=== PATIENT | male | born 1935 | race African-American/Black ===

== ENCOUNTER 2017-06-19 17:44 | Inpatient (IN) | payer MEDICARE ==
[2017-06-19 18:27] LABS: Hemoglobin 14.7 g/dL (14.0-18.0); Mean Corpuscular HGB CONC 32.2 g/dL (32.0-36.0); Mean Corpuscular Hemoglobin 29.7 pg (27.0-31.0); Mean Corpuscular Volume 92.2 fl (80.0-94.0); Mean Platelet Volume 6.9 fL (7.4-10.4); Platelet Count 223 thou/uL (130-400); RBC Distribution Width 12.2 % (11.5-14.5); Red Blood Cell (RBC) Count 4.94 mill/uL (4.70-6.10)
[2017-06-19 18:29] LABS: Bilirubin Negative (Negative); Blood, Urine Moderate (Negative); Clarity CLOUDY (Clear); Glucose, Urine (Dipstick) Negative (Negative); Leukocyte Negative (Negative); Nitrite Negative (Negative); Protein, Urine (Dipstick) Trace mg/dL (Neg-Trace); Specific Gravity, Urine 1.021 (1.002-1.036); Urobilinogen 0.2 mg/dL (0.2-1.0)
[2017-06-19 18:31] LABS: Bacteria/HPF 1+ HPF (None Seen); Hyaline Casts/LPF 0-3 HYALINE CAST LPF (0-3 Hyaline); Pathc Cast-AUWi Flag 0.27 (0-2.49); Squamous Epithelial None Seen HPF (0-3)
[2017-06-19 18:33] LABS: Yeast-AUWi Flag 274.5 (0-25.0)
--- NOTE | 2017-06-19 18:40 | RAD ---
SINGLE VIEW OF THE CHEST: Comparison: 05-30-16 History: Slid out of a chair at home this afternoon with left hip pain, fever, and tachycardia. FINDINGS: Single view of the chest shows a normal sized cardiomediastinal silhouette. There is no evidence of c onsolidation, mass, or pleural effusion. The bones are unremarkable. IMPRESSION: No evidence of acute cardiopulmonary disease. POS: [facility]
[2017-06-19 18:42] LABS: RBC/HPF 0-3 HPF (0-3); Yeast-All Forms None Seen HPF (None Seen)
[2017-06-19 18:47] LABS: ALT (SGPT) 8 U/L (8-55); AST (SGOT) 27 U/L (5-34); Albumin 4.2 g/dL (3.4-4.8); Alkaline Phosphatase 162 U/L (40-150); Anion Gap 18 mmol/L (10-20); BUN (Urea Nitrogen) 44 mg/dL (8.4-25.7); Calc. Creatinine Clearance 0 mL/min (70-130); Carbon Dioxide 20 mmol/L (23-31); Chloride 103 mmol/L (98-107); Estimated GFR-MDRD 32; Globulin 3.8 g/dL (2.4-3.5); Glucose 96 mg/dL (83-110); Potassium 4.4 mmol/L (3.5-5.1); Sodium 137 mmol/L (136-145)
[2017-06-19] MEDS ORDERED: Acetaminophen 325 MG TAB ONE (18:48)
[2017-06-19 18:52] LABS: Band 18 % (5-11); Lymphocytes 5 % (21-51); MDiff Complete? YES; Monocytes 4 % (0-10); Neutrophil 73 % (42-75); PLT Morphology Comment Appears Adequate
--- NOTE | 2017-06-19 18:57 | RAD ---
SINGLE VIEW OF THE PELVIS: Comparison: 05-29-16 History: Fell out of chair at home this afternoon with left hip pain. FINDINGS: Single view of the pelvis shows no evidence of acute fracture or dislocation. No degenerative changes are seen in either hip. No focal soft tissue swelling is seen. IMPRESSION: No evidence of acute osseous abnormality. POS: [facility]
[2017-06-19] MEDS ORDERED: Piperacillin/Tazobactam 4.5 GM in Sodium Chloride 0.9% 100 ML IVPB SCH (19:00)
[2017-06-19] MEDS ORDERED: Vancomycin HCl 500 MG VIAL ONE (19:01)
[2017-06-19] MEDS ORDERED: Sterile Water 10 ML ONE (19:07)
[2017-06-19] MEDS ORDERED: Acetaminophen 325 MG TAB PO PRN ×2 (20:44→22:06)
[2017-06-19] MEDS ORDERED: Ondansetron HCl/PF 4 MG/2 ML Vial IVP PRN (20:44)
[2017-06-19] MEDS ORDERED: Ondansetron ODT 4 MG TAB SL PRN (20:44)
[2017-06-19 21:31] VITALS: BMI 21.5
[2017-06-19] MEDS ORDERED: Guaifenesin DM 100-10/5 ML UDCUP PO PRN (22:06)
[2017-06-19] MEDS ORDERED: Senokot 8.6 MG TAB PO PRN (22:06)
[2017-06-19] MEDS: Sodium Chloride 0.9% 1,000 ML IV SCH (23:43)
--- NOTE | 2017-06-19 23:59 | HP ---
REASON FOR ADMISSION: Sepsis, possible UTI, acute kidney injury on top of chronic kidney disease sta ge 3. HISTORY OF PRESENT ILLNESS: Please note the majority of this history is obtained by talking to the E R physician and prior records as patient is a very poor historian. He does not recall why he was bro ught to the emergency room. Per ER notes, patient was trying to get out of his recliner and slid rupali n off the chair. He was complaining of left hip pain and was not able to bear weight on his leg. He usually walks with a cane by himself per family. He also seemed confused, which was not normal for him. He has been feeling weak and patient was brought to the emergency room. The height of the couc h was less than 3 feet per ER notes. In the ER, the patient had a T-max of 102.8 degrees and was fou nd to have had a white count of 15 and possible urinary tract infection with suprapubic catheter. PAST MEDICAL AND SURGICAL HISTORY: History of benign prostatic hypertrophy with chronic suprapubic c atheter, hypertension, chronic kidney disease stage 3, nephrolithiasis/urolithiasis and debridement o f a back abscess in the past. 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 PERSONAL HISTORY: Patient lives with his . Does not abuse alcohol or drugs. No known drug dayami rgies. FAMILY HISTORY: There is history of diabetes and coronary artery disease in the family. CURRENT MEDICATIONS: The patient does not know what he takes. We will try to obtain the same from h is . He was hospitalized here a year ago, on Coreg twice daily 3.125 mg. REVIEW OF SYSTEMS: Cannot be obtained as patient is not cognitively intact. PHYSICAL EXAMINATION: GENERAL: The patient is an 82-year-old male who is currently not in any acute distress. VITAL SIGNS: Blood pressure 114/70, pulse 110 per minute, respiratory rate 16 per minute, temperatur e 102 degrees Fahrenheit, saturating 95% on room air. NECK: Supple, no elevated JVD. HEENT: Extraocular muscles intact. Pupils are reacting to light. Oral cavity mucous membranes are dry. No exudates or congestion. CARDIOVASCULAR: S1, S2 heard, tachycardic. RESPIRATORY: Air entry 1+ bilateral. Scattered rhonchi plus no wheezes or rales. ABDOMEN: Soft, bowel sounds heard. No tenderness, rigidity or guarding. Suprapubic catheter is in place. EXTREMITIES: There is peripheral edema, no calf tenderness. VASCULAR SYSTEM: Peripheral pulses 1+ bilateral. No ischemic ulcerations or gangrene. CENTRAL NERVOUS SYSTEM: No gross focal deficits seen. Patient is awake, but not oriented. PSYCHIATRIC: Cannot be assessed as patient is not oriented. LABORATORY AND X-RAY FINDINGS: A pelvic x-ray done shows no acute osseous abnormality. Chest x-ray done shows no acute cardiopulmonary abnormalities. Influenza A and B antigens were negative. UA sav ws more than 50 wbc's with 1+ bacteria. Nitrite and leukocyte esterase were negative. Serum bicarbo tenzin 20, BUN 44, creatinine 2.4. Serum glucose 96. Lactic acid was 4.8, albumin is 4.2. White coun t of 15, H&H 14 and 45, platelet count 223 with 73% neutrophils and 18% bands. EKG done shows sinus tachycardia at 108 beats per minute. CLINICAL IMPRESSION AND PLAN: The patient will be admitted to medical floor for sepsis with question able urinary tract infection. Patient has chronic suprapubic catheter. Tomas cultures have been obtai schuyler in the ER. He will be placed on Zosyn for now until cultures come back. He will also be gently hydrated for acute kidney injury on top of his chronic kidney disease stage 3. He will be on normal saline at 60 mL per hour. We will also obtain ultrasound venous Doppler of both lower extremities to rule out DVT. PT, OT evaluations will be requested as well. We will ascertain his home medications once his back in the morning. For now, the CODE STATUS will be FULL.
[2017-06-20 05:32] LABS: Hemoglobin 11.9 g/dL (14.0-18.0); Mean Corpuscular Hemoglobin 29.3 pg (27.0-31.0); Mean Corpuscular Volume 91.5 fl (80.0-94.0); Mean Platelet Volume 7.3 fL (7.4-10.4); Platelet Count 190 thou/uL (130-400); RBC Distribution Width 12.3 % (11.5-14.5); Red Blood Cell (RBC) Count 4.05 mill/uL (4.70-6.10); White Blood Cell (WBC) Count 34.4 thou/uL (4.8-10.8)
[2017-06-20 05:33] LABS: Band 28 % (5-11); Lymphocytes 2 % (21-51); MDiff Complete? YES; Metamyelocyte 4 % (0-0); Monocytes 5 % (0-10); Neutrophil 61 % (42-75)
[2017-06-20 05:51] LABS: Chloride 106 mmol/L (98-107); Potassium 3.8 mmol/L (3.5-5.1); Sodium 139 mmol/L (136-145)
[2017-06-20 05:52] LABS: Calcium 8.9 mg/dL (7.8-10.44); Glucose 62 mg/dL (83-110)
[2017-06-20 05:54] LABS: Carbon Dioxide 19 mmol/L (23-31)
[2017-06-20 05:56] LABS: Calc. Creatinine Clearance 26 mL/min (70-130); Estimated GFR-MDRD 33
[2017-06-20] MEDS: Piperacillin/Tazobactam 2.25 GM in Sodium Chloride 0.9% 100 ML IVPB SCH ×3 (05:56→20:08)
[2017-06-20] MEDS: Sodium Chloride 0.9% 1,000 ML IV SCH (05:56)
[2017-06-20 05:57] LABS: BUN (Urea Nitrogen) 48 mg/dL (8.4-25.7)
[2017-06-20 07:48] LABS: Anion Gap 18 mmol/L (10-20)
--- NOTE | 2017-06-20 08:07 | ULT ---
ULTRASOUND WITH DOPPLER DUPLEX VENOUS LOWER EXTREMITIES BILATERAL: HISTORY: 82-year-old male with bilateral lower extremity pain. TECHNIQUE: Color flow Doppler, spectral waveform analysis of pulsed Doppler, and nieto-scale imaging with luann ara and augmentation, were used to evaluate the bilateral common femoral, femoral, popliteal, green ware caster ior tibial, and superficial femoral, veins; and the proximal portions of the profunda femoral and gre ater saphenous, veins. FINDINGS: There is normal compressibility, demonstration of blood flow by color Doppler and pulsed Doppler, and response to augmentation, in all interrogated veins. IMPRESSION: Negative. No deep vein thrombosis in the bilateral lower extremities. jn[] POS: [facility]
[2017-06-20] MEDS: Famotidine 20 MG TAB PO SCH (10:07)
[2017-06-20] MEDS: Heparin 5,000 UNITS/ML VIAL SC SCH ×2 (10:08→20:08)
--- NOTE | 2017-06-20 15:02 | PDOC.PN ---
- Subjective Encounter Start Date: 06/20/17 Encounter Start Time: 15:00 Subjective: Seen and examined no new complaint - Objective Resuscitation Status: Resuscitation Status FULL:Full Resuscitation Vital Signs & Weight: Vital Signs (12 hours) Temp Pulse Resp BP Pulse Ox 06/20/17 11:00 98.2 F 72 16 90/54 L 97 06/20/17 08:00 98.2 F 72 16 97 06/20/17 07:49 98.5 F 72 16 94/56 L 98 Weight Weight 163 lb 9 oz I&O: 06/19/17 06/20/17 06/21/17 06:59 06:59 06:59 Intake Total 900 Output Total 350 Balance 550 Result Diagrams: 06/20/17 03:42 06/20/17 03:42 Phys Exam - Physical Examination Constitutional: NAD HEENT: PERRLA, moist MMs, sclera anicteric, TM's clear Neck: no nodes, no JVD, supple, full ROM Respiratory: no wheezing, no rales, no rhonchi, clear to auscultation bilateral Cardiovascular: RRR, no significant murmur, no rub Gastrointestinal: soft, non-tender, no distention, positive bowel sounds Musculoskeletal: no edema, pulses present Dx/Plan (1) Sepsis Code(s): A41.9 - SEPSIS, UNSPECIFIED ORGANISM Status: Acute (2) UTI (urinary tract infection) Status: Acute (3) MIRANDA (acute kidney injury) Code(s): N17.9 - ACUTE KIDNEY FAILURE, UNSPECIFIED Status: Acute (4) CKD (chronic kidney disease) stage 3, GFR 30-59 ml/min Code(s): N18.3 - CHRONIC KIDNEY DISEASE, STAGE 3 (MODERATE) Status: Acute - Plan plan discussed w/ family, continue antibiotics, PT/OT, social sciences department chair Gentle rehydration -: Dispo planning soon * .
[2017-06-21] MEDS: Piperacillin/Tazobactam 2.25 GM in Sodium Chloride 0.9% 100 ML IVPB SCH ×3 (05:38→21:48)
[2017-06-21] MEDS: Sodium Chloride 0.9% 1,000 ML IV SCH ×2 (07:50→20:29)
[2017-06-21] MEDS: Heparin 5,000 UNITS/ML VIAL SC SCH ×2 (07:53→20:28)
[2017-06-21] MEDS: Famotidine 20 MG TAB PO SCH (07:53)
--- NOTE | 2017-06-21 14:26 | PDOC.PN ---
- Subjective Encounter Start Date: 06/21/17 Encounter Start Time: 14:25 Mr. Smith was seen today in follow-up. He does not have any complaints. - Objective Resuscitation Status: Resuscitation Status FULL:Full Resuscitation MAR Reviewed: Yes Vital Signs & Weight: Vital Signs (12 hours) Temp Pulse Resp BP BP BP Pulse Ox 06/21/17 08:39 138/72 136/72 06/21/17 08:00 98.5 F 71 16 98 06/21/17 07:26 98.5 F 71 16 120/62 98 Weight Weight 163 lb 9 oz I&O: 06/20/17 06/21/17 06/22/17 06:59 06:59 06:59 Intake Total 900 1200 Output Total 350 1200 Balance 550 0 Result Diagrams: 06/20/17 03:42 06/20/17 03:42 Phys Exam - Physical Examination HEENT: PERRLA Respiratory: no wheezing, no rales, no rhonchi Cardiovascular: RRR, no significant murmur Gastrointestinal: soft, non-tender, positive bowel sounds Musculoskeletal: no edema Dx/Plan (1) MIRANDA (acute kidney injury) Code(s): N17.9 - ACUTE KIDNEY FAILURE, UNSPECIFIED Status: Acute (2) Sepsis Code(s): A41.9 - SEPSIS, UNSPECIFIED ORGANISM Status: Acute (3) UTI (urinary tract infection) Status: Acute (4) Hypertension Code(s): I10 - ESSENTIAL (PRIMARY) HYPERTENSION Status: Chronic - Plan * UTI with sepsis and acute renal failure- improving, however the blood cultures are growing Citrobacter, and the sensitivities are not yet back * Will continue Zosyn pending the results * Leukocytosis- will need to repeat the CBC , and see if the WBC is trending down * HTN- blood pressure is stable.
[2017-06-22 04:50] LABS: Anion Gap 8 mmol/L (10-20); BUN (Urea Nitrogen) 26 mg/dL (8.4-25.7); Calc. Creatinine Clearance 49 mL/min (70-130); Calcium 8.8 mg/dL (7.8-10.44); Carbon Dioxide 25 mmol/L (23-31); Chloride 111 mmol/L (98-107); Estimated GFR-MDRD 69; Glucose 89 mg/dL (83-110); Potassium 3.5 mmol/L (3.5-5.1); Sodium 140 mmol/L (136-145)
[2017-06-22 05:12] LABS: Band 8 % (5-11); Eosinophils 1 % (0-10); Hemoglobin 11.2 g/dL (14.0-18.0); Lymphocytes 8 % (21-51); MDiff Complete? YES; Mean Corpuscular HGB CONC 31.9 g/dL (32.0-36.0); Mean Corpuscular Hemoglobin 29.3 pg (27.0-31.0); Mean Corpuscular Volume 91.7 fl (80.0-94.0); Mean Platelet Volume 7.6 fL (7.4-10.4); Metamyelocyte 1 % (0-0); Monocytes 7 % (0-10); Neutrophil 75 % (42-75); Platelet Count 190 thou/uL (130-400); RBC Distribution Width 11.8 % (11.5-14.5); Red Blood Cell (RBC) Count 3.82 mill/uL (4.70-6.10); White Blood Cell (WBC) Count 19.3 thou/uL (4.8-10.8)
[2017-06-22] MEDS: Piperacillin/Tazobactam 2.25 GM in Sodium Chloride 0.9% 100 ML IVPB SCH ×3 (05:28→23:05)
[2017-06-22] MEDS: Famotidine 20 MG TAB PO SCH (08:01)
[2017-06-22] MEDS: Heparin 5,000 UNITS/ML VIAL SC SCH ×2 (08:02→20:01)
--- NOTE | 2017-06-22 14:07 | PDOC.PN ---
- Subjective Encounter Start Date: 06/22/17 Encounter Start Time: 14:05 Mr. Smith was seen today in follow-up. He continues to feel better. He does not have any complaints today. - Objective Resuscitation Status: Resuscitation Status FULL:Full Resuscitation MAR Reviewed: Yes Vital Signs & Weight: Vital Signs (12 hours) Temp Pulse Resp BP Pulse Ox 06/22/17 08:00 97.9 F 75 16 166/83 H 92 L Weight Weight 163 lb 9 oz I&O: 06/21/17 06/22/17 06/23/17 06:59 06:59 06:59 Intake Total 1200 700 Output Total 1200 1350 Balance 0 -650 Result Diagrams: 06/22/17 04:05 06/22/17 04:05 Phys Exam - Physical Examination HEENT: PERRLA Respiratory: no wheezing, no rales, no rhonchi Cardiovascular: RRR, no significant murmur, no rub Gastrointestinal: soft, non-tender, positive bowel sounds Musculoskeletal: no edema Dx/Plan (1) MIRANDA (acute kidney injury) Code(s): N17.9 - ACUTE KIDNEY FAILURE, UNSPECIFIED Status: Acute (2) Sepsis Code(s): A41.9 - SEPSIS, UNSPECIFIED ORGANISM Status: Acute (3) UTI (urinary tract infection) Status: Acute (4) Hypertension Code(s): I10 - ESSENTIAL (PRIMARY) HYPERTENSION Status: Chronic - Plan * UTI with sepsis- improving- WBC count is beginning to trend down * Acute renal failure- improving * Urinary retention, and Supra-pubic catheter- stable. * HTN- blood pressure is stable * Hopefully home tomorrow if his WBC count has returned closer to normal
[2017-06-22] MEDS: Sodium Chloride 0.9% 1,000 ML IV SCH (17:47)
[2017-06-23 05:16] LABS: #Eosinphils 0.1 thou/uL (0.0-0.7); #Lymphocytes 2.2 thou/uL (1.20-3.40); %Basophils 0.4 % (0.0-1.0); %Eosinophils 1.4 % (0.0-10.0); %Lymphocytes 21.4 % (21.0-51.0); %Monocytes 9.6 % (0.0-10.0); %Neutrophils 67.2 % (42.0-75.0); Hemoglobin 11.3 g/dL (14.0-18.0); Mean Corpuscular HGB CONC 31.9 g/dL (32.0-36.0); Mean Corpuscular Hemoglobin 29.3 pg (27.0-31.0); Mean Corpuscular Volume 92.1 fl (80.0-94.0); Mean Platelet Volume 7.1 fL (7.4-10.4); Platelet Count 216 thou/uL (130-400); Red Blood Cell (RBC) Count 3.87 mill/uL (4.70-6.10); White Blood Cell (WBC) Count 10.5 thou/uL (4.8-10.8)
[2017-06-23 05:24] LABS: Anion Gap 10 mmol/L (10-20); BUN (Urea Nitrogen) 17 mg/dL (8.4-25.7); Calc. Creatinine Clearance 56 mL/min (70-130); Carbon Dioxide 24 mmol/L (23-31); Chloride 110 mmol/L (98-107); Estimated GFR-MDRD 81; Glucose 83 mg/dL (83-110); Potassium 3.5 mmol/L (3.5-5.1); Sodium 140 mmol/L (136-145)
[2017-06-23] MEDS: Piperacillin/Tazobactam 2.25 GM in Sodium Chloride 0.9% 100 ML IVPB SCH (05:35)
[2017-06-23 08:24] VITALS: BP 143/77; TEMP 98.1
[2017-06-23] MEDS: Famotidine 20 MG TAB PO SCH (09:06)
[2017-06-23] MEDS: Heparin 5,000 UNITS/ML VIAL SC SCH (09:07)
--- NOTE | 2017-06-23 11:53 | PDOC.PN ---
- Subjective Encounter Start Date: 06/23/17 Encounter Start Time: 11:51 Mr. Mobley was seen in follow-up of UTI with sepsis. He does not have any complaints today. - Objective Resuscitation Status: Resuscitation Status FULL:Full Resuscitation MAR Reviewed: Yes Vital Signs & Weight: Vital Signs (12 hours) Temp Pulse Resp BP Pulse Ox 06/23/17 08:23 98.1 F 65 18 143/77 H 97 06/23/17 08:00 98.1 F 65 18 97 Weight Weight 163 lb 9 oz I&O: 06/22/17 06/23/17 06/24/17 06:59 06:59 06:59 Intake Total 700 769 Output Total 1350 1600 Balance -650 -831 Result Diagrams: 06/23/17 04:54 06/23/17 04:54 Phys Exam - Physical Examination HEENT: PERRLA Respiratory: no wheezing, no rales, no rhonchi, clear to auscultation bilateral Cardiovascular: RRR, no significant murmur Gastrointestinal: soft, non-tender, positive bowel sounds Musculoskeletal: no edema Dx/Plan (1) MIRANDA (acute kidney injury) Code(s): N17.9 - ACUTE KIDNEY FAILURE, UNSPECIFIED Status: Acute (2) Sepsis Code(s): A41.9 - SEPSIS, UNSPECIFIED ORGANISM Status: Acute (3) UTI (urinary tract infection) Status: Acute (4) Hypertension Code(s): I10 - ESSENTIAL (PRIMARY) HYPERTENSION Status: Chronic - Plan * UTI with sepsis- much improved. His WBC has returned to normal * He can be transitioned to an oral antibiotic, and can be discharged home.
--- NOTE | 2017-06-23 12:33 | DIS ---
PRIMARY CARE PHYSICIAN: Dr. Thao DATE OF ADMISSION: 06/19/2017 DATE OF DISCHARGE: 06/23/2017 DISCHARGE DISPOSITION: Home. PRIMARY DISCHARGE DIAGNOSES: 1. Urinary tract infection with sepsis. 2. Citrobacter sepsis. 3. 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 4. History of benign prostatic hypertrophy with chronic urinary obstruction. 5. Chronic kidney disease stage 3. DISCHARGE MEDICATIONS: Levaquin 500 mg daily for 5 days and to continue phenazopyridine 97.5 mg t.i. d. as needed. CODE STATUS: Full code. ALLERGIES: No known drug allergies. HOSPITAL COURSE: Mr. Smith is a pleasant 82-year-old gentleman who presented to the emergency room with altered mental status. He had been confused and extremely weak. He also had a temperature of 102.8 in the emergency room. He has a chronic indwelling suprapubic catheter and it was found that marlen murdock had a urinary tract infection with sepsis as his blood cultures were positive for Citrobacter koser i and he had an elevated white blood cell count that went up to 34.4 during his hospital stay along w ith the confusion and high fever. He met criteria for sepsis. At the time of discharge his white co unt had dropped from 34,000 to 10.5. He is afebrile and his mental status has improved. He is at wy s usual baseline level of functioning and therefore he will be discharged home today and will continu e Levaquin as the bacteria was susceptible to all antibiotics tested and he is to follow up with his primary care physician in 1-2 weeks.
--- NOTE | 2017-07-01 07:38 | PQF ---
VIKKI CHAPIN ERIC [id number] [id number]- [id number] CLINICAL DOCUMENTATION CLARIFICATION FORM: POST DISCHARGE DATE: 07/01/17 ATTN: Dr. Amado Please exercise your independent, professional judgment in responding to the clarification form. Clinical indicators are provided on the bottom of this form for your review Please check appropriate box(s): [X ] UTI please specify if due to or related to (as applicable): [ X ] Suprapubic catheter [ ] Unable to determine etiology UTI Site: [ X ] Kidney [ ] Ureter [ ] Bladder [ ] Urethra [ ] Unable to determine Specify Organism (if known):___Enterococcus [ ] Unknown organism [ ] Other diagnosis (please specify) [ ] Unable to determine In addition, please specify: Present on Admission (POA): [ X ] Yes [ ] No [ ] Unable to determine For continuity of documentation, please document condition throughout progress notes and discharge summary. Thank You. CLINICAL INDICATORS - SIGNS / SYMPTOMS / LABS (per H&P/labs) Positive urinalysis for Enterococcus Fever of 102.8. White count 34,000. Documentation: UTI RISK FACTORS (per H&P) Chronic suprapubic catheter. Chronic Urinary Retention. TREATMENT: (per progress notes) IV Zosyn. IVF of normal saline at 60 mL per hour. (This form is maintained as a part of the permanent medical record) 2014 [employer] All Rights Reserved [email or web address] [phone] AARON
--- NOTE | 2017-07-01 08:04 | PQF ---
VIKKI CHAPIN TONI MD [id number] [id number]- [id number] [id number] CLINICAL DOCUMENTATION CLARIFICATION FORM: POST DISCHARGE Addendum to original discharge summary date: 06/23/2017 DATE: 07/01/2017 ATTN: Dr. Amado Please exercise your independent, professional judgment in responding to the clarification form. Clinical indicators are provided on the bottom of this form for your review Please check appropriate box(es): [X ] Sepsis due to UTI and chronic indwelling suprapubic catheter [ ] Sepsis due to UTI only [ ] Sepsis, unspecified [X ] Severe sepsis with acute organ dysfunction of: Acute kidney failure (Examples: respiratory failure, encephalopathy, acute kidney failure, other) [ ] Septic Shock [ ] Other diagnosis (please specify) [ ] Unable to determine In addition, please specify: Present on Admission (POA): [ X ] Yes [ ] No [ ] Unable to determine For continuity of documentation, please document condition throughout progress notes and discharge summary. Thank You. CLINICAL INDICATORS - SIGNS / SYMPTOMS / LABS (per H&P/ED record) Altered mental status. Fever 102.8. Respiratory rate 16. Pulse 110. Tachycardia. WBC count 34.000. Positive blood cultures for Citrobacter Koseri. RISK FACTORS (per H&P) UTI with chronic indwelling suprapubic catheter. TREATMENTS: (per labs/physician orders) Activate Sepsis Alert. Blood/urine cultures. IV Zosyn/Vancomycin. IV Fluids. (This form is maintained as a part of the permanent medical record) 2014 [employer] All Rights Reserved Sara [email or web address] [phone] MTDD
--- NOTE | 2017-07-23 15:02 | EKG ---
Test Reason : Blood Pressure : / mmHG Vent. Rate : 108 BPM Atrial Rate : 108 BPM P-R Int : 158 ms QRS Dur : 076 ms QT Int : 296 ms P-R-T Axes : 052 -51 -07 degrees QTc Int : 396 ms Sinus tachycardia Left axis deviation Inferior infarct , age undetermined Abnormal ECG Confirmed by ISMI PONCE ([id number]), food expeditor JOANN ALEJO ([id number]) on 07/23/2017 3:02:21 PM Referred By: Confirmed By:SIMI PONCE
== END 2017-06-23 14:40 | disposition home or self-care (01) | DRG 872 ==
LOC: ERS 17:44 → T4-A 19:13
PROVIDERS: ADMIT Internal Medicine Infectious Disease; ATTEND Internal Medicine Infectious Disease
DX: A41.9 Sepsis, unspecified organism (principal); N17.9 Acute kidney failure, unspecified; N39.0 Urinary tract infection, site not specified; N18.3 Chronic kidney disease, stage 3 (moderate)
CPT/HCPCS: 36415; 71045; 72170; 80048; 80053; 81003; 81015; 83605; 85025; 87040; 87077; 87086; 87149; 87186; 87804; 93005; 93970; 96361; 96365; A4216; G8978-GP-CJ; G8979-GP-CJ; G8980-GP-CJ; G8987-GO-CI; G8988-GO-CI; G8989-GO-CI; J1644; J2543; J3370; J7050

== ENCOUNTER 2019-02-28 08:31 | Outpatient (CLI) | payer MEDICARE ==
--- NOTE | 2019-02-28 10:22 | CT ---
CT ABDOMEN AND PELVIS: 02/28/2019 HISTORY: Prostate cancer. History of suprapubic catheter for years. COMPARISON: 05/30/2016 TECHNIQUE: Axial CT imaging at 5 mm intervals from the lung bases through the pubic symphysis with intravenous c ontrast. Coronal and sagittal reformatted imaging obtained. FINDINGS: Heart size is prominent on photographer's assistant imaging. Superior mediastinum appears widening on the photographer's assistant imaging as well with prominence of the aortic knob and descending thoracic aorta. This could be related to th oracic aortic aneurysm and thus dedicated CT examination of the chest may be beneficial. There are increased linear interstitial densities within both lung bases, left greater than right, wi th mild bronchiectasis. No free intraperitoneal air or fluid is seen. The liver, gallbladder, spleen, pancreas and adrenal glands demonstrate no acute findings. There is a hypodense exophytic lesion emanating from the mid pole of the left kidney laterally, measu ring 3.3 cm, unchanged when compared to the 05/30/2016 exam. Hounsfield units suggest a cyst. Numerou s additional tiny hypodensities are noted within the left kidney, which are too small to characterize . There are also numerous small hypodensities scattered throughout the right kidney, too small to timbo racterize. There is a punctate nonobstructing stone in the mid pole of the right kidney. No evidence for obstruc tive uropathy is appreciated on either side. The prostate gland is enlarged and heterogeneous, not well assessed on this examination. There is a s uprapubic catheter within a decompressed urinary bladder. No enlarged lymph nodes are apparent within the pelvis. No retroperitoneal or mesenteric lymphadenop athy is noted. Limited assessment of the bowel without contrast media demonstrates no evidence for inflammatory bradley ge or obstruction. There is prominent eccentric noncalcified plaque within the infrarenal abdominal aorta on the right. There is an area of aneurysmal dilatation of the infrarenal abdominal aorta measuring 3.5 x 3.8 cm on axial image 42. In addition, the distal infrarenal abdominal aorta demonstrates aneurysmal dilatatio n measuring approximately 3.9 x 3.0 cm. 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 Review of the osseous structures demonstrates multilevel lower lumbar spine facet hypertrophy. No dis crete lytic or blastic bone lesion is evident. There is a nonobstructing, small umbilical hernia containing loops of small bowel. IMPRESSION: 1. No sclerotic bone lesion or lymphadenopathy in the abdomen/pelvis. 2. Possible aneurysmal dilatation of the thoracic aorta noted on photographer's assistant imaging, for which chest CT is suggested. 3. 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 There is also aneurysmal dilat ation of the left common iliac artery and the right internal iliac artery. 4. Numerous additional incidental findings as detailed above. POS: [facility]
--- NOTE | 2019-02-28 13:05 | NM ---
NUCLEAR MEDICINE BONE SCAN WHOLE BODY: (Skeletal scintigraphy) DATE: 02/28/2019 HISTORY: 84-year-old male with prostate cancer. TECHNIQUE: IV injection of technetium 99m-[id number]: 33.0 mCi 3 hour delayed whole body skeletal scintigraphy in anterior and posterior views. FINDINGS: There are no foci of asymmetrically increased uptake that are particularly suspicious for bone metast ases. IMPRESSION: No compelling evidence of skeletal metastasis.
== END 2019-02-28 08:32 | disposition home or self-care (01) ==
LOC: CT 08:31
PROVIDERS: ATTEND Urology
DX: C61 Malignant neoplasm of prostate (principal); I71.4 Abdominal aortic aneurysm, without rupture; I72.3 Aneurysm of iliac artery
CPT/HCPCS: 74177; 78306; 82565; A9503

== ENCOUNTER 2019-04-16 14:06 | Inpatient (IN) | payer MEDICARE ==
[2019-04-16 15:47] LABS: Hemoglobin 10.9 g/dL (14.0-18.0); Mean Corpuscular Hemoglobin 28.5 pg (27.0-31.0); Mean Corpuscular Volume 91.9 fL (78.0-98.0); Mean Platelet Volume 7.3 fL (7.4-10.4); Platelet Count 304 thou/uL (130-400); RBC Distribution Width 12.6 % (11.5-14.5); Red Blood Cell (RBC) Count 3.83 mill/uL (4.70-6.10); White Blood Cell (WBC) Count 19.9 thou/uL (4.8-10.8)
--- NOTE | 2019-04-16 15:50 | RAD ---
PORTABLE CHEST ONE VIEW: Date: 04-16-19 Time: 3:13 p.m. History: Altered mental status. FINDINGS/IMPRESSION: Comparison is made with exam of 06-19-17. The heart is enlarged. The aorta is tortuous. No lobar consolidation or pneumothoraces, willa pulmona ry edema or effusions are identified. POS: [facility]
[2019-04-16 16:03] LABS: Band 13 % (5-11); Lymphocytes 2 % (21-51); MDiff Complete? YES; Monocytes 7 % (0-10); Myelocyte 1 % (0-0); Neutrophil 77 % (42-75); Platelet Morphology Comment Appears Adequate; Polychromasia SLIGHT = 2-3 cells (100X) (0-2/hpf)
[2019-04-16 16:11] LABS: ALT (SGPT) 34 U/L (8-55); AST (SGOT) 277 U/L (5-34); Albumin 4.1 g/dL (3.4-4.8); Alkaline Phosphatase 84 U/L (40-110); Anion Gap 16 mmol/L (10-20); BUN (Urea Nitrogen) 70 mg/dL (8.4-25.7); Bilirubin, Total 0.6 mg/dL (0.2-1.2); Calc. Creatinine Clearance 0 mL/min (70-130); Calcium 9.8 mg/dL (7.8-10.44); Carbon Dioxide 22 mmol/L (23-31); Chloride 115 mmol/L (98-107); Estimated GFR-MDRD 19; Glucose 130 mg/dL (83-110); Potassium 4.9 mmol/L (3.5-5.1); Protein, Total 8.1 g/dL (5.8-8.1); Sodium 148 mmol/L (136-145)
--- NOTE | 2019-04-16 16:26 | CT ---
CT Head without IV contrast COMPARISON: 05/29/2016 HISTORY: Altered mental status. TECHNIQUE: Axial CT imaging at 5 mm intervals from vertex through skull base without contrast FINDINGS: There is no evidence of an acute infarction, hemorrhage, mass effect, or midline shift. There is decr eased attenuation seen in the periventricular white matter which is nonspecific but likely attributable to chronic small vessel ischemic changes. There is mild cerebral volume loss. The ventri cular system is normal in size, shape, and position for the degree of sulcal atrophy. There is suggestion of minimal mastoid effusions on the left. Minimal mucosal thickening is present i n the right sphenoid sinus. Osseous structures appear intact. IMPRESSION: 1. No acute intracranial abnormality demonstrated. 2. Stable chronic small vessel ischemic changes and cerebral volume loss with is stable from prior ex am.
[2019-04-16] MEDS ORDERED: Oseltamivir 75 MG CAP PO SCH (16:45)
[2019-04-16] MEDS ORDERED: Meropenem 2 GM in Sodium Chloride 0.9% 100 ML IVPB SCH (16:45)
[2019-04-16 17:08] LABS: Bacteria/HPF 4+ HPF (None Seen); Bilirubin Negative (Negative); Blood, Urine 2+ (Negative); Clarity Turbid (Clear); Glucose, Urine (Dipstick) Normal (Negative); Leukocyte 500 Leu/uL (Negative); Nitrite Negative (Negative); Protein, Urine (Dipstick) 70 mg/dL (Neg-Trace); Squamous Epithelial None Seen HPF (0-3); Urobilinogen Normal mg/dL (Less than 2); WBC/HPF Greater than 50 HPF (0-3)
[2019-04-16] MEDS ORDERED: Acetaminophen 500 MG TAB ONE (19:22)
--- NOTE | 2019-04-16 20:50 | HP ---
PRIMARY CARE PHYSICIAN: Out-of-town. CHIEF COMPLAINT: Not responding. HISTORY OF PRESENT ILLNESS: This is an 84-year-old male with history of prostate cancer, suprapubic catheter, hypertension, BPH, early dementia, who presents to the emergency room at the direction of Dr. Wilson for a change in mental status. History is obtained from the patient's daughter and son. The son reports that over the past 10 days that the patient has not been himself. He has an urge to urinate, some confusion with such things as not remembering how to use a seat belt, and did not remember the son's name, which are similar symptoms to UTI in the past. He has a suprapubic catheter that is changed out monthly and today went to Dr. Wilson's office for this to happen. While in the office, he stopped speaking, which is unusual for him. Family also notes that he had less breakfast today who also noticed this change in mental status. They were instructed to go to the emergency room. Family has not noticed any fevers, chills, nausea, vomiting or diarrhea. The patient is flu positive in the emergency room, they deny any known flu exposures and reports he did have his flu vaccine. The patient found to be febrile in the emergency room with a temperature of 101.2. The patient denies any pain or problems when asked. In the emergency room, the patient received 2 g of meropenem, 2 L IV fluid, 1 g of vancomycin IV and 75 mg of Tamiflu, and hospitalist called for admission. ALLERGIES: NO KNOWN DRUG ALLERGIES. CURRENT MEDICATIONS: There is a list on the chart, but I am uncertain of how accurate this is. The patient's son does not know his medications and is attempting to obtain this information from his at home in [place]. The emergency room list is: 1. Lisinopril 5 mg b.i.d. 2. Torsemide 20 mg b.i.d. 3. Vitamin C 100 mg daily. 4. Bactrim DS b.i.d., has two days remaining. 5. Myrbetriq 50 mg once daily. 6. Bicalutamide 50 mg daily. 7. Trospium 20 mg b.i.d. 8. Levofloxacin 500 mg for 7 days once daily, unknown if pt is currently taking this. 9. Fleet enema as needed. 10. Prednisone 20 mg b.i.d. PAST MEDICAL HISTORY: 1. Hypertension. 2. BPH. 3. Prostate cancer. 4. Early dementia. PAST SURGICAL HISTORY: 1. Suprapubic catheter. 2. Skin infection, status post I and D. SOCIAL HISTORY: The patient lives in [place] with his son over the past 10 months, who is also his surrogate decision maker, Maykel. No alcohol or tobacco. FAMILY HISTORY: Unknown by family in the room. REVIEW OF SYSTEMS: Review of systems per the patient is negative for everything. As noted above from the family. PHYSICAL EXAMINATION: VITAL SIGNS: Blood pressure 125/78, pulse 75, respirations 26, temp 101.2, and sat 93% on room air. GENERAL: The patient arouses to voice. He is not in apparent distress. He answers questions appropriately. HEENT: His pupils are equal and round. Tympanic membranes translucent. Oral mucosa is pink and dry. NECK: Supple and nontender. LYMPHATICS: No palpable cervical or supraclavicular lymphadenopathy. LUNGS: Clear to auscultation bilateral. No audible wheezing, rhonchi or rales. HEART: Normal S1 and S2. Regular rate and rhythm. No significant murmur. ABDOMEN: Soft with present bowel sounds. Nontender. Nondistended. EXTREMITIES: No clubbing, cyanosis or edema. NEUROLOGIC: No focal deficits. Moves arms and legs equally. SKIN: No visible rashes. DIAGNOSTIC DATA: Chest x-ray is personally reviewed, heart enlarged, but no acute process. Brain CT; no acute intracranial abnormality, stable chronic small-vessel ischemic changes and cerebral volume loss, stable from prior exam. Flu test is positive for flu B. LABORATORY DATA: Today, CBC; 19.9, 10.9, 35.2, 304. Chemistry; 148, 4.9, 115, 22, 70, 3.67, and 130. (Baseline creatinine around 1.2) AST 277, ALT 34, alk phos 84, total protein 8.1, and albumin 4.1. Urinalysis shows 500 leuk esterase, 11 to 20 red blood cells, greater than 50 white blood cells, 4+ bacteria. Lactic acid 1.8. IMPRESSION: 1. Sepsis in a patient with a flu. 2. Presumed urinary tract infection secondary to symptoms. 3. Acute kidney injury in a patient by the ER chart review who is on both fluoroquinolones, Bactrim, NADIA inhibitor, diuretic, with poor p.o. intake. 4. Encephalopathy secondary toa sharon. 5. History of hypertension. 6. History of prostate cancer and benign prostatic hyperplasia with suprapubic catheter. 7. Hypernatremia, mild. 8. Elevated AST. 9. Anemia, chronic and mild. PLAN: 1. Admission to the hospital. 2. Renally dosing all medications to include the meropenem and the Tamiflu. I calculate meropenem at 500 mg q.12 hours and I will consult with pharmacist on when to initiate this as he did receive 2 g load and Tamiflu 30 mg q.48 hours, we will start in 2 days. Due to renal function, hold further Vancomycin - monitor cultures. 3. Obtain medication list. The patient's son is working on this and renally dose all medications that are appropriate to resume. 4. IV fluids. Discussed by phone with Dr. Saunders both the hypernatremia and MIRANDA - will use D5 1/3 NS at 125 ml/hr. D/w Pharmacist and they will compound this medication. 5. Tylenol as needed for fever. 6. Follow blood and urine cultures. 7. Renal ultrasound, urine electrolytes, and Nephrology consultation. 8. DVT prophylaxis with heparin. 9. GI prophylaxis, not indicated. The patient will be written for a renal diet. 10. Code status is full confirmed with the patient's surrogate decision maker and son Maykel. 11. The patient is at high risk given age, comorbidities, and current presentation. 12. Reviewed the plan of care with the family. No questions or further needs at time of evaluation. Job ID: [id number] [facility]
[2019-04-16] MEDS ORDERED: HYDROcodone/Acetaminophen 5/325 mg Tablet PO PRN ×2 (21:26)
[2019-04-16] MEDS ORDERED: Ondansetron PF 4 MG/2 ML Vial IVP PRN (21:26)
[2019-04-16] MEDS ORDERED: Ondansetron ODT 4 MG TAB SL PRN (21:26)
[2019-04-16 22:07] VITALS: BMI 23.1
[2019-04-16] MEDS: SODIUM CHLORIDE IV SCH (22:52)
[2019-04-16] MEDS: WATER IV SCH (22:52)
[2019-04-16] MEDS: DEXTROSE 5% IV SCH (22:52)
[2019-04-16] MEDS: Heparin 5,000 UNITS/ML VIAL SC SCH (22:53)
[2019-04-17] MEDS: DEXTROSE 5% IV SCH ×2 (06:11→12:20)
[2019-04-17] MEDS: WATER IV SCH ×2 (06:11→12:20)
[2019-04-17] MEDS: SODIUM CHLORIDE IV SCH ×2 (06:11→12:20)
[2019-04-17 06:47] LABS: Hemoglobin 9.4 g/dL (14.0-18.0); Mean Corpuscular HGB CONC 31.2 g/dL (32.0-36.0); Mean Corpuscular Hemoglobin 28.8 pg (27.0-31.0); Mean Corpuscular Volume 92.4 fL (78.0-98.0); Mean Platelet Volume 7.4 fL (7.4-10.4); Platelet Count 268 thou/uL (130-400); RBC Distribution Width 12.6 % (11.5-14.5); Red Blood Cell (RBC) Count 3.27 mill/uL (4.70-6.10); White Blood Cell (WBC) Count 22.2 thou/uL (4.8-10.8)
[2019-04-17 07:04] LABS: Anion Gap 9 mmol/L (10-20); BUN (Urea Nitrogen) 53 mg/dL (8.4-25.7); Calc. Creatinine Clearance 24 mL/min (70-130); Carbon Dioxide 26 mmol/L (23-31); Chloride 118 mmol/L (98-107); Estimated GFR-MDRD 28; Glucose 114 mg/dL (83-110); Potassium 4.3 mmol/L (3.5-5.1); Sodium 149 mmol/L (136-145)
[2019-04-17 07:13] LABS: Creatinine, Urine 101.01 mg/dL (63-166)
--- NOTE | 2019-04-17 07:46 | ULT ---
US Renal Bilateral STANDARD: 04/17/2019 8:02 PM CLINICAL HISTORY: Chronic kidney disease. STUDY: Renal ultrasound COMPARISON: None. FINDINGS: Right kidney: Echogenicity: Normal. Masses/cysts: Multiple cysts measuring up to 2.4 cm in size. Hydronephrosis: Moderate Calcifications: None. Length: 12.1 cm Left kidney: Echogenicity: Normal. Masses/cysts: Multiple cysts measuring up to 2.5 cm in size. Hydronephrosis: Moderate Calcifications: None. Length: 12.3 cm Limited visualization of the urinary bladder is unremarkable. IMPRESSION: 1. Moderate bilateral hydronephrosis 2. Bilateral renal cysts.
[2019-04-17] MEDS: Heparin 5,000 UNITS/ML VIAL SC SCH ×2 (07:52→20:16)
[2019-04-17 08:12] LABS: Band 11 % (5-11); Hypochromia SLIGHT = 6-15 cells (100X) (0-5/hpf); Lymphocytes 9 % (21-51); MDiff Complete? YES; Monocytes 5 % (0-10); Neutrophil 75 % (42-75); Platelet Morphology Comment Appears Adequate; Polychromasia SLIGHT = 2-3 cells (100X) (0-2/hpf)
[2019-04-17] MEDS ORDERED: Prevnar 13-Val Conj/PF 0.5 ML SYRINGE IM ONE (09:00)
--- NOTE | 2019-04-17 12:23 | CON ---
DATE OF CONSULTATION: REASON FOR CONSULTATION: Hypernatremia and acute kidney injury. HISTORY OF PRESENT ILLNESS: This is a very pleasant 84-year-old gentleman, seen a couple of years ago, presented to the hospital yesterday for altered mental status. The patient's creatinine was 3.6 and after hydration, improved to 2.6. His sodium was 148. The patient cannot give no further detailed history like nausea, vomiting, or chest pain. PAST MEDICAL HISTORY: Significant for hypertension, BPH, prostate cancer, dementia, suprapubic catheter, skin infection, CKD, and history of acute kidney injury. Baseline creatinine last year was 1.2 and peak creatinine was 4.4. PAST SURGICAL HISTORY: Significant for suprapubic catheter. SOCIOECONOMIC HISTORY: No alcohol or drug use. FAMILY HISTORY: Negative for ESRD. ALLERGIES: REVIEWED. HOME MEDICATIONS: List reviewed. HOSPITAL MEDICATIONS: List reviewed. REVIEW OF SYSTEMS: A 15-point review of system was performed, negative except for positive noted above. GENERAL: HEAD: NECK: No swelling or lumps. NOSE: No epistaxis or discharge. EYES: No diplopia or pain. RESPIRATORY: CARDIOVASCULAR: GASTROINTESTINAL: /FABRICATOR FOAM RUBBER: MUSCULOSKELETAL: No joint pain. NEUROPSYCHIATIC SYSTEMS: No suicidal ideation. No ideation. SKIN: Denies any rash or ulcer. CONSTITUTIONAL: No fever or chills. PHYSICAL EXAMINATION: CONSTITUTIONAL: The patient is awake and alert. VITAL SIGNS: Afebrile, pulse 75, breathing 16, blood pressure was 122/80. GENERAL APPEARANCE AND MENTAL STATUS: Fair. HEAD/NECK: Normocephalic. Atraumatic. EYES: EOMI. No deformity. EARS: Clear. No ulcers. NOSE: Intact. No lesions. MOUTH: Clear. No discharge. THROAT: Clear. No exudate. LUNGS: Clear. No crackles. CARDIAC: S1, S2. No rub. ABDOMEN: Benign. Bowel sounds positive. GENITALIA/RECTUM: Schilling absent. BACK/EXTREMITIES: Edema 0+. NEUROLOGICAL: Alert and motor intact. SKIN: LYMPHATICS: LABORATORY DATA: Labs reviewed. ASSESSMENT AND PLAN: Acute kidney injury with chronic kidney disease due to acute tubular necrosis because of decreased effective arterial blood volume, continue hydration. Hypernatremia, continue D5W at 50 mL/h. Anemia, stable. Medication based on GFR appropriate. No indication for dialysis at this time. Job ID: [id number]
--- NOTE | 2019-04-17 14:59 | PDOC.HOSPP ---
- Subjective Encounter Date: 04/17/19 (f/u KRISSY) Encounter Time: 14:52 Subjective: Pt more alert today - noticed by family, eating today. Pt is without complaints today. Denies any pain/coughing/n/v - Objective Vital Signs & Weight: Vital Signs (12 hours) Temp Pulse Resp BP Pulse Ox 04/17/19 11:49 99.9 F H 80 20 116/78 99 04/17/19 07:55 96 04/17/19 07:30 99.1 F 79 20 122/80 96 04/17/19 04:50 98.3 F 86 18 124/79 96 Weight Weight 180 lb 1.6 oz I&O: 04/16/19 04/17/19 04/18/19 06:59 06:59 06:59 Intake Total 1320 Output Total 500 Balance 820 Result Diagrams: 04/17/19 06:19 04/17/19 06:19 Hospitalist ROS - Medication Medications: Active Medications Generic Name Dose Route Start Last Admin Trade Name Freq PRN Reason Stop Dose Admin Heparin Sodium (Porcine) 5,000 units 04/16/19 21:00 04/17/19 07:52 Heparin SC 5,000 units BID DILCIA Administration Sodium Chloride 10 ml 04/17/19 09:00 04/17/19 07:54 Flush - Normal Saline IVF 10 ml Q12HR DILCIA Administration - Exam General Appearance: NAD Heart: RRR, no murmur Respiratory: CTAB, no wheezes, no rales, no ronchi Gastrointestinal: soft, non-tender, non-distended, normal bowel sounds Extremities: no cyanosis, no clubbing, no edema Psychiatric: normal affect Hosp A/P (1) Sepsis Code(s): A41.9 - SEPSIS, UNSPECIFIED ORGANISM Status: Acute Qualifiers: Sepsis type: sepsis due to unspecified organism Sepsis acute organ dysfunction status: with acute organ dysfunction Severe sepsis acute organ dysfunction type: acute renal failure Severe sepsis shock status: without septic shock (2) KRISSY (acute kidney injury) Code(s): N17.9 - ACUTE KIDNEY FAILURE, UNSPECIFIED Status: Acute (3) Influenza Code(s): J11.1 - FLU DUE TO UNIDENTIFIED INFLUENZA VIRUS W OTH RESP MANIFEST Status: Acute (4) Complicated UTI (urinary tract infection) Code(s): N39.0 - URINARY TRACT INFECTION, SITE NOT SPECIFIED Status: Acute (5) Encephalopathy Code(s): G93.40 - ENCEPHALOPATHY, UNSPECIFIED Status: Acute (6) Hypernatremia Code(s): E87.0 - HYPEROSMOLALITY AND HYPERNATREMIA Status: Acute (7) Elevated AST (SGOT) Code(s): R74.0 - NONSPEC ELEV OF LEVELS OF TRANSAMNS & LACTIC ACID DEHYDRGNSE Status: Acute (8) Anemia Code(s): D64.9 - ANEMIA, UNSPECIFIED Status: Acute (9) Hypertension Code(s): I10 - ESSENTIAL (PRIMARY) HYPERTENSION Status: Chronic - Plan Krissy secondary to ATN - appreciate Nephrology consult - hypernatremia persists - change to D5W and will slow the rate down and continue hydration Ucx with growth - follow for ID& sensitivity - continue renally dosed meropenem Influenza - continue renally dosed tamiflu Sepsis - secondary to influenza, hemodynamically normal confirmed home meds with daughter - pt is not on prednisone - this was d/c. Meds updated and reconcilled in the system - he is only on lisinopril, trospium and bactrim at home - holding all of them PT for weakness dvt prophy - heparin gi prophy - not indicated, taking PO code status full reviewed plan of care with patient/daughter, no questions or further needs at end of eval pt at high risk given age, comorbidity and current presentation
[2019-04-17] MEDS: Dextrose 5% in Water 1,000 ML IV SCH (15:00)
[2019-04-17] MEDS: Acetaminophen 325 MG TAB PO PRN ×2 (17:41→18:45)
[2019-04-17] MEDS: Meropenem 500 MG in Sodium Chloride 0.9% 100 ML IVPB SCH (20:16)
[2019-04-18] MEDS ORDERED: predniSONE 20 MG TAB PO SCH (08:00)
[2019-04-18] MEDS: Dextrose 5% in Water 1,000 ML IV SCH (12:34)
[2019-04-18] MEDS: Meropenem 500 MG in Sodium Chloride 0.9% 100 ML IVPB SCH ×2 (12:35→20:35)
[2019-04-18] MEDS: Heparin 5,000 UNITS/ML VIAL SC SCH ×2 (12:36→20:35)
--- NOTE | 2019-04-18 13:10 | PDOC.HOSPP ---
- Subjective Encounter Date: 04/18/19 (f/u Flu) Encounter Time: 13:09 Subjective: 84 y/o male now on HD 3 for sepsis, influenza, hypernatremia, KRISSY secondary to ATN, complicated UTI with dislodged suprapubic cath and purulent/thick white urine. Pt has been on renally dosed meropenem, tamiflu and hydrated with hypotonic IVF. Pt reports he is feeling good - denies any pain or problems. Denies n/v/abd pain. Has not worked with PT yet. - Objective Vital Signs & Weight: Vital Signs (12 hours) BP 04/18/19 10:05 127/76 Weight Weight 180 lb 1.6 oz I&O: 04/17/19 04/18/19 04/19/19 06:59 06:59 06:59 Intake Total 1320 1150 Output Total 500 950 Balance 820 200 Result Diagrams: 04/18/19 06:50 04/18/19 17:20 Additional Labs: BMP today 144/3.5/114/22/40/2.02/93, Ca 8.7, CBC today not available. Urine cultur - low colony count of <10,000 Hospitalist ROS - Medication Medications: Active Medications Generic Name Dose Route Start Last Admin Trade Name Freq PRN Reason Stop Dose Admin Acetaminophen 650 mg 04/16/19 19:59 04/17/19 18:45 Tylenol PO 650 mg Q6H PRN Administration Headache/Fever/Mild Pain (1-3) Heparin Sodium (Porcine) 5,000 units 04/16/19 21:00 04/18/19 12:36 Heparin SC Not Given BID DILCIA Meropenem 500 mg/ Sodium 100 mls @ 200 mls/hr 04/17/19 21:00 04/18/19 12:35 Chloride IVPB 100 mls Q12HR DILCIA Administration Dextrose/Water 1,000 mls @ 50 mls/hr 04/17/19 14:15 04/18/19 12:34 D5w IV 1,000 mls .Q20H DILCIA Administration Sodium Chloride 10 ml 04/17/19 09:00 04/18/19 12:36 Flush - Normal Saline IVF Not Given Q12HR DILCIA - Exam General Appearance: NAD Neck: no lymphadenopathy Heart: RRR, no murmur Respiratory: CTAB, no wheezes, no rales, no ronchi Gastrointestinal: soft, non-tender, non-distended, normal bowel sounds Extremities: no cyanosis, no clubbing, no edema Psychiatric: normal affect Hosp A/P (1) Sepsis Code(s): A41.9 - SEPSIS, UNSPECIFIED ORGANISM Status: Acute Qualifiers: Sepsis type: sepsis due to unspecified organism Sepsis acute organ dysfunction status: with acute organ dysfunction Severe sepsis acute organ dysfunction type: acute renal failure Severe sepsis shock status: without septic shock (2) KRISSY (acute kidney injury) Code(s): N17.9 - ACUTE KIDNEY FAILURE, UNSPECIFIED Status: Acute (3) Influenza Code(s): J11.1 - FLU DUE TO UNIDENTIFIED INFLUENZA VIRUS W OTH RESP MANIFEST Status: Acute (4) Complicated UTI (urinary tract infection) Code(s): N39.0 - URINARY TRACT INFECTION, SITE NOT SPECIFIED Status: Acute (5) Encephalopathy Code(s): G93.40 - ENCEPHALOPATHY, UNSPECIFIED Status: Acute (6) Hypernatremia Code(s): E87.0 - HYPEROSMOLALITY AND HYPERNATREMIA Status: Acute (7) Elevated AST (SGOT) Code(s): R74.0 - NONSPEC ELEV OF LEVELS OF TRANSAMNS & LACTIC ACID DEHYDRGNSE Status: Acute (8) Anemia Code(s): D64.9 - ANEMIA, UNSPECIFIED Status: Acute (9) Hypertension Code(s): I10 - ESSENTIAL (PRIMARY) HYPERTENSION Status: Chronic - Plan Krissy secondary to ATN - appreciate Nephrology consult - hypernatremia resolved - KRSISY improved - will continue gentle hydration with D5W - pt tolerating well Ucx moreira-sensitive E coli from the outpatient setting/Dr. Wilosn's office. Discussed with Dr. Wilson who reports the suprapubic cath was in the wrong place, the drainage with purulent/thick/white when it was removed and he recommends tx for 7-10 days with levaquin. will change to renally-dosed (250 mg daily) and plan for 10 days total given description of infection/complicated UTI. Influenza - continue renally dosed tamiflu - change to 30 mg daily now that renal function is improved Sepsis - secondary to influenza, hemodynamically normal med rec has been performed PT for weakness dvt prophy - heparin gi prophy - not indicated, taking PO code status full reviewed plan of care with patient/daughter, no questions or further needs at end of eval pt at high risk given age, comorbidity and current presentation
[2019-04-18 13:41] LABS: Hemoglobin 9.2 g/dL (14.0-18.0); Mean Corpuscular HGB CONC 30.7 g/dL (32.0-36.0); Mean Corpuscular Hemoglobin 28.9 pg (27.0-31.0); Mean Corpuscular Volume 94.2 fL (78.0-98.0); Mean Platelet Volume 8.2 fL (7.4-10.4); Platelet Count 282 thou/uL (130-400); RBC Distribution Width 12.4 % (11.5-14.5); Red Blood Cell (RBC) Count 3.18 mill/uL (4.70-6.10); White Blood Cell (WBC) Count 22.7 thou/uL (4.8-10.8)
[2019-04-18 14:06] LABS: Band 13 % (5-11); Hypochromia SLIGHT = 6-15 cells (100X) (0-5/hpf); Lymphocytes 11 % (21-51); MDiff Complete? YES; Monocytes 8 % (0-10); Neutrophil 68 % (42-75); Platelet Morphology Comment Appears Adequate; Polychromasia SLIGHT = 2-3 cells (100X) (0-2/hpf)
--- NOTE | 2019-04-18 15:37 | PRG ---
DATE OF SERVICE: 04/18/2019 SUBJECTIVE: This is an 84-year-old gentleman, being seen for acute kidney injury. The patient denies any nausea, vomiting, or chest pain. OBJECTIVE: GENERAL: The patient is awake and alert. VITAL SIGNS: Afebrile, pulse 75, breathing 16, blood pressure 127/76. GENERAL APPEARANCE AND MENTAL STATUS: Fair. HEAD/NECK: Normocephalic. Atraumatic. EYES: EOMI. No deformity. EARS: Clear. No ulcers. NOSE: Intact. No lesions. MOUTH: Clear. No discharge. THROAT: Clear. No exudate. LUNGS: Clear. No crackles. CARDIAC: S1, S2. No rub. ABDOMEN: Benign. Bowel sounds positive. GENITALIA/RECTUM: Schilling absent. BACK/EXTREMITIES: Edema 0+. NEUROLOGICAL: Alert and motor intact. SKIN: LYMPHATICS: LABORATORY DATA: Pending. ASSESSMENT AND PLAN: 1. Stage 3 chronic kidney disease. Recheck labs. 2. Hypertension, stable. 3. Anemia, stable. 4. Hypernatremia. Recheck labs. Acute tubular necrosis, improved. No indication for dialysis. I will order labs stat. Job ID: [id number]
[2019-04-18] MEDS: Oseltamivir 6 MG/ML ORAL SUSP PO SCH (17:15)
[2019-04-18 17:24] LABS: Anion Gap 12 mmol/L (10-20); BUN (Urea Nitrogen) 40 mg/dL (8.4-25.7); Calc. Creatinine Clearance 31 mL/min (70-130); Calcium 8.7 mg/dL (7.8-10.44); Carbon Dioxide 22 mmol/L (23-31); Chloride 114 mmol/L (98-107); Estimated GFR-MDRD 38; Glucose 93 mg/dL (83-110); Potassium 3.5 mmol/L (3.5-5.1); Sodium 144 mmol/L (136-145)
[2019-04-18 18:07] LABS: Anion Gap 10 mmol/L (10-20); BUN (Urea Nitrogen) 35 mg/dL (8.4-25.7); Calc. Creatinine Clearance 33 mL/min (70-130); Calcium 8.7 mg/dL (7.8-10.44); Carbon Dioxide 24 mmol/L (23-31); Chloride 113 mmol/L (98-107); Estimated GFR-MDRD 41; Glucose 107 mg/dL (83-110); Potassium 3.8 mmol/L (3.5-5.1); Sodium 143 mmol/L (136-145)
[2019-04-18] MEDS: Acetaminophen 325 MG TAB PO PRN (20:35)
[2019-04-19] MEDS: Dextrose 5% in Water 1,000 ML IV SCH ×2 (05:32→20:53)
[2019-04-19 06:05] LABS: #Eosinphils 0.1 thou/uL (0.0-0.7); #Lymphocytes 1.5 thou/uL (1.20-3.40); #Monocytes 1.2 thou/uL (0.11-0.59); %Basophils 0.2 % (0.0-1.0); %Eosinophils 0.6 % (0.0-10.0); %Lymphocytes 8.2 % (21.0-51.0); %Monocytes 6.2 % (0.0-10.0); %Neutrophils 84.8 % (42.0-75.0); Hemoglobin 9.6 g/dL (14.0-18.0); Mean Corpuscular HGB CONC 30.6 g/dL (32.0-36.0); Mean Corpuscular Hemoglobin 28.8 pg (27.0-31.0); Mean Corpuscular Volume 94.3 fL (78.0-98.0); Mean Platelet Volume 7.7 fL (7.4-10.4); Platelet Count 299 thou/uL (130-400); RBC Distribution Width 12.3 % (11.5-14.5); Red Blood Cell (RBC) Count 3.32 mill/uL (4.70-6.10); White Blood Cell (WBC) Count 18.8 thou/uL (4.8-10.8)
[2019-04-19 06:26] LABS: Anion Gap 14 mmol/L (10-20); BUN (Urea Nitrogen) 34 mg/dL (8.4-25.7); Calc. Creatinine Clearance 39 mL/min (70-130); Calcium 8.4 mg/dL (7.8-10.44); Carbon Dioxide 19 mmol/L (23-31); Chloride 113 mmol/L (98-107); Estimated GFR-MDRD 49; Glucose 109 mg/dL (83-110); Potassium 3.6 mmol/L (3.5-5.1); Sodium 142 mmol/L (136-145)
[2019-04-19] MEDS: Heparin 5,000 UNITS/ML VIAL SC SCH ×2 (08:25→20:54)
--- NOTE | 2019-04-19 13:16 | PQF ---
DATE: 04-19-19 ATTN: DR. SPEEDY VÁSQUEZ Please exercise your independent, professional judgment in responding to the clarification form. Clinical indicators are provided on the bottom of this form for your review Please check appropriate box(s): [ XX ] Encephalopathy: Type: [ XX ] Acute [ ] Subacute [ ] Chronic Etiology: [ ] Metabolic [ ] Toxic [ XX ] Septic [ ] Other (please specify) [ ] Transient Alteration of Awareness [ ] Other diagnosis [ ] Unable to determine In addition, please specify: Present on Admission (POA): [ XX ] Yes [ ] No [ ] Unable to determine For continuity of documentation, please document condition throughout progress notes and discharge summary. Thank You. CLINICAL INDICATORS - SIGNS / SYMPTOMS / LABS / RESULTS AND LOCATION IN EMR: ER DX 04-16-19: UTI, MIRANDA, AMS, INFLUENZA H&P 04-16-19: SEPSIS IN A PT WITH A FLU, PRESUMED UTI 2/2 TO SYMPTOMS, MIRANDA, ENCEPHALOPATHY 2/[address] BELCHER 04-19-19: ACUTE ENCEPHALOPATHY, HYPERNATREMIA, COMPLICATED UTI, SEPSIS, MIRANDA, ACUTE INFLUENZA RISK FACTORS / RESULTS AND LOCATION IN EMR: PN DR. BELCHER 04-19-19: ACUTE ENCEPHALOPATHY, HYPERNATREMIA, COMPLICATED UTI, SEPSIS, MIRANDA, ACUTE INFLUENZA TREATMENTS / RESULTS AND LOCATION IN EMR: MAR: 04-17-19: IVF, LEVAQUIN PO Cause is corrected encephalopathy resolves Antihypertensives (IV) Lactulose and Liver studies MTDD
--- NOTE | 2019-04-19 13:30 | PRG ---
DATE OF SERVICE: 04/19/2019 SUBJECTIVE: An 84-year-old gentleman being seen for acute kidney injury. The patient denied nausea, vomiting, or chest pain. OBJECTIVE: GENERAL: The patient is awake, alert. VITAL SIGNS: Afebrile. Pulse 91, breathing 16, blood pressure 102/66. GENERAL APPEARANCE AND MENTAL STATUS: Fair. HEAD/NECK: Normocephalic. Atraumatic. EYES: EOMI. No deformity. EARS: Clear. No ulcers. NOSE: Intact. No lesions. MOUTH: Clear. No discharge. THROAT: Clear. No exudate. LUNGS: Clear. No crackles. CARDIAC: S1, S2. No rub. ABDOMEN: Benign. Bowel sounds positive. GENITALIA/RECTUM: Schilling absent. BACK/EXTREMITIES: Edema 0+. NEUROLOGICAL: Alert and motor intact. SKIN: LYMPHATICS: LABORATORY DATA: Labs showed hemoglobin 9.6. Creatinine 1.6, sodium 142. ASSESSMENT AND PLAN: 1. Acute kidney injury, improved. 2. Hypernatremia, improved. 3. Metabolic acidosis, stable. No indication for dialysis. I will sign off. Please reconsult as needed. He will follow up in 2 months to see me. Job ID: [id number]
[2019-04-19] MEDS: Oseltamivir 6 MG/ML ORAL SUSP PO SCH (15:26)
--- NOTE | 2019-04-19 16:05 | PDOC.HOSPP ---
- Subjective Subjective: Seen and examined. Patient is encephalopathy and confused to his baseline. I discussed the the case at length with his daughter at bedside who is able to aid in history. Patient tells me he is over 89 years old and lives at home in [place] with his father who is also over 100 years old. Patient does not know the year. Patient has poor insight in the clinical condition. Patient' s daughter tells me that with acute viral illness and bacterial urinary tract infection he had been very lethargic and week for two days, he has turned a corner and started to improve dramatically. Patient is working with physical therapy and occupational therapy who recommended the patient safe for rehab versus detention facility. At this point the patient is deemed medically safe for lower level of care. Discuss the case with case management and the patient's daughter at the same time and if the patient does not continue to improve he may require a short round of inpatient therapy services. - Objective Vital Signs & Weight: Vital Signs (12 hours) Temp Pulse Resp BP Pulse Ox 04/19/19 12:00 99.4 F 91 22 H 103/66 93 L 04/19/19 08:00 93 L 04/19/19 07:48 98.9 F 92 20 102/66 93 L Weight Weight 180 lb 1.6 oz I&O: 04/18/19 04/19/19 04/20/19 06:59 06:59 06:59 Intake Total 1150 1807 Output Total 950 1500 Balance 200 307 Result Diagrams: 04/19/19 05:34 04/19/19 05:34 Radiology Reviewed by me: Yes Hospitalist ROS - Review of Systems All other systems reviewed; all pertinent +/- noted in HPI/Subj - Medication Medications: Active Medications Generic Name Dose Route Start Last Admin Trade Name Freq PRN Reason Stop Dose Admin Acetaminophen 650 mg 04/16/19 19:59 04/18/19 20:35 Tylenol PO 650 mg Q6H PRN Administration Headache/Fever/Mild Pain (1-3) Heparin Sodium (Porcine) 5,000 units 04/16/19 21:00 04/19/19 08:25 Heparin SC 5,000 units BID DILCIA Administration Dextrose/Water 1,000 mls @ 50 mls/hr 04/17/19 14:15 04/19/19 05:32 D5w IV Not Given .Q20H DILCIA Levofloxacin 250 mg 04/19/19 06:00 04/19/19 05:31 Levaquin PO 250 mg 0600 DILCIA Administration Oseltamivir Phosphate 30 mg 04/18/19 15:00 04/19/19 15:26 Tamiflu PO 30 mg 1500 DLICIA Administration Sodium Chloride 10 ml 04/17/19 09:00 04/19/19 08:27 Flush - Normal Saline IVF 10 ml Q12HR DILCIA Administration - Exam General Appearance: NAD Eye: PERRL, anicteric sclera ENT: normocephalic atraumatic, moist mucosa Neck: supple, symmetric, no lymphadenopathy Heart: no murmur, no gallops, no rubs Respiratory: CTAB, no wheezes, no rales, no ronchi, normal chest expansion Gastrointestinal: soft, non-tender, non-distended, no guarding, no rigidity Extremities: no clubbing, no edema Skin: no lesions, no rashes Neurological: cranial nerve grossly intact, no focal deficits Musculoskeletal: generalized weakness Psychiatric: normal affect, oriented to person Hosp A/P (1) Anemia Code(s): D64.9 - ANEMIA, UNSPECIFIED Status: Acute (2) Complicated UTI (urinary tract infection) Code(s): N39.0 - URINARY TRACT INFECTION, SITE NOT SPECIFIED Status: Acute (3) Encephalopathy Code(s): G93.40 - ENCEPHALOPATHY, UNSPECIFIED Status: Acute (4) Hypernatremia Code(s): E87.0 - HYPEROSMOLALITY AND HYPERNATREMIA Status: Acute (5) Influenza Code(s): J11.1 - FLU DUE TO UNIDENTIFIED INFLUENZA VIRUS W OTH RESP MANIFEST Status: Acute (6) MIRANDA (acute kidney injury) Code(s): N17.9 - ACUTE KIDNEY FAILURE, UNSPECIFIED Status: Acute (7) MIRANDA (acute kidney injury) Code(s): N17.9 - ACUTE KIDNEY FAILURE, UNSPECIFIED Status: Acute (8) CKD (chronic kidney disease) stage 3, GFR 30-59 ml/min Code(s): N18.3 - CHRONIC KIDNEY DISEASE, STAGE 3 (MODERATE) Status: Acute (9) Severe sepsis with acute organ dysfunction Code(s): A41.9 - SEPSIS, UNSPECIFIED ORGANISM; R65.20 - SEVERE SEPSIS WITHOUT SEPTIC SHOCK Status: Acute (10) UTI (urinary tract infection) Status: Acute Qualifiers: Urinary tract infection type: catheter-associated UTI Indwelling urinary catheter type: indwelling urethral catheter Encounter type: initial encounter Qualified Code(s): T83.511A - Infection and inflammatory reaction due to indwelling urethral catheter, initial encounter; N39.0 - Urinary tract infection , site not specified (11) Urinary retention due to benign prostatic hyperplasia Code(s): N28.89 - OTHER SPECIFIED DISORDERS OF KIDNEY AND URETER; R33.8 - OTHER RETENTION OF URINE Status: Chronic - Plan Plan: medical unit nephrology consultation, recommendations appreciated oral antibiotics for urinary tract infection, renally dose antiviral therapy for acute acute flu a positive continue other home medications as able physical therapy and occupational therapy evaluation and treatment patient's renal function has improved dramatically from a creatinine 3.6 on arrival down to 1.6 on 04/19 hypernatremia has also improved with sodium 149 down to 142 on 04/19 G.I. prophylaxis DVT prophylaxis Disposition: at this point the patient is stable for lower level of care I've discuss the case with case management and the patient's daughter. Patient's daughter wishes that he will continue to clinically improve and he may be recommended safer discharge home. At this point the patient has worked with physical therapy and occupational therapy who have recommended detention facility placement versus inpatient rehab.
[2019-04-20] MEDS: Dextrose 5% in Water 1,000 ML IV SCH (01:41)
[2019-04-20] MEDS: Heparin 5,000 UNITS/ML VIAL SC SCH ×2 (08:02→21:13)
[2019-04-20] MEDS: Oseltamivir 6 MG/ML ORAL SUSP PO SCH (14:57)
--- NOTE | 2019-04-20 15:50 | PDOC.HOSPP ---
- Subjective Subjective: Seen and examined. Clinically unchanged. Patient laying in bed, breathing comfortably on room air. Patient and no apparent distress. Patient is confused to his baseline. Patient's physical strength has significantly improved per his daughter. Patient continues to be profoundly weak when working with physical therapy and is still most appropriate for rehabilitation versus custodial facility at this time. Will give the patient an additional day or so to continue to work with physical therapy and work on his physical strength if Tuesday comes around the patient has not significantly progress the patient's family will decide on whether they are able to take care of them at home or whether custodial facility is most appropriate placement. Patient's family is an employee of the hospital and I discussed this with her at length, they desire to take him home if at all possible. - Objective Vital Signs & Weight: Vital Signs (12 hours) Temp Pulse Resp BP Pulse Ox 04/20/19 11:03 99.6 F 85 16 113/79 94 L 04/20/19 08:00 94 L 04/20/19 07:18 98.9 F 83 16 111/76 94 L Weight Weight 180 lb 1.6 oz I&O: 04/19/19 04/20/19 04/21/19 06:59 06:59 06:59 Intake Total 1807 1010 Output Total 1500 700 Balance 307 310 Result Diagrams: 04/19/19 05:34 04/19/19 05:34 Radiology Reviewed by me: Yes Hospitalist ROS - Review of Systems All other systems reviewed; all pertinent +/- noted in HPI/Subj - Medication Medications: Active Medications Generic Name Dose Route Start Last Admin Trade Name Freq PRN Reason Stop Dose Admin Acetaminophen 650 mg 04/16/19 19:59 04/18/19 20:35 Tylenol PO 650 mg Q6H PRN Administration Headache/Fever/Mild Pain (1-3) Heparin Sodium (Porcine) 5,000 units 04/16/19 21:00 04/20/19 08:02 Heparin SC 5,000 units BID DILCIA Administration Dextrose/Water 1,000 mls @ 50 mls/hr 04/17/19 14:15 04/20/19 01:41 D5w IV Not Given .Q20H DILCIA Levofloxacin 250 mg 04/19/19 06:00 04/20/19 05:15 Levaquin PO 250 mg 0600 DILCIA Administration Oseltamivir Phosphate 30 mg 04/18/19 15:00 04/20/19 14:57 Tamiflu PO 30 mg 1500 DILCIA Administration Sodium Chloride 10 ml 04/17/19 09:00 04/20/19 08:03 Flush - Normal Saline IVF Not Given Q12HR DILCIA - Exam General Appearance: NAD Eye: PERRL, anicteric sclera ENT: normocephalic atraumatic, moist mucosa Neck: supple, symmetric, no lymphadenopathy Heart: no murmur, no gallops, no rubs Respiratory: CTAB, no wheezes, no rales, no ronchi Gastrointestinal: soft, non-tender, non-distended, no guarding, no rigidity Extremities: no edema Skin: no lesions, no rashes Neurological: cranial nerve grossly intact, no focal deficits Musculoskeletal: generalized weakness, diffuse muscle atrophy Psychiatric: oriented to person. negative: oriented to place, oriented to time Hosp A/P (1) Anemia Code(s): D64.9 - ANEMIA, UNSPECIFIED Status: Acute (2) Complicated UTI (urinary tract infection) Code(s): N39.0 - URINARY TRACT INFECTION, SITE NOT SPECIFIED Status: Acute (3) Encephalopathy Code(s): G93.40 - ENCEPHALOPATHY, UNSPECIFIED Status: Acute (4) Hypernatremia Code(s): E87.0 - HYPEROSMOLALITY AND HYPERNATREMIA Status: Acute (5) Influenza Code(s): J11.1 - FLU DUE TO UNIDENTIFIED INFLUENZA VIRUS W OTH RESP MANIFEST Status: Acute (6) MIRNADA (acute kidney injury) Code(s): N17.9 - ACUTE KIDNEY FAILURE, UNSPECIFIED Status: Acute (7) MIRANDA (acute kidney injury) Code(s): N17.9 - ACUTE KIDNEY FAILURE, UNSPECIFIED Status: Acute (8) CKD (chronic kidney disease) stage 3, GFR 30-59 ml/min Code(s): N18.3 - CHRONIC KIDNEY DISEASE, STAGE 3 (MODERATE) Status: Acute (9) Severe sepsis with acute organ dysfunction Code(s): A41.9 - SEPSIS, UNSPECIFIED ORGANISM; R65.20 - SEVERE SEPSIS WITHOUT SEPTIC SHOCK Status: Acute (10) UTI (urinary tract infection) Status: Acute Qualifiers: Urinary tract infection type: catheter-associated UTI Indwelling urinary catheter type: indwelling urethral catheter Encounter type: initial encounter Qualified Code(s): T83.511A - Infection and inflammatory reaction due to indwelling urethral catheter, initial encounter; N39.0 - Urinary tract infection , site not specified (11) Urinary retention due to benign prostatic hyperplasia Code(s): N28.89 - OTHER SPECIFIED DISORDERS OF KIDNEY AND URETER; R33.8 - OTHER RETENTION OF URINE Status: Chronic - Plan Plan: medical unit nephrology consultation, recommendations appreciated oral antibiotics for urinary tract infection, renally dose antiviral therapy for acute acute flu a positive continue other home medications as able physical therapy and occupational therapy evaluation and treatment patient's renal function has improved dramatically from a creatinine 3.6 on arrival down to 1.6 on 04/19 hypernatremia has also improved with sodium 149 down to 142 on 04/19 G.I. prophylaxis DVT prophylaxis Disposition: at this point the patient is stable for lower level of care I've discuss the case with case management and the patient's daughter. Patient's daughter wishes that he will continue to clinically improve and he may be recommended safe for discharge home. At this point the patient has worked with physical therapy and occupational therapy who have recommended custodial facility placement versus inpatient rehab.
[2019-04-21] MEDS: Dextrose 5% in Water 1,000 ML IV SCH (05:43)
[2019-04-21] MEDS: Heparin 5,000 UNITS/ML VIAL SC SCH ×2 (09:24→20:30)
--- NOTE | 2019-04-21 14:56 | PDOC.HOSPP ---
- Subjective Subjective: Seen and examined. Clinically improving on maximal medical therapy. No fever sense 04/17/2019. Responding to current antibiotics antiviral therapy. Patient is no longer considered infectious and droplet precautions can be discontinued. Encouraged oral intake and oral intake of fluids, will discontinue IV fluids. With the patient's daughter at bedside I again emphasis that the limiting step to going home at this point is his physical strength and he needs to work with physical therapy and occupational therapy as able. Patient has been recommended safe for discharge by physical therapy and occupational therapy to a lower level of care was [facility]pc facility, though the patient's family are optimistic that they might be able to take them home if his physical strength improves. - Objective Vital Signs & Weight: Vital Signs (12 hours) Temp Pulse Resp BP Pulse Ox 04/21/19 08:00 95 04/21/19 07:27 98.7 F 80 17 112/76 95 Weight Weight 180 lb 1.6 oz I&O: 04/20/19 04/21/19 04/22/19 06:59 06:59 06:59 Intake Total 1010 1000 240 Output Total 700 600 Balance 310 400 240 Result Diagrams: 04/19/19 05:34 04/19/19 05:34 Radiology Reviewed by me: Yes Hospitalist ROS - Review of Systems All other systems reviewed; all pertinent +/- noted in HPI/Subj - Medication Medications: Active Medications Generic Name Dose Route Start Last Admin Trade Name Freq PRN Reason Stop Dose Admin Acetaminophen 650 mg 04/16/19 19:59 04/18/19 20:35 Tylenol PO 650 mg Q6H PRN Administration Headache/Fever/Mild Pain (1-3) Heparin Sodium (Porcine) 5,000 units 04/16/19 21:00 04/21/19 09:24 Heparin SC 5,000 units BID DILCIA Administration Levofloxacin 250 mg 04/19/19 06:00 04/21/19 05:43 Levaquin PO 250 mg 0600 DILCIA Administration Oseltamivir Phosphate 30 mg 04/18/19 15:00 04/20/19 14:57 Tamiflu PO 30 mg 1500 DILCIA Administration Sodium Chloride 10 ml 04/17/19 09:00 04/21/19 09:24 Flush - Normal Saline IVF Not Given Q12HR DILCIA - Exam General Appearance: NAD Eye: PERRL, anicteric sclera ENT: normocephalic atraumatic Neck: supple, symmetric Heart: no murmur, no gallops, no rubs Respiratory: CTAB, no wheezes, no rales, no ronchi, no tachypnea Gastrointestinal: soft, non-tender, no guarding, no rigidity Extremities: no edema Skin: no lesions, no rashes Neurological: cranial nerve grossly intact, no focal deficits Musculoskeletal: generalized weakness, diffuse muscle atrophy Psychiatric: normal behavior, oriented to person, flat affect Hosp A/P (1) Anemia Code(s): D64.9 - ANEMIA, UNSPECIFIED Status: Acute (2) Complicated UTI (urinary tract infection) Code(s): N39.0 - URINARY TRACT INFECTION, SITE NOT SPECIFIED Status: Acute (3) Encephalopathy Code(s): G93.40 - ENCEPHALOPATHY, UNSPECIFIED Status: Acute (4) Hypernatremia Code(s): E87.0 - HYPEROSMOLALITY AND HYPERNATREMIA Status: Acute (5) Influenza Code(s): J11.1 - FLU DUE TO UNIDENTIFIED INFLUENZA VIRUS W OTH RESP MANIFEST Status: Acute (6) MIRANDA (acute kidney injury) Code(s): N17.9 - ACUTE KIDNEY FAILURE, UNSPECIFIED Status: Acute (7) MIRANDA (acute kidney injury) Code(s): N17.9 - ACUTE KIDNEY FAILURE, UNSPECIFIED Status: Acute (8) CKD (chronic kidney disease) stage 3, GFR 30-59 ml/min Code(s): N18.3 - CHRONIC KIDNEY DISEASE, STAGE 3 (MODERATE) Status: Acute (9) Severe sepsis with acute organ dysfunction Code(s): A41.9 - SEPSIS, UNSPECIFIED ORGANISM; R65.20 - SEVERE SEPSIS WITHOUT SEPTIC SHOCK Status: Acute (10) UTI (urinary tract infection) Status: Acute Qualifiers: Urinary tract infection type: catheter-associated UTI Indwelling urinary catheter type: indwelling urethral catheter Encounter type: initial encounter Qualified Code(s): T83.511A - Infection and inflammatory reaction due to indwelling urethral catheter, initial encounter; N39.0 - Urinary tract infection , site not specified (11) Urinary retention due to benign prostatic hyperplasia Code(s): N28.89 - OTHER SPECIFIED DISORDERS OF KIDNEY AND URETER; R33.8 - OTHER RETENTION OF URINE Status: Chronic - Plan Plan: medical unit nephrology consultation, recommendations appreciated oral antibiotics for urinary tract infection, renally dose antiviral therapy for acute acute flu a positive continue other home medications as able physical therapy and occupational therapy evaluation and treatment patient's renal function has improved dramatically from a creatinine 3.6 on arrival down to 1.6 on 04/19 hypernatremia has also improved with sodium 149 down to 142 on 04/19 D/c IV fluids D/c droplet precautions G.I. prophylaxis DVT prophylaxis Disposition: at this point the patient is stable for lower level of care I've discuss the case with case management and the patient's daughter. Patient's daughter wishes that he will continue to clinically improve and he may be recommended safe for discharge home. At this point the patient has worked with physical therapy and occupational therapy who have recommended fpc facility placement versus inpatient rehab.
[2019-04-21] MEDS: Oseltamivir 6 MG/ML ORAL SUSP PO SCH (15:00)
[2019-04-22] MEDS: Heparin 5,000 UNITS/ML VIAL SC SCH ×2 (08:39→21:10)
--- NOTE | 2019-04-22 10:19 | PDOC.HOSPP ---
- Subjective Subjective: Seen and examined. Patient doing well this a.m. Breathing comfortably on room air. Patient did not have much of an appetite this morning and did not eat his breakfast well. Patient son at bedside, he states that he now understands the severity of his dad's weakness and is interested in rehabilitation unit placement. Will discuss with case management again and plan for rehabilitation versus halfway facility placement. - Objective Vital Signs & Weight: Vital Signs (12 hours) Temp Pulse Resp BP Pulse Ox 04/22/19 07:25 99.1 F 66 17 99/66 95 Weight Weight 180 lb 1.6 oz I&O: 04/21/19 04/22/19 04/23/19 06:59 06:59 06:59 Intake Total 1000 720 240 Output Total 600 550 Balance 400 170 240 Result Diagrams: 04/19/19 05:34 04/19/19 05:34 Hospitalist ROS - Review of Systems All other systems reviewed; all pertinent +/- noted in HPI/Subj - Medication Medications: Active Medications Generic Name Dose Route Start Last Admin Trade Name Freq PRN Reason Stop Dose Admin Acetaminophen 650 mg 04/16/19 19:59 04/18/19 20:35 Tylenol PO 650 mg Q6H PRN Administration Headache/Fever/Mild Pain (1-3) Heparin Sodium (Porcine) 5,000 units 04/16/19 21:00 04/22/19 08:39 Heparin SC 5,000 units BID DILCIA Administration Levofloxacin 250 mg 04/19/19 06:00 04/22/19 05:24 Levaquin PO 250 mg 0600 DILCIA Administration Oseltamivir Phosphate 30 mg 04/18/19 15:00 04/21/19 15:00 Tamiflu PO 30 mg 1500 DILCIA Administration Sodium Chloride 10 ml 04/17/19 09:00 04/21/19 20:31 Flush - Normal Saline IVF 10 ml Q12HR DILCIA Administration - Exam General Appearance: NAD Eye: anicteric sclera ENT: normocephalic atraumatic, moist mucosa Neck: supple, symmetric, no lymphadenopathy Heart: no murmur, no gallops, no rubs Respiratory: CTAB, no wheezes, no rales, no ronchi Gastrointestinal: soft, non-tender, no guarding, no rigidity Gastrointestinal - other findings: : chronic quesada in place Extremities: 1+ LE edema Skin: no lesions, no rashes Neurological: cranial nerve grossly intact, no focal deficits Musculoskeletal: generalized weakness, diffuse muscle atrophy Psychiatric: oriented to person, flat affect Hosp A/P (1) Anemia Code(s): D64.9 - ANEMIA, UNSPECIFIED Status: Acute (2) Complicated UTI (urinary tract infection) Code(s): N39.0 - URINARY TRACT INFECTION, SITE NOT SPECIFIED Status: Acute (3) Encephalopathy Code(s): G93.40 - ENCEPHALOPATHY, UNSPECIFIED Status: Acute (4) Hypernatremia Code(s): E87.0 - HYPEROSMOLALITY AND HYPERNATREMIA Status: Acute (5) Influenza Code(s): J11.1 - FLU DUE TO UNIDENTIFIED INFLUENZA VIRUS W OTH RESP MANIFEST Status: Acute (6) MIRANDA (acute kidney injury) Code(s): N17.9 - ACUTE KIDNEY FAILURE, UNSPECIFIED Status: Acute (7) MIRANDA (acute kidney injury) Code(s): N17.9 - ACUTE KIDNEY FAILURE, UNSPECIFIED Status: Acute (8) CKD (chronic kidney disease) stage 3, GFR 30-59 ml/min Code(s): N18.3 - CHRONIC KIDNEY DISEASE, STAGE 3 (MODERATE) Status: Acute (9) Severe sepsis with acute organ dysfunction Code(s): A41.9 - SEPSIS, UNSPECIFIED ORGANISM; R65.20 - SEVERE SEPSIS WITHOUT SEPTIC SHOCK Status: Acute (10) UTI (urinary tract infection) Status: Acute Qualifiers: Urinary tract infection type: catheter-associated UTI Indwelling urinary catheter type: indwelling urethral catheter Encounter type: initial encounter Qualified Code(s): T83.511A - Infection and inflammatory reaction due to indwelling urethral catheter, initial encounter; N39.0 - Urinary tract infection , site not specified (11) Urinary retention due to benign prostatic hyperplasia Code(s): N28.89 - OTHER SPECIFIED DISORDERS OF KIDNEY AND URETER; R33.8 - OTHER RETENTION OF URINE Status: Chronic - Plan Plan: medical unit nephrology consultation, recommendations appreciated oral antibiotics for urinary tract infection, renally dose antiviral therapy for acute acute flu a positive continue other home medications as able physical therapy and occupational therapy evaluation and treatment patient's renal function has improved dramatically from a creatinine 3.6 on arrival down to 1.6 on 04/19 hypernatremia has also improved with sodium 149 down to 142 on 04/19 D/c IV fluids D/c droplet precautions G.I. prophylaxis DVT prophylaxis Disposition: At this point the patient is stable for lower level of care I've discuss the case with Case Management, patient's son and daughter. At this point the patient has worked with physical therapy and occupational therapy who have recommended halfway facility placement versus inpatient rehab. Patient's son interested in rehab vs SNF placement.
[2019-04-22] MEDS: Oseltamivir 6 MG/ML ORAL SUSP PO SCH (16:56)
[2019-04-23] MEDS: Heparin 5,000 UNITS/ML VIAL SC SCH ×2 (08:57→20:03)
[2019-04-23 10:29] LABS: Hemoglobin 8.6 g/dL (14.0-18.0); Mean Corpuscular HGB CONC 31.6 g/dL (32.0-36.0); Mean Corpuscular Hemoglobin 28.7 pg (27.0-31.0); Mean Corpuscular Volume 90.9 fL (78.0-98.0); Mean Platelet Volume 7.8 fL (7.4-10.4); Platelet Count 347 thou/uL (130-400); RBC Distribution Width 12.8 % (11.5-14.5); Red Blood Cell (RBC) Count 2.99 mill/uL (4.70-6.10); White Blood Cell (WBC) Count 14.1 thou/uL (4.8-10.8)
[2019-04-23 10:39] LABS: Albumin 2.5 g/dL (3.4-4.8); Anion Gap 14 mmol/L (10-20); BUN (Urea Nitrogen) 23 mg/dL (8.4-25.7); BUN/Creatinine Ratio 17.29; Calc. Creatinine Clearance 48 mL/min (70-130); Calcium 8.2 mg/dL (7.8-10.44); Carbon Dioxide 21 mmol/L (23-31); Chloride 108 mmol/L (98-107); Estimated GFR-MDRD 62; Glucose 143 mg/dL (83-110); Phosphorus 2.5 mg/dL (2.3-4.7); Potassium 3.8 mmol/L (3.5-5.1); Sodium 139 mmol/L (136-145)
[2019-04-23 10:41] LABS: Band 4 % (5-11); Lymphocytes 6 % (21-51); MDiff Complete? YES; Monocytes 2 % (0-10); Neutrophil 88 % (42-75); Platelet Morphology Comment Appears Adequate; Polychromasia SLIGHT = 2-3 cells (100X) (0-2/hpf)
[2019-04-23] MEDS: Oseltamivir 6 MG/ML ORAL SUSP PO SCH (15:39)
--- NOTE | 2019-04-23 18:53 | PDOC.HOSPP ---
- Subjective Encounter Date: 04/23/19 Encounter Time: 12:51 Subjective: 84 y/o male with BPH and prostate ca with chronic indwelling catheter, dementia and others admitted with acute mental status changes of decreased speech and confusion. found to have inflenza and UTI. Started on antimicrobial with improvement. - Objective Vital Signs & Weight: Vital Signs (12 hours) Temp Pulse Resp BP Pulse Ox 04/23/19 08:00 96 04/23/19 07:30 98.7 F 78 20 102/69 96 Weight Weight 180 lb 1.6 oz I&O: 04/22/19 04/23/19 04/24/19 06:59 06:59 06:59 Intake Total 720 720 640 Output Total 550 1050 Balance 170 -330 640 Result Diagrams: 04/23/19 10:09 04/23/19 10:09 Hospitalist ROS - Medication Medications: Active Medications Generic Name Dose Route Start Last Admin Trade Name Freq PRN Reason Stop Dose Admin Acetaminophen 650 mg 04/16/19 19:59 04/18/19 20:35 Tylenol PO 650 mg Q6H PRN Administration Headache/Fever/Mild Pain (1-3) Heparin Sodium (Porcine) 5,000 units 04/16/19 21:00 04/23/19 08:57 Heparin SC 5,000 units BID DILCIA Administration Levofloxacin 250 mg 04/19/19 06:00 04/23/19 05:31 Levaquin PO 250 mg 0600 DILCIA Administration Oseltamivir Phosphate 30 mg 04/18/19 15:00 04/23/19 15:39 Tamiflu PO 30 mg 1500 DILCIA Administration Sodium Chloride 10 ml 04/17/19 09:00 04/23/19 08:57 Flush - Normal Saline IVF 10 ml Q12HR DILCIA Administration - Exam General Appearance: awake alert Eye: anicteric sclera ENT: normocephalic atraumatic, moist mucosa Neck: symmetric, no JVD Heart: RRR Respiratory: no wheezes, no rales, no ronchi, normal chest expansion Gastrointestinal: soft, non-tender, non-distended, normal bowel sounds Gastrointestinal - other findings: quesada cathetet in place Extremities: no cyanosis, no edema Neurological: cranial nerve grossly intact, no new deficit Musculoskeletal: generalized weakness Hosp A/P (1) Acute metabolic encephalopathy Code(s): G93.41 - METABOLIC ENCEPHALOPATHY Status: Acute (2) Complicated UTI (urinary tract infection) Code(s): N39.0 - URINARY TRACT INFECTION, SITE NOT SPECIFIED Status: Acute (3) CKD (chronic kidney disease) stage 3, GFR 30-59 ml/min Code(s): N18.3 - CHRONIC KIDNEY DISEASE, STAGE 3 (MODERATE) Status: Acute (4) Sepsis Code(s): A41.9 - SEPSIS, UNSPECIFIED ORGANISM Status: Acute Qualifiers: Sepsis type: sepsis due to unspecified organism Sepsis acute organ dysfunction status: with acute organ dysfunction Severe sepsis acute organ dysfunction type: acute renal failure Severe sepsis shock status: without septic shock (5) Physical deconditioning Code(s): R53.81 - OTHER MALAISE Status: Acute - Plan Continue antimicrobials. PT/OT to contin ue. follow renal function. Awaiting placement
[2019-04-24 06:58] LABS: Albumin 2.5 g/dL (3.4-4.8); Anion Gap 13 mmol/L (10-20); BUN (Urea Nitrogen) 18 mg/dL (8.4-25.7); BUN/Creatinine Ratio 14.52; Calc. Creatinine Clearance 51 mL/min (70-130); Calcium 8.4 mg/dL (7.8-10.44); Carbon Dioxide 22 mmol/L (23-31); Chloride 108 mmol/L (98-107); Estimated GFR-MDRD 67; Glucose 112 mg/dL (83-110); Phosphorus 2.4 mg/dL (2.3-4.7); Sodium 139 mmol/L (136-145)
[2019-04-24] MEDS: Heparin 5,000 UNITS/ML VIAL SC SCH (08:34)
[2019-04-24] MEDS: Oseltamivir 6 MG/ML ORAL SUSP PO SCH (15:17)
[2019-04-24 17:35] VITALS: BP 122/74; TEMP 98.4
--- NOTE | 2019-04-24 18:58 | DIS ---
DATE OF ADMISSION: 04/16/2019 DATE OF DISCHARGE: 04/24/2019 DISCHARGE DIAGNOSES: 1. Urinary tract infection. 2. Influenza. 3. Change in mental status. CHRONIC DIAGNOSES: 1. Prostate cancer, status post suprapubic catheter. 2. Hypertension. 3. BPH. 4. Early dementia. HISTORY OF PRESENT ILLNESS AND HOSPITAL COURSE: This is an 84-year-old male patient who was sent for change in mental status. It was reported that the past 10 days, he has not been himself. He has been having urge to urinate and some confusion such as not remembering how to use a seat belt. He does have a suprapubic catheter that was changed out on a monthly basis. He follows with Dr. Wilson's office. There was no documented fever, chills, or nausea, vomiting, or diarrhea. In the emergency room, he was found to be febrile with a temperature of 101.2. The patient was admitted with a diagnosis of sepsis, presumed urinary tract infection and he was positive for influenza, he was started on meropenem. Also, he was started on Tamiflu, his blood work did reveal acute kidney injury. He was noted to be on fluoroquinolones, also Bactrim and ANDIA inhibitors and diuretics with poorly p.o. intake. It was thought that this was because of acute kidney injury. His NADIA inhibitors and Bactrim were stopped. He was hydrated, he was found to be hypernatremic, he was started on D5W. He was seen by Nephrology. His urine culture was mainly showing contamination. He was transitioned at some point to Levaquin p.o. He was noted to have an outpatient urine culture positive for E coli sensitive to Levaquin. Day-by-day, he showed improvement and his mental status came back to baseline. He was seen by Physical Therapy and Occupational Therapy, and recommendation is to for him to go to detention facility. His creatinine in improved dramatically from 3.6 to 1.6. For the past 24 hours, he has been afebrile and doing well. His blood work did reveal drop in his hemoglobin, but not too far from where he has been, so my recommendation is to recheck his hemoglobin in approximately 5 days. His hemoglobin currently is around 9. There is no evidence of bleeding in his urine or from his rectum. Also, his blood pressure has been within normal range. At home, he was on lisinopril which was a contributory factor to his renal insufficiency. I would continue withholding this medication after discharge. His blood pressure should be monitored in the detention facility and resuming this medication will be reassessed. I did speak with his daughter and I did review his home medications. It seems that he takes Bactrim whenever he feels cramping in his bladder. Since he will be on Levaquin for another 7 days, we will withhold Bactrim to prevent any adverse reaction more specifically to his kidney function. The patient should follow up with primary care physician in a week. TIME SPENT: More than 30 minutes was spent to discharge the patient. Job ID: [id number]
== END 2019-04-24 18:39 | DRG 871 ==
LOC: ERS 14:06 → T4-A 21:25
PROVIDERS: ADMIT Family Medicine; ATTEND Family Medicine
DX: A41.9 Sepsis, unspecified organism (principal); N17.0 Acute kidney failure with tubular necrosis; G93.41 Metabolic encephalopathy; T83.511A Infection and inflammatory reaction due to indwelling urethral catheter, initial encounter; N17.9 Acute kidney failure, unspecified; E87.0 Hyperosmolality and hypernatremia; E87.2 Acidosis; N39.0 Urinary tract infection, site not specified; R65.20 Severe sepsis without septic shock; C61 Malignant neoplasm of prostate; F03.90 Unspecified dementia, unspecified severity, without behavioral disturbance, psychotic disturbance, mood disturbance, and anxiety; I12.9 Hypertensive chronic kidney disease with stage 1 through stage 4 chronic kidney disease, or unspecified chronic kidney disease; D63.1 Anemia in chronic kidney disease; N18.3 Chronic kidney disease, stage 3 (moderate); N40.1 Benign prostatic hyperplasia with lower urinary tract symptoms; J11.1 Influenza due to unidentified influenza virus with other respiratory manifestations
CPT/HCPCS: 36415; 70450; 71045; 76770; 80048; 80053; 80069; 81003; 81015; 82570; 83605; 84300; 85025; 87040; 87077; 87086; 87186; 87804; 96361; 96365; 96366; 96367; J1644; J2185; J3370; J3490; J7070

== ENCOUNTER 2019-04-25 06:17 | Inpatient (IN) | payer MEDICARE ==
[2019-04-25 06:49] LABS: Hemoglobin 10.3 g/dL (14.0-18.0); Mean Corpuscular HGB CONC 30.3 g/dL (32.0-36.0); Mean Corpuscular Hemoglobin 28.4 pg (27.0-31.0); Mean Corpuscular Volume 93.8 fL (78.0-98.0); Mean Platelet Volume 7.6 fL (7.4-10.4); Platelet Count 366 thou/uL (130-400); Red Blood Cell (RBC) Count 3.61 mill/uL (4.70-6.10); White Blood Cell (WBC) Count 21.9 thou/uL (4.8-10.8)
[2019-04-25 06:53] LABS: INR-International Normal Ratio 1.3; PTT 28.9 SEC (22.9-36.1); Prothrombin Time 16.2 SEC (12.0-14.7)
[2019-04-25 07:02] LABS: ALT (SGPT) 38 U/L (8-55); AST (SGOT) 112 U/L (5-34); Albumin 2.8 g/dL (3.4-4.8); Alkaline Phosphatase 98 U/L (40-110); Anion Gap 26 mmol/L (10-20); BUN (Urea Nitrogen) 19 mg/dL (8.4-25.7); Calc. Creatinine Clearance 0 mL/min (70-130); Carbon Dioxide 11 mmol/L (23-31); Chloride 107 mmol/L (98-107); Estimated GFR-MDRD 44; Globulin 4.3 g/dL (2.4-3.5); Glucose 157 mg/dL (83-110); Potassium 4.7 mmol/L (3.5-5.1); Protein, Total 7.1 g/dL (5.8-8.1); Sodium 139 mmol/L (136-145)
[2019-04-25] MEDS ORDERED: cefTRIAXone\\ROCEPHIN 1 GM VIAL ONE ×2 (07:05→07:22)
[2019-04-25 07:09] LABS: Troponin I 18.215 ng/mL (< 0.028)
[2019-04-25 07:30] LABS: Band 9 % (5-11); Lymphocytes 14 % (21-51); MDiff Complete? YES; Metamyelocyte 2 % (0-0); Monocytes 2 % (0-10); Myelocyte 6 % (0-0); Neutrophil 67 % (42-75); Nucleated RBC 1 % (0); Platelet Morphology Comment Appears Adequate; Polychromasia SLIGHT = 2-3 cells (100X) (0-2/hpf)
--- NOTE | 2019-04-25 07:41 | CT ---
PRELIMINARY REPORT/[facility]/EMERGENCY AFTER HOURS PROCEDURE Receipt of this report by the clinical staff was confirmed with Jazzmine Aguilar MD by Naima Her on Apr 25, 2019 06:31:00 [employer]. Addendum electronically signed by Joanna Her on April 25, 2019 6:32:08 [address] Head CT, axial images History: Slurred speech Comparison: 04/16/19 Findings: The ventricles and sulci are prominent due to age related atrophy and involutional changes. Areas of nonspecific white matter low density are most compatible with manifestations of chronic micr ovascular disease. There is no acute intracranial hemorrhage, edema, mass effect or midline shift. [place]-white differentiation is normal. No extra-axial collections or space occupying lesions are seen. The visualized paranasal sinuses are clear. The calvarium is intact. Impression: No acute intracranial abnormality. Chronic age related senescent changes. ELECTRONICALLY SIGNED BY: Krishan Becker MD Apr 25, 2019 6:30:42 AM [employer] This report is intended for review by the ordering physician only, in accordance of law. If you recei ve this report in error, please call [facility] at [phone]. FINAL REPORT HEAD CT WITHOUT CONTRAST: Date: 04/25/2019 COMPARISON: 04/16/2019 HISTORY: Stroke alert, slurred speech FINDINGS: I agree with the preliminary report. The visualized paranasal sinuses and mastoid air cells are grossly unremarkable. No acute osseous abnormality. Mild diffuse cerebral volume loss. No intracranial hemorrhage, midline shift, or mass effect. IMPRESSION: No intracranial hemorrhage. Code QA Transcribed Date/Time: 04/25/2019 8:03 AM
[2019-04-25] MEDS ORDERED: Aspirin 300 MG Suppository ONE (07:54)
--- NOTE | 2019-04-25 08:12 | CT ---
PRELIMINARY REPORT/[facility]/EMERGENCY AFTER HOURS PROCEDURE Receipt of this report by the clinical staff was confirmed with Jazzmine Aguilar by Toña Elliott on Apr 25, 2019 06:58:00 [employer]. Addendum electronically signed by Mela Elliott on April 25, 2019 6:59:22 AM DIRECT[employer] Head and neck CT angiogram History: Stroke protocol. Right-sided weakness Comparison: None Findings: Large hyperdense complex pericardial effusion is incompletely imaged. Partially visualized loculated left pleural effusion with consolidative changes and atelectasis in th e posterior left lung. Unremarkable aortic arch. Unremarkable bilateral common carotid arteries. Mild calcified plaque causing less than 50% luminal stenosis noted at the left carotid bulb Mild calcified plaque at the right carotid bulb extending into the right ICA origin causes up to 50% luminal stenosis. Mild short segment calcified plaque in the proximal cervical right ICA causes less than 50% luminal s tenosis. Both cervical ICAs are otherwise unremarkable. Patent dominant right vertebral artery. 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 Moderate short segment stenosis within the mid basilar artery. Unremarkable bilateral ACAs. The A2 segments arise from a dominant left A1 segment on a congenital b asis. 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 There is severe short segment right mid ANALYTICAL TECH stenosis. Unremarkable bilateral MCAs. No aneurysm or vascular malformation. Impression: Mild calcified plaque causing up to 50% luminal stenosis at the right carotid bulb and right ICA orig in. Short segment moderate to severe stenosis within the distal left vertebral artery and mid basilar art jazmin. Short segment severe right mid ANALYTICAL TECH stenosis. Partially visualized large complex hyperdense pericardial effusion. CT appearance suggests hemoperic ardium although the etiology is unclear. Dedicated contrast enhanced chest CT recommended if additional characterization is needed. ELECTRONICALLY SIGNED BY: Krishan Becker MD Apr 25, 2019 6:56:31 AM [employer] This report is intended for review by the ordering physician only, in accordance of law. If you recei ve this report in error, please call [facility] at [phone]. FINAL REPORT CT angiogram head CT angiogram neck: 04/25/2019 HISTORY: Slurred speech FINDINGS: Axial CT imaging through the head and neck at 1.25 mm intervals with IV contrast and mcnulty l/sagittal 3-D reformatted imaging provided. Within the partially imaged superior mediastinum there is abnormal hyperdense fluid within the prevas cular space abutting the ascending aorta and the main pulmonary arteries suggesting a complex/hyperdense pericardial effusion and/or mediastinal hematoma. The retroantral and the parapharyngeal fat appears clear bilaterally. The parotid glands and the subm andibular glands appear unremarkable. Limited assessment of the aerodigestive tract demonstrates no abnormality. No lymphadenopathy is evident within the neck. The origin of the innominate artery, right subclavian artery, bilateral common carotid arteries, and left subclavian artery demonstrate no acute abnormality. The common carotid artery is tortuous bilaterally. On the basis of NASCET criteria, there is no hemodynamically significant stenosis involv ing the internal carotid artery or the common carotid artery on either side. Scattered areas of mild atherosclerotic calcification noted within the proximal ICA bilaterally. The left vertebral artery is hypoplastic and appears to emanate directly from the aortic arch. There is severe stenosis involving the distal aspect of the diminutive left vertebral artery which may end in PICA. The right vertebral artery is dominant and patent. There is a focal area of moderate stenosis within the midportion of the basilar artery. There is no o cclusion of the arterial structures of the posterior circulation. Bilateral posterior communicating arteries are noted. There is stenosis involving the posterior cerebral artery proximally on the right . There is atherosclerotic calcification involving the cavernous carotid arteries bilaterally. The A1 segment on the right is aplastic. Bilateral anterior cerebral arteries appear patent. Unremark able anterior communicating artery. The M1 segment and the MCA bifurcation demonstrates no acute findings on either side. The distal MCA branches are grossly unremarkable. Osseous structures demonst rate no acute findings. IMPRESSION: Abnormal hyperdense fluid within the superior mediastinum for which CT angiogram of the c hest using dissection protocol advised. Multifocal atherosclerotic disease within the head and neck as above. Code QA Transcribed Date/Time: 04/25/2019 8:47 AM
--- NOTE | 2019-04-25 10:06 | RAD ---
CHEST 1 VIEW: Date: 04/25/19 HISTORY: Stroke alert. Right-sided weakness. Slurred speech. COMPARISON: 04/16/19. FINDINGS: Cardiac silhouette has markedly increased in size, as well as some increase in transverse dimension o f the upper mediastinum, as well as space between the ectatic aorta and trachea. There is bilateral v ascular congestion and some left pleural effusion, and possible small right pleural effusion. IMPRESSION: Prominent increase in size of the cardiac silhouette, as well as some widening and increased density of the upper mediastinum, raising concern for pericardial fluid and/or mediastinal hematoma. Vascular congestion. Developing left pleural effusion with probable small right pleural effusion. Continue sh ort-term follow-up. POS: [facility]
--- NOTE | 2019-04-25 10:11 | PDOC.EVN ---
Event Note - Event Note Event Note: called cardiology and CV surgery about pt's pericardial effusion. Cardiology wanted me to call cv surgery. pt's trop is 18 and lactic acid of 9. I was informed that CV surgery will see the pt in 2-3 hours. Pt's vitals are stable. will get stat echo.
[2019-04-25] MEDS ORDERED: Iopamidol 370 76% 100 ML VIAL ONE ×2 (10:56→10:58)
[2019-04-25] MEDS ORDERED: Cefepime 1 GM in Sodium Chloride 0.9% 100 ML IVPB SCH (11:00)
--- NOTE | 2019-04-25 11:10 | CT ---
CTA THORAX WITH CONTRAST CTA ABDOMEN WITH CONTRAST: 04/25/2019 (Computed Tomographic Angiography, chest (noncoronary) with contrast material, and image post process ing) (Computed Tomographic Angiography, abdomen with contrast material, and image post processing) HISTORY: An 84-year-old male with chest pain, rule out aortic dissection. TECHNIQUE: IV injection of iodinated contrast: Isovue-370 60 mL. Arterial phase bolus chasing technique. Scan acquisition from top of top of aortic arch to iliac crests. 3D coronal and sagittal MIP reconstructions. FINDINGS: There is a moderate sized pericardial effusion. Small bilateral pleural effusions, left greater than right. Deep invagination and indentation of the trachea focally at the T1 level, by an air-filled, di lated portion of the esophagus, resulting in approximately 50% narrowing of the tracheal luminal cros s-sectional area (axial image 14 of 202, series 2). Passive atelectasis adjacent to the left pleural effusion, involving the left lower lobe and the posterior segment of the left upper lobe. No pulmonar y alveolar edema. Heavy atherosclerotic calcification of the left main and LAD. Ectasia and tortuosit y of the thoracic aorta and abdominal aorta. No intimal flap within the abdominal aortic lumen identi fied. A 4 x 3.6 cm fusiform infrarenal abdominal aortic aneurysm with chronic mural thrombus, at the L3-L4 level. Atherosclerotic irregularity of entire aorta wall. No central pulmonary thromboembolism within the pulmonic trunk or left and right main pulmonary arteries. Pulmonary artery branch arteries not optimally opacified to evaluate for PE. Very striated nephrogram diffusely bilaterally throughout both kidneys. Numerous bilateral small and medium sized renal parenchymal cysts throughout the upper, mid and lower poles. No high grade hydrone phrosis. Excreted contrast material within the bilateral renal calices from CT angiogram head perform ed earlier this morning. Within the limitations of an arterial-phase only scan, no obvious major abno rmality identified involving the liver, pancreas, right adrenal or spleen. Diffuse nonspecific enlarg ement of the left adrenal gland. No small bowel dilation visualized. No pneumoperitoneum visualized. No free fluid visualized. The pelvis is not included on the scan. No high grade compression fracture of the thoracic or lumbar spine. Ectasia, tortuosity and severe atherosclerosis of the bilateral comm on iliac arteries. 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 On the bottom-most axial image (202 of 202 of series 2), the superior edge of structure with mural th ickening and gas-filled lumen is partially imaged. It is uncertain whether this represents severely t hickened barr of urinary bladder or that of an abnormal bowel loop. IMPRESSION: 1. No aortic intimal dissection identified. 2. Atherosclerosis, ectasia and tortuosity of the entire aorta. 3. A 4 cm fusiform infrarenal abdominal aortic aneurysm with chronic mural thrombus. 4. 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 5. Moderate sized pericardial effusion. 6. Small bilateral pleural effusions, left greater than right. 7. Coronary atherosclerosis due to calcified coronary lesion. 8. Very striated nephrogram bilaterally. The differential diagnosis for this is acute bilateral pyelo nephritis, acute renal tubular obstruction, acute tubular necrosis, and hypotension. 9. Large number of bilateral renal cysts. 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 11.Possible very abnormal urinary bladder, only the very superior edge of which is imaged. Consider pelvic CT. jn[] POS: [facility]
[2019-04-25 11:32] LABS: Lactic Acid 6.4 mmol/L (0.5-2.2)
[2019-04-25 11:39] LABS: Troponin I 21.886 ng/mL (< 0.028)
[2019-04-25 12:49] LABS: Bilirubin Negative (Negative); Blood, Urine Large (Negative); Glucose, Urine (Dipstick) 100 mg/dL (Negative); Leukocyte Trace (Negative); Nitrite Negative (Negative); Protein, Urine (Dipstick) > or equal to 300 mg/dL (Neg-Trace)
[2019-04-25 12:52] LABS: Clarity Hazy (Clear)
[2019-04-25 12:57] LABS: Bacteria/HPF 4+ HPF (None Seen); RBC/HPF 21-50 HPF (0-3)
[2019-04-25] MEDS: Sodium Chloride 0.9% 1,000 ML IV SCH (13:03)
[2019-04-25 13:21] VITALS: BMI 22.8
--- NOTE | 2019-04-25 13:44 | CON ---
DATE OF CONSULTATION: 04/25/2019 CONSULTING PHYSICIAN: Emergency Room. REASON FOR CONSULTATION: Abnormal CT of the chest. HISTORY OF PRESENT ILLNESS: The patient is an 84-year-old male, who was brought into the hospital with left-sided facial droop from rehab. He was thought to be having a stroke. He has just been in the hospital for a flu-related illness. He was discharged on 04/24 to the rehab facility. His discharge diagnoses include urinary tract infection, influenza, and altered mental status. Aside from his facial droop, he feels well and has no complaints. He had a battery test done in the emergency room for reasons, which are completely clear to me. One of them included a CT of the chest, which showed a fairly substantial pericardial effusion with an abnormality in the tracheal region in the question of mediastinal air. A CT of his cervical of Fernandez demonstrates several stenotic areas and question of hemopericardium. PAST MEDICAL HISTORY: 1. Hypertension. 2. Prostatic hypertrophy. 3. Prostate cancer. 4. Dementia. 5. Suprapubic catheter placement. 6. Chronic kidney disease. PAST SURGICAL HISTORY: Suprapubic catheter placement. SOCIAL HISTORY: Does not smoke. Does not consume alcohol. ALLERGIES: NONE. MEDICATIONS: Prior to admission; 1. Levaquin. 2. Trospium. REVIEW OF SYSTEMS: Otherwise, negative for the facial droop. PHYSICAL EXAMINATION: VITAL SIGNS: Heart rate in the 80s, blood pressure 140/60, and respiratory rate 18. GENERAL: He is awake and alert and really in no acute distress. HEENT: Pupils are 3 mm and reactive. Sclerae are anicteric. Oropharynx, he can protrude his tongue midline. He cannot smile very well. He has an extensive left-sided facial droop. NECK: No adenopathy or JVD. CARDIAC: Sounds are muffled. LUNGS: Clear to auscultation. ABDOMEN: Soft and nontender. Suprapubic catheter noted. EXTREMITIES: No clubbing, cyanosis, or edema. LABORATORY DATA: White blood cell count 21.9, hematocrit 33.8, and platelet count 366 with 67% neutrophils, 9% bands. INR 1.3. Sodium 139, potassium 4.7, chloride 107, CO2 of 11, BUN 19, creatinine 1.8, and glucose 157. Lactate is 9.5. Troponins 18.2. IMAGING DATA: I reviewed the CT of the chest personally. Of note, the patient has been given empiric antibiotics in the emergency room. ASSESSMENT: 1. Stroke with left-sided facial droop. 2. Pericardial effusion. 3. Question of esophageal abnormality. The patient has some scant mediastinal air along with the dilatation seen in the midportion of his trachea. RECOMMENDATIONS: 1. A CT surgery has been consulted to evaluate the pericardial effusion. 2. Cardiology has been consulted to evaluate for potential IL. 3. If Surgery Radiology feels there is a true esophageal disruption, then the patient will need to be transferred to a Tertiary Center that can deal with that. Job ID: [id number]
[2019-04-25 14:33] LABS: Lactic Acid 5.7 mmol/L (0.5-2.2)
[2019-04-25 14:41] LABS: CKMB 31.4 ng/mL (0-6.6)
[2019-04-25] MEDS ORDERED: CCU Electrolyte Replacement 1 EACH IVPB ONE (15:06)
--- NOTE | 2019-04-25 15:07 | CON ---
DATE OF CONSULTATION: 04/25/2019 INDICATIONS FOR CONSULTATION: An 84-year-old gentleman who presented to emergency room with what appeared to be a left-sided CVA, who also was found to have abnormal EKG changes and abnormal cardiac enzymes. We were asked to see him due to the elevation of the cardiac enzymes. The troponin was elevated at 18. HISTORY OF PRESENT ILLNESS: This very unfortunate 84-year-old gentleman was recently here in the hospital from 04/16 through 04/24 due to urinary tract infection, was treated by antibiotics, was in rehab, and then early this morning, he was found by the staff to be unresponsive. He was brought to the emergency room. At that time, he was unresponsive, but now he seems to be recovering. At that time, he also had left-sided what appeared to be hemiparesis and left facial weakness according to the family, I did not see him earlier, but at this time, he is awake, he is alert, he is oriented, he is speaking to me and answering questions appropriately. He has had no previous history of a CVA. He had no previous history of cardiac disease. His EKG did show Q-waves in the inferior leads with some slight ST-segment elevation also in the inferior leads. 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 He denies any chest pain. He is unaware that he ever had a heart attack. He does have hypertension and history of tobacco abuse, but denied any history of diabetes or hypercholesterolemia. He had no early family history of heart disease. Otherwise, he did smoke in the past, but stopped about 4 or 5 years ago. Otherwise, he seems to be doing quite well. He denies any pain at all in the chest area and has had no shortness of breath. At this time, he is stable in the intensive care unit. Vital signs were stable. On the CT scan early from the emergency room, it was felt he had a pericardial effusion. Echocardiogram shows a very small trivial pericardial effusion. This is not a large effusion. There is no evidence of tamponade. Echocardiogram does show inferior posterior wall hypokinesis or akinesis, compatible with myocardial infarction or probable scar. Otherwise, his ejection fraction is about 40% to 45%. He did have some mitral and tricuspid valve regurgitation, otherwise relatively unremarkable. It is uncertain as to what he was taking for his hypertension. Actually in review of the records, it is documented one of his diagnoses from the rehab facility that he did have a keb-KO-ofupuhr elevation myocardial infarction in 05/2016. He also had a femoral vein DVT. He has also had some problem with some acute kidney failure in 2017, so he does have documentation of an old inferior myocardial infarction. The patient does have a suprapubic catheter. PAST MEDICAL HISTORY: Significant for; 1. A spider bite in 2016. 2. He also had a DVT in 2016, was treated at [facility]. 3. He has had a urinary tract infection as noted on this recent admission. 4. He has a history of prostate cancer. 5. He has a suprapubic catheter, which was placed about a year ago. 6. He has early dementia. SOCIAL HISTORY: He is . He has 7 children. There is no early heart disease. At this time, he no longer smokes. He has no alcohol use. He lives at home with his family, one of his children. FAMILY HISTORY: Noncontributory. ALLERGIES: NONE. PRESENT MEDICATIONS: At this time, he has only been given some antibiotics and some IV fluids. MEDICATIONS PRIOR TO ADMISSION: Include; 1. Rocephin. 2. Aspirin. 3. Vancomycin. 4. Maxipime. Otherwise, I do not see any recent medications. REVIEW OF SYSTEMS: He does have a suprapubic catheter, otherwise a 12-point review of systems is relatively unremarkable except for what is noted in the history of present illness. He has been seen in the past by Physical Therapy to assist with his walking. PHYSICAL EXAMINATION: GENERAL: A well-developed, well-nourished, elderly gentleman. VITAL SIGNS: Blood pressure at this time is 120/91, heart rate is 88 and regular and shows a sinus rhythm, respiratory rate about 13. He has no fevers. HEENT: Head is normocephalic and atraumatic. Carotid pulses are present. I could not hear bruit at this time. CHEST: Clear to auscultation without rales, rhonchi, or wheezing. CARDIOVASCULAR: Regular rate and rhythm. There were no gross murmurs noted. He has a very soft systolic murmur at the apex. ABDOMEN: Soft and nontender. He has suprapubic catheter in place. EXTREMITIES: No clubbing, cyanosis, or edema. Popliteal pulses are difficult to palpate. Pedal pulses, I could not palpate nor could I palpate radial pulses or brachial pulses on this gentleman. NEUROLOGIC: He does appear to be sleepy at times, but is arousable, does answer questions appropriately. SKIN: Warm and dry. LABORATORY DATA: Troponin-I of 18.2, which increased up to 21. WBC is 21.9, hemoglobin is 10.3, hematocrit 33.8, and platelet count 366,000. Sodium is 139, potassium 4.7, BUN was 19, creatinine 1.79, and blood sugar 157. EKG shows a normal sinus rhythm with evidence of an old inferior myocardial infarction with Q-waves. He does have some slight ST-segment elevation with the inferior LA, which could still just be due to some evolving changes of an old inferior myocardial infarction. Please refer with his CT scans, which have been already been documented with the echocardiogram as noted above. IMPRESSION: 1. Probable cerebrovascular accident in this elderly gentleman or transient ischemic attack. He seems to be improving significantly. He has undergone a CT scan, which showed no acute findings. He will be scheduled for an MRI to fully evaluate whether or not he has had a cerebrovascular accident or not. 2. Abnormal cardiac enzymes, which may be due to cerebrovascular accident or maybe due also to re-infarction of the old inferior myocardial infarction area. At this time, he appears to be stable. He has no chest pain or symptoms. We will continue to monitor him. It is quite possible he has suffered another myocardial infarction in the same infarcted area previously, but this is an old infarct. He has essentially akinesis of the inferior posterior barr. We will continue to monitor his cardiac enzymes at this time. I do not believe he is a candidate for cardiac catheterization at this time especially since it is possible that he has had suffered a cerebrovascular accident. He will be given anticoagulation. This could become hemorrhagic stroke. We will continue to monitor him. At this time, he is comfortable. He has no chest pain. EKG does not show any acute problems at this time other than what was already mentioned. We will continue to trend the cardiac enzymes. 3. History of urinary tract infection recently. He has been on antibiotics. We will continue. 4. History of suprapubic catheter. This will need to be monitored by the staff. 5. Elevated WBC, which is higher than when he was discharged from the hospital just yesterday or the day before. 6. History of early dementia. He appears to be stable at this time. 7. We more than happy to continue to follow the patient with you and we will await the results of the MRI. If the patient should develop acute ST-segment changes or develop chest pain, then we can always reconsider about cardiac catheterization. 8. History of chronic kidney disease and appears to have some acute on chronic at this time with a creatinine of 1.79. He has had higher creatinine is in the past, so . We will continue to monitor him. He is obviously at risk for having worsening of renal insufficiency or failure if the patient undergoes contrast with the CT scans, MRIs, or with cardiac catheterization. Job ID: [id number]
--- NOTE | 2019-04-25 15:18 | MRI ---
MRI brain without contrast: 04/25/2019 HISTORY: Clinical concern for stroke altered mental status, abnormal CT angiogram of the head and nec k, slurred speech TECHNIQUE: Multiplanar multisequence MR imaging of the brain is obtained without contrast FINDINGS: Detailed assessment is limited on the basis of persistent head motion artifact. The axial g radient echo imaging demonstrates no evidence for intracranial hemorrhage. Regional bone marrow signal intensity appears within normal limits. There are numerous foci of restricted diffusion consistent with acute infarction bilaterally. This in cludes multiple subcentimeter foci of acute infarction within the posterior and mid frontal lobes, left greater than right, the posterior superior aspect of bilateral parietal lobes, right greater darius n left, and posterior parieto-occipital regions bilaterally. In addition, there is a focus of acute infarction within the cerebellar vermis measuring 6 mm. There are areas of acute infarction within bi lateral cerebellar hemispheres measuring up to 2.1 cm on the right and 1.6 cm on the left. There is partial opacification of bilateral mastoid air cells. There is no midline shift or mass effect. Multifocal periventricular, deep, and subcortical white matter T2 and FLAIR hyperintensity, consisten t with small vessel disease. Moderate diffuse cerebral volume loss. IMPRESSION: There are multiple foci of acute infarction within the bilateral supratentorial and infra tentorial regions as detailed above. These findings suggest an embolic phenomenon.
--- NOTE | 2019-04-25 15:43 | HP ---
CHIEF COMPLAINT: Change in mental status. HISTORY OF PRESENT ILLNESS: The patient is an 84-year-old male, who just was discharged from the hospital on 04/24 for UTI and influenza. He does have a suprapubic catheter and his catheter was changed, and he was on appropriate antibiotic therapy initially in the hospital. His culture indicated an E coli and was sent home on Levaquin. The patient actually was at the [place] and did just fine. Mentation was intact. However, this morning when he woke up, he appeared to be very confused and the family described it as "bored-like." The patient at this time was brought into the ER. Stroke workup was initiated. The patient did have a CTA, which indicated significant amount of fluid around his heart. Also, there was no acute stenosis indicated, but he did have a severe right-sided [employer] stenosis and also mild calcification plaque 50% in his right carotid and also otyccbhp-[id number]-[id number] stenosis in the distal left vertebral artery and mid basilar artery. At this time, given the concerns for pericardial effusion, he did undergo a CT dissection and the CT dissection did not indicate any dissection, however, indicated a large pericardial effusion. The patient also was found to have an elevated troponin of 18 and a lactic acid of 9. The patient initially was very obtunded. However, when I went to examine the patient, he was more awake and was following commands. I did speak with the ER physician and also Cardiology in regard to the patient's findings, EKG changes, and elevated troponins and lactic acid. Recommended CV Surgery to see the patient given his pericardial effusion. A stat echocardiogram was ordered. I did curbside CV Surgery, who stated that his effusion did not seem to be significant on the echocardiogram and also that his EF appeared to be very severely depressed. At this time, I did speak with the cpo again in regard to his worsening troponin. However, the patient currently had no chest pain. We will defer to the Cardiology for further recommendations in terms of possible cardiac catheterization. Also, there was some abnormality noted that his esophagus was pushing against his trachea. I did discuss this with the CV surgeon who stated that he did not think very much of it and the patient did not need to be transferred at this moment. PAST MEDICAL HISTORY: The patient has a history of a suprapubic catheter, has a history of prostate cancer, has a history of dementia and hypertension. PAST SURGICAL HISTORY: He has a suprapubic catheter, skin infection post I and D. SOCIAL HISTORY: He denies any alcohol use, drug use, or smoking history. He lives with his son; however, due to his current issue, he is in [facility]. FAMILY HISTORY: No history of heart disease per the patient's daughters. REVIEW OF SYSTEMS: Unable to really obtain. ALLERGIES: NO KNOWN DRUG ALLERGIES. MEDICATIONS: 1. Lisinopril 5 mg daily. 2. Torsemide 20 mg b.i.d. 3. Vitamin C daily. 4. Bactrim DS b.i.d. 5. He is on bicalutamide 50 mg daily. 6. Trospium 20 mg daily. 7. He was on levofloxacin and prednisone twice a day. PHYSICAL EXAMINATION: VITAL SIGNS: Temperature was 98.8, pulse 85, blood pressure 138/92, and oxygen saturation 100% on room air. GENERAL: He is awake and oriented x1. He does follow commands. CARDIOVASCULAR SYSTEM: S1 and S2 present. No murmurs, rubs, or gallops. LUNGS: Clear to auscultation. No rhonchi or wheezes noted. ABDOMEN: Soft and nontender. Bowel sounds are present x2. EXTREMITIES: No edema. Pedal pulses are present x2. NEUROLOGIC: He does have left-sided facial neglect. He is moving his right upper extremity and right lower extremity. In the left, he has minimal movement of his left upper and left lower extremity. NEUROLOGIC: He does have a mild little droop on his left face. LABORATORY RESULTS: As of the following; WBCs of 21.9, hemoglobin of 10.3, hematocrit of 33.9, platelets of 366. His chemistry; sodium of 139, potassium of 4.7, BUN of 19, creatinine of 1.79. His initial lactic acid was 9.5. His troponin was 18.2. As I mentioned, he did have a CTA and a CT dissection. The CT dissection indicated no aortic intimal dissection identified. A 4 cm fusiform infrarenal abdominal aortic aneurysm with chronic mural thrombus noted. 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 Moderate-sized pericardial effusion. Significant striae of the kidneys concerning for possible pyelonephritis. 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 ASSESSMENT AND PLAN: 1. The patient is a very pleasant 84-year-old male, who initially presented to the hospital with change in mental status. 2. Sepsis. We will start the patient on broad-spectrum antibiotics. It could be from the urinary source. We will check the urine. Blood cultures have already been done. Chest x-ray does not appear to have any acute abnormalities. 3. Acute metabolic encephalopathy. This could be secondary from a stroke versus a myocardial infarction. We will consult Cardiology and Neurology. Continue to monitor. The patient was given aspirin. 4. ST-elevation myocardial infarction. The patient did have some ST changes in leads II and III. I have discussed this with the cpo and given the fact that he has elevated troponins, this is concerning for a myocardial infarction. However, the patient has no chest pain. I will defer the decision making to the cpo. We will trend the troponins. I will also get an MRI brain. If he has not had a major or large infarct, I will start him on Lovenox or heparin. 5. Possible stroke. The patient does have left-sided neglect and prior to this yesterday he was fine. The patient woke up being altered. He is not a candidate for tPA. His NIH was improving as the time went on. The patient has been gotten an aspirin. We will give him statin and again after the MRI, we will decide. If there is no stroke, we will start him on anticoagulation. 6. Possibly urinary tract infection. We will continue broad-spectrum antibiotics and continue to monitor. 7. Lactic acidosis. This could be from underlying sepsis versus myocardial infarction versus stroke. 8. Acute on chronic kidney disease. We will continue to monitor. We will start some gentle hydration. 9. Protein-calorie malnutrition, probably [id number]. We will continue to monitor. Job ID: [id number]
[2019-04-25] MEDS ORDERED: Potassium Phosphate 15 MMOL in Sodium Chloride 0.9% 250 ML 250 ML IV PRN (15:53)
[2019-04-25] MEDS ORDERED: Potassium Phosphate 12 MMOL in Sodium Chloride 0.9% 250 ML 250 ML IV PRN (15:53)
[2019-04-25] MEDS ORDERED: Magnesium 2 GM/50 ML 2 GM in Premix Bag 1 BAG IVPB PRN (15:53)
[2019-04-25] MEDS ORDERED: CCU ELECTROLYTE REPLACEMENT PROTOCOL FS PRN (15:53)
[2019-04-25] MEDS ORDERED: Potassium Phosphate 9 MMOL in Sodium Chloride 0.9% 100 ML IVPB PRN (15:53)
[2019-04-25] MEDS ORDERED: Potassium Chloride 40 MEQ in Premix Bag 1 BAG IVPB PRN (15:53)
[2019-04-25] MEDS ORDERED: Magnesium Oxide 400 MG TAB PO PRN ×2 (15:53)
[2019-04-25] MEDS ORDERED: Potassium Chloride 20 MEQ TAB PO PRN (15:53)
[2019-04-25] MEDS ORDERED: PHOS-NAK 1 PKT PACK PO PRN ×2 (15:53)
[2019-04-25] MEDS ORDERED: Potassium Chloride 40 MEQ in Sodium Chloride 0.9% 250 ML 250 ML IVPB PRN (15:53)
[2019-04-25 19:11] LABS: Lactic Acid 4.3 mmol/L (0.5-2.2)
[2019-04-25 19:16] LABS: Anion Gap 18 mmol/L (10-20); BUN (Urea Nitrogen) 26 mg/dL (8.4-25.7); Calc. Creatinine Clearance 29 mL/min (70-130); Calcium 8.4 mg/dL (7.8-10.44); Carbon Dioxide 17 mmol/L (23-31); Chloride 108 mmol/L (98-107); Estimated GFR-MDRD 34; Glucose 104 mg/dL (83-110); Potassium 4.6 mmol/L (3.5-5.1); Sodium 138 mmol/L (136-145)
[2019-04-25 19:19] LABS: CKMB 39.3 ng/mL (0-6.6); Troponin I 21.834 ng/mL (< 0.028)
[2019-04-25] MEDS: Ampicillin/Sulbactam 1.5 GM in Sodium Chloride 0.9% 100 ML IVPB SCH ×2 (19:33→23:29)
[2019-04-25] MEDS: Atorvastatin Calcium 40 MG TAB PO SCH ×2 (19:34→19:36)
[2019-04-25] MEDS: Vancomycin HCl 1 GM in Premix Bag 1 BAG IVPB SCH (19:34)
[2019-04-25 23:22] LABS: Critical Call Chem Troponin I RESULT DECREASING; Troponin I 21.687 ng/mL (< 0.028)
--- NOTE | 2019-04-26 01:05 | CON ---
DATE OF CONSULTATION: 04/25/2019 CONSULTING PHYSICIAN: Hospitalist Services. IMPRESSION: Acute mental status change with slurred speech secondary to small vessel bilateral ischemic events. He does not appear to have a clear-cut cardioembolic source. He was not on any antiplatelet therapy prior to admission. PLAN: 1. Aspirin 325 mg per day. 2. Statin. 3. Possible transfer back to rehab. HISTORY OF PRESENT ILLNESS: Mr. Smith is an 84-year-old gentleman with a past history of dementia and hypertension. He has had a catheter in place for the last 6 years. He was brought to the urologist for catheter change. The urologist did not think that he looked quite right and brought him in thinking that he probably had an infection. He was treated for several days in the hospital and then transferred to Rehab. While in rehab, he developed slurred speech and was transferred back here. His MRI of the brain showed bilateral punctate areas of acute ischemia. His echocardiogram showed a 40-[address] angiogram showed around 50% stenosis of both carotids. His laboratory study showed an elevated white blood cell count. His chemistry panel shows an elevated troponin level suggestive of possible acute ME. He has some lactic acidosis. He has had an improvement in clarity of his speech. He denies that he has any lateralized weakness or numbness. PAST MEDICAL HISTORY: As listed above. ALLERGIES: NONE. SOCIAL HISTORY: No tobacco. FAMILY HISTORY: Noncontributory. REVIEW OF SYSTEMS: Ten-system review of systems is otherwise unremarkable. PHYSICAL EXAMINATION: VITAL SIGNS: Blood pressure 138/85, pulse 80, normal sinus rhythm, respirations 20. HEENT: Pupils equal and reactive. Conjunctivae clear. Oropharynx clear. NECK: Supple. No lymphadenopathy. EXTREMITIES: No cyanosis, clubbing, or edema. NEUROLOGIC: He was alert and cooperative. He was oriented to person. He followed most commands reasonably well. His speech was clear. There was no facial asymmetry. He had a right gaze preference. He had some neglect of simultaneous stimulation on the left side. He had antigravity strength bilaterally, but had poor ntfcpa-aj-cvlh accuracy. He could elevate both legs against gravity. SUMMARY: This is an elderly man with dementia and secondary small areas of ischemia. His exam is fairly nonfocal other than some sensory deficits. We can proceed with the current plan as ordered and I will be happy to follow. Job ID: [id number]
[2019-04-26 02:58] LABS: ALT (SGPT) 277 U/L (8-55); AST (SGOT) 1030 U/L (5-34); Albumin 2.8 g/dL (3.4-4.8); Alkaline Phosphatase 94 U/L (40-110); Anion Gap 16 mmol/L (10-20); BUN (Urea Nitrogen) 31 mg/dL (8.4-25.7); Bilirubin, Total 0.6 mg/dL (0.2-1.2); Calc. Creatinine Clearance 28 mL/min (70-130); Calcium 8.6 mg/dL (7.8-10.44); Carbon Dioxide 19 mmol/L (23-31); Chloride 110 mmol/L (98-107); Estimated GFR-MDRD 34; Globulin 3.8 g/dL (2.4-3.5); Glucose 100 mg/dL (83-110); Potassium 4.4 mmol/L (3.5-5.1); Protein, Total 6.6 g/dL (5.8-8.1); Sodium 141 mmol/L (136-145)
[2019-04-26 03:00] LABS: Critical Call Chem Troponin I RESULT DECREASING; Troponin I 19.586 ng/mL (< 0.028)
[2019-04-26] MEDS: Ampicillin/Sulbactam 1.5 GM in Sodium Chloride 0.9% 100 ML IVPB SCH (05:03)
[2019-04-26 07:51] LABS: Vancomycin, Trough 20.6 ug/mL
[2019-04-26] MEDS ORDERED: Vancomycin HCl 750 MG in Sodium Chloride 0.9% 250 ML 250 ML IVPB SCH (08:00)
--- NOTE | 2019-04-26 08:59 | PRG ---
DATE OF SERVICE: 04/26/2019 SUBJECTIVE: This morning, he is in the ICU, was brought in because of mental status change. OBJECTIVE: VITAL SIGNS: His sats are 98% on room air, temperature is 98, blood pressure 126/70, respiratory rate 18, and pulse 80. GENERAL: He is awake, responsive. He talks. He got some weakness on his right side. CHEST: Anterior rhonchi. CARDIAC: Normal S1 and S2. No gallops. ABDOMEN: Soft. LABORATORY DATA: His troponin is elevated. His lytes show creatinine 2.27, AST is 1030, and ALT is 277. MRI was negative. X-ray shows cardiomegaly, left pleural effusion. CT angio done shows no obvious clots. White count 21,000, H and H 10 and 30, and platelet count . So far, cultures are negative. IMPRESSION: 1. Encephalopathy, CVA. 2. Congestive heart failure, pericardial effusion, pleural effusion. 3. Advanced age, suprapubic catheter, dementia. PLAN: Antibiotic adjusted for the renal failure. We will deescalate antibiotics once we have all the cultures back. Otherwise, he is a DNR as per the family. PT, supportive care. Job ID: [id number]
[2019-04-26] MEDS ORDERED: Prevnar 13-Val Conj/PF 0.5 ML SYRINGE IM ONE (09:00)
[2019-04-26] MEDS ORDERED: Vancomycin HCl 1.25 GM in Sodium Chloride 0.9% 250 ML 250 ML IVPB SCH (09:00)
[2019-04-26] MEDS ORDERED: FLU VACC TS2019-20(65YR UP)/PF 180 MCG/0.5 ML SYRINGE IM ONE (09:00)
[2019-04-26] MEDS: Aspirin 81 mg Enteric Coated Tablet PO SCH (09:37)
[2019-04-26] MEDS: Sodium Chloride 0.9% 1,000 ML IV SCH (09:42)
[2019-04-26] MEDS: Vancomycin HCl 1 GM in Premix Bag 1 BAG IVPB SCH (09:43)
--- NOTE | 2019-04-26 12:10 | PDOC.CPN ---
- Subjective Date: 04/26/19 Time: 12:00 Interval history: The pt seen and examined. NO overnight events. No cardiac complaints. - Objective Allergies/Adverse Reactions: Allergies Allergy/AdvReac Type Severity Reaction Status Date / Time No Known Allergies Allergy Verified 04/16/19 21:19 Visit Medications: Current Medications Albuterol/Ipratropium (Duoneb) 3 ml NEB Q6H PRN PRN Reason: SOB &/or Wheezing Albuterol/Ipratropium (Duoneb) 3 ml NEB [id number] DILCIA Aspirin (Ecotrin) 81 mg PO DAILY DILCIA Last Admin: 04/26/19 09:37 Dose: Not Given Atorvastatin Calcium (Lipitor) 40 mg PO HS DILCIA Last Admin: 04/25/19 19:36 Dose: Not Given Sodium Chloride (Normal Saline 0.9%) 1,000 mls @ 50 mls/hr IV .Q20H DILCIA Last Admin: 04/26/19 09:42 Dose: 1,000 mls Potassium Chloride 40 meq/ (Sodium Chloride) 270 mls @ 135 mls/hr IVPB ASDIR PRN PRN Reason: FOR SERUM K+ 2.5 - 3.5 Potassium Chloride 40 meq/ (Device) 100 mls @ 50 mls/hr IVPB ASDIR PRN PRN Reason: FOR SERUM K+ 2.5 - 3.5 Magnesium Sulfate 1 gm/ Sodium (Chloride) 102 mls @ 102 mls/hr IV PRN PRN PRN Reason: MAG LEVEL 1.4 - 2.0 Magnesium Sulfate 2 gm/ Device 50 mls @ 50 mls/hr IVPB ASDIR PRN PRN Reason: MAGNESIUM < 1.4 Potassium Phosphate 9 mmol/ (Sodium Chloride) 103 mls @ 25.75 mls/hr IVPB ASDIR PRN PRN Reason: Phosphate 1.0-1.8 Potassium Phosphate 12 mmol/ (Sodium Chloride) 254 mls @ 63.5 mls/hr IV ASDIR PRN PRN Reason: Serum phosphate 0.5-0.9 Potassium Phosphate 15 mmol/ (Sodium Chloride) 255 mls @ 63.75 mls/hr IV ASDIR PRN PRN Reason: Serum Phos < 0.5 Vancomycin HCl 1.25 gm/ Sodium (Chloride) 250 mls @ 166.667 mls/hr IVPB 0900 DILCIA Last Admin: 04/26/19 09:42 Dose: 250 mls Piperacillin Sod/Tazobactam (Sod 3.375 gm/ Sodium Chloride) 100 mls @ 200 mls/ hr IVPB Q6HR [facility] Magnesium Oxide (Magnesium Oxide) 400 mg PO BIDPRN PRN PRN Reason: FOR SERUM MAG 1.4 - 2.0 Magnesium Oxide (Magnesium Oxide) 800 mg PO PRN PRN PRN Reason: FOR SERUM MAG < 1.4 Miscellaneous Medication (Phos-Nak) 1 pkt PO TIDPRN PRN PRN Reason: FOR PHOS LEVEL 1.0 - 1.8 Miscellaneous Medication (Phos-Nak) 2 pkt PO TIDPRN PRN PRN Reason: FOR PHOS LEVEL 0.5 - 1.0 Ccu Electrolyte (Replacement Protocol) 0 each FS PRN PRN PRN Reason: FOR ELECTROLYTE REPLACEMENT Potassium Chloride (K-Dur) 40 meq PO ASDIR PRN PRN Reason: FOR SERUM K+ 2.5 - 3.5 Potassium Chloride (Klor-Con) 40 meq PER TUBE ASDIR PRN PRN Reason: FOR SERUM K+ 2.5-3.5 Sodium Chloride (Flush - Normal Saline) 10 ml IVF Q12HR DILCIA Last Admin: 04/26/19 09:42 Dose: 10 ml Sodium Chloride (Flush - Normal Saline) 10 ml IVF PRN PRN PRN Reason: Saline Flush Vital Signs & Weight: Vital Signs Temp Pulse Ox 04/26/19 08:00 97.8 F 100 04/26/19 03:00 98.3 F Weight 180 lb 8.937 oz - Physical Exam General: alert & oriented x3 Neck: supple neck Cardiac: regular rate and rhythm, S1/S2 Lungs: clear to auscultation, decreased breath sounds - Labs Result Diagrams: 04/26/19 09:24 04/26/19 02:09 Troponin/CKMB CK-MB (CK-2) 39.3 ng/mL (0-6.6) H* 04/25/19 18:34 Troponin I 19.586 ng/mL (< 0.028) H* 04/26/19 02:09 - Telemetry Sinus rhythms and dysrhythmias: sinus rhythm - Assessment/Plan Assessment/Plan: 1. Abnormal trop - possible 2/2 CVA/TIA or [place]; Asymptomatic; medical tx only for now. He denies chest pain, no new ekg changes, TI trending down. 2. MIRANDA on CKD - unchanged 3. UTI - On ABX IV 4. HTN - stable 5. BPH - 6. Dementia - MAR reviewed * Echo on 04/25/2019 with EF 40-45%, inferior-posterior hypokinesis, mild ERV, mild dilated LA, mod ERA, mild-mod MR, trace AR, mild TR, and mild pericardial effusion. Pt. seen and eval. by me. I agree with the A/P by the COLORER. CT: chronic cerebral microvasc disease, MRI: bilateral cerebral infarcts ( see report ). Continue medical treatment. I do not anticipate a cardiac cath. jenna
[2019-04-26] MEDS: Piperacillin/Tazobactam 3.375 GM in Sodium Chloride 0.9% 100 ML IVPB SCH ×2 (12:42→18:08)
[2019-04-26 12:50] LABS: Mean Corpuscular HGB CONC 30.3 g/dL (32.0-36.0); Mean Corpuscular Hemoglobin 28.6 pg (27.0-31.0); Mean Corpuscular Volume 94.4 fL (78.0-98.0); Mean Platelet Volume 7.8 fL (7.4-10.4); Platelet Count 243 thou/uL (130-400); RBC Distribution Width 13.2 % (11.5-14.5); Red Blood Cell (RBC) Count 3.16 mill/uL (4.70-6.10)
[2019-04-26 13:09] LABS: Band 7 % (5-11); Lymphocytes 4 % (21-51); MDiff Complete? YES; Monocytes 2 % (0-10); Neutrophil 87 % (42-75); Platelet Morphology Comment Appears Adequate; Polychromasia SLIGHT = 2-3 cells (100X) (0-2/hpf); White Blood Cell (WBC) Count 18.7 thou/uL (4.8-10.8)
[2019-04-26] MEDS ORDERED: Ampicillin/Sulbactam 1.5 GM in Sodium Chloride 0.9% 100 ML IVPB SCH (18:00)
[2019-04-26] MEDS: Atorvastatin Calcium 40 MG TAB PO SCH (21:01)
[2019-04-27] MEDS: Piperacillin/Tazobactam 3.375 GM in Sodium Chloride 0.9% 100 ML IVPB SCH ×2 (00:14→10:07)
[2019-04-27 04:24] LABS: Band 6 % (5-11); Hemoglobin 8.6 g/dL (14.0-18.0); Lymphocytes 5 % (21-51); MDiff Complete? YES; Mean Corpuscular HGB CONC 31.3 g/dL (32.0-36.0); Mean Corpuscular Hemoglobin 28.5 pg (27.0-31.0); Mean Platelet Volume 7.2 fL (7.4-10.4); Metamyelocyte 2 % (0-0); Monocytes 4 % (0-10); Myelocyte 1 % (0-0); Neutrophil 82 % (42-75); Nucleated RBC 2 % (0); Platelet Count 272 thou/uL (130-400); Platelet Morphology Comment Appears Adequate; RBC Distribution Width 13.3 % (11.5-14.5); Red Blood Cell (RBC) Count 3.02 mill/uL (4.70-6.10); White Blood Cell (WBC) Count 16.9 thou/uL (4.8-10.8)
[2019-04-27 05:14] LABS: ALT (SGPT) 194 U/L (8-55); AST (SGOT) 322 U/L (5-34); Albumin 2.7 g/dL (3.4-4.8); Alkaline Phosphatase 102 U/L (40-110); Anion Gap 15 mmol/L (10-20); BUN (Urea Nitrogen) 34 mg/dL (8.4-25.7); Bilirubin, Total 0.7 mg/dL (0.2-1.2); Calc. Creatinine Clearance 27 mL/min (70-130); Calcium 8.3 mg/dL (7.8-10.44); Carbon Dioxide 20 mmol/L (23-31); Chloride 115 mmol/L (98-107); Estimated GFR-MDRD 32; Globulin 3.6 g/dL (2.4-3.5); Glucose 117 mg/dL (83-110); Potassium 3.9 mmol/L (3.5-5.1); Protein, Total 6.3 g/dL (5.8-8.1); Sodium 146 mmol/L (136-145)
[2019-04-27] MEDS ORDERED: Dextrose 5 %-0.45 % NaCl 500 ML IV SCH (07:15)
[2019-04-27] MEDS: Sodium Chloride 0.9% 1,000 ML IV SCH (08:12)
--- NOTE | 2019-04-27 08:32 | PRG ---
DATE OF SERVICE: 04/27/2019 SUBJECTIVE: Sarah, this morning, is sitting on the side of the bed in the chair, in no distress. OBJECTIVE: VITAL SIGNS: Saturations 100% on room air, pulse 70, respiratory rate 14, and blood pressure 120/77. NEUROLOGIC: He is appropriate. Moves both extremities. CHEST: Decreased breath sounds. No wheezing. CARDIAC: Normal S1 and S2. No gallops. ABDOMEN: No mass. LABORATORY DATA: Creatinine is 2.3. White count 16,000. All cultures negative. IMPRESSION: 1. Status post encephalopathy, dementia with possibly cerebrovascular accident, the patient is clearly much better. 2. Chronic renal failure, suprapubic catheter. All cultures are negative. At this stage, he is going to go to the stroke unit, eventually rehab. I see no reason to continue antibiotics. He is not septic. Cultures are negative. Continue aggressive PT. We will follow while in the ICU. Job ID: [id number]
[2019-04-27] MEDS: Aspirin 81 mg Enteric Coated Tablet PO SCH (10:06)
[2019-04-27] MEDS: Cefdinir 300 MG CAP PO SCH (10:06)
--- NOTE | 2019-04-27 11:23 | PQF ---
DATE: 04-27-19 ATTN: DR. ALEXX GIL/ DR. VELVET CASTRO Please exercise your independent, professional judgment in responding to the clarification form. Clinical indicators are provided on the bottom of this form for your review Please check appropriate box(s): [ x ] SEPSIS WITH UTI D/T SUPRAPUBIC CATHETER [ ] SEPSIS WITH UTI NOT D/T SUPRAPUBIC CATHETER [ ] SEPSIS WITH NO UTI [ ] Contaminated urine specimen without UTI [ ] Other diagnosis [ ] Unable to determine In addition, please specify: Present on Admission (POA): [ x ] Yes [ ] No [ ] Unable to determine For continuity of documentation, please document condition throughout progress notes and discharge summary. Thank You. CLINICAL INDICATORS - SIGNS / SYMPTOMS / LABS / RESULTS AND LOCATION IN MR: ER NOTES 04-25-19: TEMP: 99.9, PULSE: 112, RR: 28, SUPRAPUBIC CATHETER H&P 04-25-19: HE DOES HAVE A SUPRAPUBIC CATHETER AND HIS CATHETER WAS CHANGED , AND HE WAS ON APPROPRIATE ANTIBIOTIC THERAPY INITIALLY IN THE HOSPITAL. H&P 04-25-19: SEPSIS. WE WILL START ON BROAD-SPECTRUM ANTIBIOTICS. IT COULD BE FROM THE URINARY SOURCE. WE WILL CHECK THE URINE. WBC: 04-25-19: 21.9 04-26-19: 18.7 04-27-19: 16.9 LACTIC ACID: 04-25-19: 9.5, 6.4, 5.7 4.3 URINE 04-25-19: UR LEUKOCYTE ESTERASE: TRACE H URINE WBC: 7-10 A URINE BACTERIA: 4+ A RISK FACTORS / RESULTS AND LOCATION IN MR: H&P 04-25-19: HE DOES HAVE A SUPRAPUBIC CATHETER AND HIS CATHETER WAS CHANGED, AND HE WAS ON APPROPRIATE ANTIBIOTIC THERAPY INITIALLY IN THE HOSPITAL. TREATMENT / RESULTS AND LOCATION IN MR: H&P 04-25-19: SEPSIS. WE WILL START ON BROAD-SPECTRUM ANTIBIOTICS. IT COULD BE FROM THE URINARY SOURCE. WE WILL CHECK THE URINE. MAR: 04-25-19: IVF NS MAR: 04-27-19: OMNICEF PO MAR: 04-26-19: ZOSYN IV, VANCOMYCIN IV (This form is maintained as a part of the permanent medical record) 2014 [employer]. All Rights Reserved RENETTA [email or web address] Office: [phone] [facility]
--- NOTE | 2019-04-27 11:39 | PDOC.CPN ---
- Subjective Date: 04/27/19 Time: 08:30 Interval history: The pt seen and examined. No overnight events. No cardiac complaints. He is intermittent confused - Objective Allergies/Adverse Reactions: Allergies Allergy/AdvReac Type Severity Reaction Status Date / Time No Known Allergies Allergy Verified 04/16/19 21:19 Visit Medications: Current Medications Albuterol/Ipratropium (Duoneb) 3 ml NEB Q6H PRN PRN Reason: SOB &/or Wheezing Albuterol/Ipratropium (Duoneb) 3 ml NEB [id number] DILCIA Last Admin: 04/27/19 06:44 Dose: 3 ml Aspirin (Ecotrin) 81 mg PO DAILY DILCIA Last Admin: 04/27/19 10:06 Dose: 81 mg Atorvastatin Calcium (Lipitor) 40 mg PO HS DILCIA Last Admin: 04/26/19 21:01 Dose: 40 mg Cefdinir (Omnicef) 300 mg PO DAILY DILCIA Stop: 05/01/19 09:01 Last Admin: 04/27/19 10:06 Dose: 300 mg Sodium Chloride (Normal Saline 0.9%) 1,000 mls @ 50 mls/hr IV .Q20H DILCIA Last Admin: 04/27/19 08:12 Dose: Not Given Potassium Chloride 40 meq/ (Sodium Chloride) 270 mls @ 135 mls/hr IVPB ASDIR PRN PRN Reason: FOR SERUM K+ 2.5 - 3.5 Potassium Chloride 40 meq/ (Device) 100 mls @ 50 mls/hr IVPB ASDIR PRN PRN Reason: FOR SERUM K+ 2.5 - 3.5 Magnesium Sulfate 1 gm/ Sodium (Chloride) 102 mls @ 102 mls/hr IV PRN PRN PRN Reason: MAG LEVEL 1.4 - 2.0 Magnesium Sulfate 2 gm/ Device 50 mls @ 50 mls/hr IVPB ASDIR PRN PRN Reason: MAGNESIUM < 1.4 Potassium Phosphate 9 mmol/ (Sodium Chloride) 103 mls @ 25.75 mls/hr IVPB ASDIR PRN PRN Reason: Phosphate 1.0-1.8 Potassium Phosphate 12 mmol/ (Sodium Chloride) 254 mls @ 63.5 mls/hr IV ASDIR PRN PRN Reason: Serum phosphate 0.5-0.9 Potassium Phosphate 15 mmol/ (Sodium Chloride) 255 mls @ 63.75 mls/hr IV ASDIR PRN PRN Reason: Serum Phos < 0.5 Dextrose/Sodium Chloride (D5 1/2 Ns) 500 mls @ 50 mls/hr IV .Q10H [facility] Stop: 04/27/19 17:00 Last Admin: 04/27/19 08:20 Dose: 500 mls Magnesium Oxide (Magnesium Oxide) 400 mg PO BIDPRN PRN PRN Reason: FOR SERUM MAG 1.4 - 2.0 Magnesium Oxide (Magnesium Oxide) 800 mg PO PRN PRN PRN Reason: FOR SERUM MAG < 1.4 Miscellaneous Medication (Phos-Nak) 1 pkt PO TIDPRN PRN PRN Reason: FOR PHOS LEVEL 1.0 - 1.8 Miscellaneous Medication (Phos-Nak) 2 pkt PO TIDPRN PRN PRN Reason: FOR PHOS LEVEL 0.5 - 1.0 Ccu Electrolyte (Replacement Protocol) 0 each FS PRN PRN PRN Reason: FOR ELECTROLYTE REPLACEMENT Potassium Chloride (K-Dur) 40 meq PO ASDIR PRN PRN Reason: FOR SERUM K+ 2.5 - 3.5 Potassium Chloride (Klor-Con) 40 meq PER TUBE ASDIR PRN PRN Reason: FOR SERUM K+ 2.5-3.5 Sodium Chloride (Flush - Normal Saline) 10 ml IVF Q12HR [facility] Last Admin: 04/27/19 10:06 Dose: 10 ml Sodium Chloride (Flush - Normal Saline) 10 ml IVF PRN PRN PRN Reason: Saline Flush Vital Signs & Weight: Vital Signs Temp Pulse Pulse Pulse Resp BP BP 04/27/19 09:03 87 88 123/69 121/72 04/27/19 07:00 98.6 F 04/27/19 06:44 78 14 04/27/19 04:00 98.3 F 04/27/19 00:00 98.1 F Pulse Ox 04/27/19 09:03 04/27/19 07:00 04/27/19 06:44 100 04/27/19 04:00 04/27/19 00:00 Weight 180 lb 12.465 oz - Physical Exam General: other (confused) HEENT: mucus membranes moist Neck: supple neck Cardiac: regular rate and rhythm, S1/S2 Lungs: clear to auscultation - Labs Result Diagrams: 04/27/19 03:13 04/27/19 03:13 Troponin/CKMB CK-MB (CK-2) 39.3 ng/mL (0-6.6) H* 04/25/19 18:34 Troponin I 19.586 ng/mL (< 0.028) H* 04/26/19 02:09 - Telemetry Sinus rhythms and dysrhythmias: sinus rhythm - Assessment/Plan Assessment/Plan: 1. Abnormal trop - possible 2/2 CVA/TIA or VA; Asymptomatic; medical tx only for now. He denies chest pain, no new ekg changes, TI trending down. 2. MIRANDA on CKD - unchanged 3. UTI - On ABX IV 4. HTN - stable 5. BPH - 6. Dementia - 7. 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 Pt, seen and eval. by me.I agree with the A/P by the PIGMENT PRESSER.Cardiac status is stable. No further cardiac workup at this time. I will sign off. I will be happy to follow up with the pt. in the office in a month or so. jenna
[2019-04-27] MEDS: Atorvastatin Calcium 40 MG TAB PO SCH (21:39)
[2019-04-28 06:03] LABS: ALT (SGPT) 158 U/L (8-55); AST (SGOT) 194 U/L (5-34); Albumin 2.7 g/dL (3.4-4.8); Alkaline Phosphatase 106 U/L (40-110); Anion Gap 18 mmol/L (10-20); BUN (Urea Nitrogen) 30 mg/dL (8.4-25.7); Bilirubin, Total 1.4 mg/dL (0.2-1.2); Calc. Creatinine Clearance 33 mL/min (70-130); Calcium 8.2 mg/dL (7.8-10.44); Carbon Dioxide 14 mmol/L (23-31); Chloride 118 mmol/L (98-107); Estimated GFR-MDRD 40; Globulin 3.9 g/dL (2.4-3.5); Glucose 114 mg/dL (83-110); Potassium 5.1 mmol/L (3.5-5.1); Protein, Total 6.6 g/dL (5.8-8.1); Sodium 145 mmol/L (136-145)
[2019-04-28] MEDS: Aspirin 81 mg Enteric Coated Tablet PO SCH (08:12)
[2019-04-28] MEDS: Sodium Chloride 0.9% 1,000 ML IV SCH (08:12)
[2019-04-28] MEDS: Cefdinir 300 MG CAP PO SCH (08:13)
--- NOTE | 2019-04-28 15:46 | PDOC.HOSPP ---
- Subjective Encounter Date: 04/26/19 Encounter Time: 09:00 Subjective: pt up in bed more awake. family at bedside - Objective Vital Signs & Weight: Vital Signs (12 hours) Temp Pulse Pulse Pulse Resp BP BP 04/28/19 13:42 87 16 04/28/19 11:57 97.3 F L 86 16 04/28/19 09:52 135/95 H 134/90 04/28/19 08:31 78 87 141/84 H 150/89 H 04/28/19 08:01 04/28/19 08:00 98.2 F 74 16 04/28/19 07:58 86 16 BP Pulse Ox 04/28/19 13:42 97 04/28/19 11:57 116/79 98 04/28/19 09:52 04/28/19 08:31 04/28/19 08:01 99 04/28/19 08:00 133/72 99 04/28/19 07:58 97 Weight Weight 182 lb 14.4 oz Most Recent Monitor Data Heart Rate from ECG 86 NIBP 121/80 NIBP BP-Mean 93 Respiration from ECG 22 SpO2 100 I&O: 04/27/19 04/28/19 04/29/19 06:59 06:59 06:59 Intake Total 2854 340 Output Total 1280 890 Balance 1574 -550 Result Diagrams: 04/27/19 03:13 04/28/19 05:09 Hospitalist ROS - Review of Systems Cardiovascular: denies: chest pain, palpitations, orthopnea, paroxysmal noc. dyspnea, edema, light headedness, other Gastrointestinal: denies: nausea, vomiting, abdominal pain, diarrhea, constipation, melena, hematochezia, other - Medication Medications: Active Medications Generic Name Dose Route Start Last Admin Trade Name Freq PRN Reason Stop Dose Admin Albuterol/Ipratropium 3 ml 04/26/19 13:00 04/28/19 13:42 Duoneb NEB 3 ml [id number] DILCIA Administration Aspirin 81 mg 04/26/19 09:00 04/28/19 08:12 Ecotrin PO 81 mg DAILY DILCIA Administration Atorvastatin Calcium 40 mg 04/25/19 21:00 04/27/19 21:39 Lipitor PO 40 mg HS DILCIA Administration Cefdinir 300 mg 04/27/19 09:00 04/28/19 08:13 Omnicef PO 05/01/19 09:01 300 mg DAILY DILCIA Administration Sodium Chloride 1,000 mls @ 50 mls/hr 04/25/19 11:45 04/28/19 08:12 Normal Saline 0.9% IV 1,000 mls .Q20H DILCIA Administration Sodium Chloride 10 ml 04/25/19 21:00 04/28/19 08:13 Flush - Normal Saline IVF Not Given Q12HR DILCIA - Exam Respiratory: negative: CTAB, no wheezes, no rales, no ronchi, normal chest expansion, no tachypnea, normal percussion, rales, rhonchi, tachypneic, wheezes Gastrointestinal: negative: soft, non-tender, non-distended, normal bowel sounds , no palpable masses, no hepatomegaly, no splenomegaly, no bruit, no guarding, no rigidity, tender to palpation, distended, diminished bowl sounds, voluntary guarding Extremities: negative: no cyanosis, no clubbing, no edema, 1+ LE edema, 2+ LE edema, clubbing Hosp A/P (1) Stroke Code(s): I63.9 - CEREBRAL INFARCTION, UNSPECIFIED Status: Acute (2) NSTEMI (non-ST elevated myocardial infarction) Code(s): I21.4 - NON-ST ELEVATION (NSTEMI) MYOCARDIAL INFARCTION Status: Acute (3) MIRANDA (acute kidney injury) Code(s): N17.9 - ACUTE KIDNEY FAILURE, UNSPECIFIED Status: Acute (4) Acute metabolic encephalopathy Code(s): G93.41 - METABOLIC ENCEPHALOPATHY Status: Acute - Plan pt's family does not want him to get a cardiac cath. pt's son wants conservative management. Maykel wants his father to be a DNAR. Maykel is the poa. will continue to eval him. He will need speech to see him.
--- NOTE | 2019-04-28 15:49 | PDOC.HOSPP ---
- Subjective Encounter Date: 04/27/19 Encounter Time: 11:44 Subjective: pt up in bed more awake and tolerated his meals. - Objective Vital Signs & Weight: Vital Signs (12 hours) Temp Pulse Pulse Pulse Resp BP BP 04/28/19 13:42 87 16 04/28/19 11:57 97.3 F L 86 16 04/28/19 09:52 135/95 H 134/90 04/28/19 08:31 78 87 141/84 H 150/89 H 04/28/19 08:01 04/28/19 08:00 98.2 F 74 16 04/28/19 07:58 86 16 BP Pulse Ox 04/28/19 13:42 97 04/28/19 11:57 116/79 98 04/28/19 09:52 04/28/19 08:31 04/28/19 08:01 99 04/28/19 08:00 133/72 99 04/28/19 07:58 97 Weight Weight 182 lb 14.4 oz Most Recent Monitor Data Heart Rate from ECG 86 NIBP 121/80 NIBP BP-Mean 93 Respiration from ECG 22 SpO2 100 I&O: 04/27/19 04/28/19 04/29/19 06:59 06:59 06:59 Intake Total 2854 340 Output Total 1280 890 Balance 1574 -550 Result Diagrams: 04/27/19 03:13 04/28/19 05:09 Hospitalist ROS - Review of Systems Cardiovascular: denies: chest pain, palpitations, orthopnea, paroxysmal noc. dyspnea, edema, light headedness, other Gastrointestinal: denies: nausea, vomiting, abdominal pain, diarrhea, constipation, melena, hematochezia, other Genitourinary: denies: dysuria, frequency, incontinence, hematuria, retention, other - Medication Medications: Active Medications Generic Name Dose Route Start Last Admin Trade Name Freq PRN Reason Stop Dose Admin Albuterol/Ipratropium 3 ml 04/26/19 13:00 04/28/19 13:42 Duoneb NEB 3 ml [id number] DILCIA Administration Aspirin 81 mg 04/26/19 09:00 04/28/19 08:12 Ecotrin PO 81 mg DAILY DILCIA Administration Atorvastatin Calcium 40 mg 04/25/19 21:00 04/27/19 21:39 Lipitor PO 40 mg HS DILCIA Administration Cefdinir 300 mg 04/27/19 09:00 04/28/19 08:13 Omnicef PO 05/01/19 09:01 300 mg DAILY DILCIA Administration Sodium Chloride 1,000 mls @ 50 mls/hr 04/25/19 11:45 04/28/19 08:12 Normal Saline 0.9% IV 1,000 mls .Q20H DILCIA Administration Sodium Chloride 10 ml 04/25/19 21:00 04/28/19 08:13 Flush - Normal Saline IVF Not Given Q12HR DILCIA - Exam Respiratory: negative: CTAB, no wheezes, no rales, no ronchi, normal chest expansion, no tachypnea, normal percussion, rales, rhonchi, tachypneic, wheezes Gastrointestinal: negative: soft, non-tender, non-distended, normal bowel sounds , no palpable masses, no hepatomegaly, no splenomegaly, no bruit, no guarding, no rigidity, tender to palpation, distended, diminished bowl sounds, voluntary guarding Extremities: negative: no cyanosis, no clubbing, no edema, 1+ LE edema, 2+ LE edema, clubbing Hosp A/P (1) Stroke Code(s): I63.9 - CEREBRAL INFARCTION, UNSPECIFIED Status: Acute (2) NSTEMI (non-ST elevated myocardial infarction) Code(s): I21.4 - NON-ST ELEVATION (NSTEMI) MYOCARDIAL INFARCTION Status: Acute (3) MIRANDA (acute kidney injury) Code(s): N17.9 - ACUTE KIDNEY FAILURE, UNSPECIFIED Status: Acute (4) Acute metabolic encephalopathy Code(s): G93.41 - METABOLIC ENCEPHALOPATHY Status: Acute - Plan pt's family does not want him to get a cardiac cath. pt's son wants conservative management. Maykel wants his father to be a DNAR. Maykel is the poa. will continue to eval him. He will need speech to see him. 04/29 pt tolerating pureed diet. will transfer him to stroke.
--- NOTE | 2019-04-28 15:51 | PDOC.HOSPP ---
- Subjective Encounter Date: 04/28/19 Encounter Time: 08:00 Subjective: pt up in bed awake no complains - Objective Vital Signs & Weight: Vital Signs (12 hours) Temp Pulse Pulse Pulse Resp BP BP 04/28/19 13:42 87 16 04/28/19 11:57 97.3 F L 86 16 04/28/19 09:52 135/95 H 134/90 04/28/19 08:31 78 87 141/84 H 150/89 H 04/28/19 08:01 04/28/19 08:00 98.2 F 74 16 04/28/19 07:58 86 16 BP Pulse Ox 04/28/19 13:42 97 04/28/19 11:57 116/79 98 04/28/19 09:52 04/28/19 08:31 04/28/19 08:01 99 04/28/19 08:00 133/72 99 04/28/19 07:58 97 Weight Weight 182 lb 14.4 oz Most Recent Monitor Data Heart Rate from ECG 86 NIBP 121/80 NIBP BP-Mean 93 Respiration from ECG 22 SpO2 100 I&O: 04/27/19 04/28/19 04/29/19 06:59 06:59 06:59 Intake Total 2854 340 Output Total 1280 890 Balance 1574 -550 Result Diagrams: 04/27/19 03:13 04/28/19 05:09 Hospitalist ROS - Review of Systems Cardiovascular: denies: chest pain, palpitations, orthopnea, paroxysmal noc. dyspnea, edema, light headedness, other Gastrointestinal: denies: nausea, vomiting, abdominal pain, diarrhea, constipation, melena, hematochezia, other - Medication Medications: Active Medications Generic Name Dose Route Start Last Admin Trade Name Freq PRN Reason Stop Dose Admin Albuterol/Ipratropium 3 ml 04/26/19 13:00 04/28/19 13:42 Duoneb NEB 3 ml [id number] DILCIA Administration Aspirin 81 mg 04/26/19 09:00 04/28/19 08:12 Ecotrin PO 81 mg DAILY DILCIA Administration Atorvastatin Calcium 40 mg 04/25/19 21:00 04/27/19 21:39 Lipitor PO 40 mg HS DILCIA Administration Cefdinir 300 mg 04/27/19 09:00 04/28/19 08:13 Omnicef PO 05/01/19 09:01 300 mg DAILY DILCIA Administration Sodium Chloride 1,000 mls @ 50 mls/hr 04/25/19 11:45 04/28/19 08:12 Normal Saline 0.9% IV 1,000 mls .Q20H DILCIA Administration Sodium Chloride 10 ml 04/25/19 21:00 04/28/19 08:13 Flush - Normal Saline IVF Not Given Q12HR DILCIA - Exam Neck: negative: supple, symmetric, no JVD, no thyromegaly, no lymphadenopathy, no carotid bruit, JVD Heart: negative: RRR, no murmur, no gallops, no rubs, normal peripheral pulses, irregular, diminshed peripheral pulses, murmur present, II/IV, III/IV Respiratory: negative: CTAB, no wheezes, no rales, no ronchi, normal chest expansion, no tachypnea, normal percussion, rales, rhonchi, tachypneic, wheezes Gastrointestinal: negative: soft, non-tender, non-distended, normal bowel sounds , no palpable masses, no hepatomegaly, no splenomegaly, no bruit, no guarding, no rigidity, tender to palpation, distended, diminished bowl sounds, voluntary guarding Hosp A/P (1) Stroke Code(s): I63.9 - CEREBRAL INFARCTION, UNSPECIFIED Status: Acute (2) NSTEMI (non-ST elevated myocardial infarction) Code(s): I21.4 - NON-ST ELEVATION (NSTEMI) MYOCARDIAL INFARCTION Status: Acute (3) MIRANDA (acute kidney injury) Code(s): N17.9 - ACUTE KIDNEY FAILURE, UNSPECIFIED Status: Acute (4) Acute metabolic encephalopathy Code(s): G93.41 - METABOLIC ENCEPHALOPATHY Status: Acute - Plan pt's family does not want him to get a cardiac cath. pt's son wants conservative management. Maykel wants his father to be a DNAR. Maykel is the poa. will continue to eval him. He will need speech to see him. 04/29 pt tolerating pureed diet. will transfer him to stroke. 04/28 spoke with pt's son Maykel about AC for pt in the future due to possible embolic source of his stroke. Maykel does not want him to have AC given risk. He wants pt to have conservative management. will sent to snf
[2019-04-28] MEDS: Atorvastatin Calcium 40 MG TAB PO SCH (21:02)
[2019-04-29 05:56] LABS: ALT (SGPT) 118 U/L (8-55); AST (SGOT) 113 U/L (5-34); Albumin 2.9 g/dL (3.4-4.8); Alkaline Phosphatase 120 U/L (40-110); Anion Gap 17 mmol/L (10-20); BUN (Urea Nitrogen) 31 mg/dL (8.4-25.7); Bilirubin, Total 1.3 mg/dL (0.2-1.2); Calc. Creatinine Clearance 34 mL/min (70-130); Calcium 8.6 mg/dL (7.8-10.44); Carbon Dioxide 17 mmol/L (23-31); Chloride 116 mmol/L (98-107); Estimated GFR-MDRD 42; Globulin 3.7 g/dL (2.4-3.5); Glucose 114 mg/dL (83-110); Potassium 4.4 mmol/L (3.5-5.1); Protein, Total 6.6 g/dL (5.8-8.1); Sodium 146 mmol/L (136-145)
[2019-04-29] MEDS: Sodium Chloride 0.9% 1,000 ML IV SCH (06:26)
[2019-04-29] MEDS: Cefdinir 300 MG CAP PO SCH (09:46)
[2019-04-29] MEDS: Aspirin 81 mg Enteric Coated Tablet PO SCH (09:46)
--- NOTE | 2019-04-29 16:19 | PDOC.HOSPP ---
- Subjective Encounter Date: 04/29/19 Encounter Time: 13:00 Subjective: pt up in bed confused. - Objective Vital Signs & Weight: Vital Signs (12 hours) Temp Pulse Resp BP Pulse Ox 04/29/19 15:38 97.7 F 77 18 128/87 95 04/29/19 11:40 97.7 F 90 16 142/92 H 98 04/29/19 08:07 79 16 95 04/29/19 07:33 99.3 F 80 18 139/94 H Weight Weight 182 lb Most Recent Monitor Data Heart Rate from ECG 86 NIBP 121/80 NIBP BP-Mean 93 Respiration from ECG 22 SpO2 100 I&O: 04/28/19 04/29/19 04/30/19 06:59 06:59 06:59 Intake Total 340 840 480 Output Total 890 1000 650 Balance -550 160 170 Result Diagrams: 04/27/19 03:13 04/29/19 05:01 Hospitalist ROS - Review of Systems Respiratory: denies: cough, dry, shortness of breath, hemoptysis, SOB with excertion, pleuritic pain, sputum, wheezing, other Cardiovascular: denies: chest pain, palpitations, orthopnea, paroxysmal noc. dyspnea, edema, light headedness, other Gastrointestinal: denies: nausea, vomiting, abdominal pain, diarrhea, constipation, melena, hematochezia, other - Medication Medications: Active Medications Generic Name Dose Route Start Last Admin Trade Name Freq PRN Reason Stop Dose Admin Albuterol/Ipratropium 3 ml 04/26/19 13:00 04/29/19 14:32 Duoneb NEB Not Given [id number] DILCIA Aspirin 81 mg 04/26/19 09:00 04/29/19 09:46 Ecotrin PO 81 mg DAILY DILCIA Administration Atorvastatin Calcium 40 mg 04/25/19 21:00 04/28/19 21:02 Lipitor PO 40 mg HS DILCIA Administration Cefdinir 300 mg 04/27/19 09:00 04/29/19 09:46 Omnicef PO 05/01/19 09:01 300 mg DAILY DILCIA Administration Sodium Chloride 10 ml 04/25/19 21:00 04/29/19 09:46 Flush - Normal Saline IVF 10 ml Q12HR DILCIA Administration - Exam Neck: negative: supple, symmetric, no JVD, no thyromegaly, no lymphadenopathy, no carotid bruit, JVD Heart: negative: RRR, no murmur, no gallops, no rubs, normal peripheral pulses, irregular, diminshed peripheral pulses, murmur present, II/IV, III/IV Respiratory: negative: CTAB, no wheezes, no rales, no ronchi, normal chest expansion, no tachypnea, normal percussion, rales, rhonchi, tachypneic, wheezes Hosp A/P (1) Stroke Code(s): I63.9 - CEREBRAL INFARCTION, UNSPECIFIED Status: Acute (2) NSTEMI (non-ST elevated myocardial infarction) Code(s): I21.4 - NON-ST ELEVATION (NSTEMI) MYOCARDIAL INFARCTION Status: Acute (3) MIRANDA (acute kidney injury) Code(s): N17.9 - ACUTE KIDNEY FAILURE, UNSPECIFIED Status: Acute (4) Acute metabolic encephalopathy Code(s): G93.41 - METABOLIC ENCEPHALOPATHY Status: Acute - Plan pt's family does not want him to get a cardiac cath. pt's son wants conservative management. Maykel wants his father to be a DNAR. Maykel is the poa. will continue to eval him. He will need speech to see him. 04/29 pt tolerating pureed diet. will transfer him to stroke. 04/28 spoke with pt's son Maykel about AC for pt in the future due to possible embolic source of his stroke. Maykel does not want him to have AC given risk. He wants pt to have conservative management. will sent to snf 04/29 pt on asa/statin. will need snf. He is confused. Ef is preserved. Tolerating pureed diet. creatinine is improving.
[2019-04-29] MEDS: Carvedilol 6.25 MG TAB PO SCH (17:05)
[2019-04-29] MEDS: Atorvastatin Calcium 40 MG TAB PO SCH (20:14)
[2019-04-30 07:48] LABS: ALT (SGPT) 135 U/L (8-55); AST (SGOT) 218 U/L (5-34); Albumin 3.1 g/dL (3.4-4.8); Alkaline Phosphatase 132 U/L (40-110); Anion Gap 19 mmol/L (10-20); BUN (Urea Nitrogen) 40 mg/dL (8.4-25.7); Bilirubin, Total 1.5 mg/dL (0.2-1.2); Calc. Creatinine Clearance 30 mL/min (70-130); Calcium 8.8 mg/dL (7.8-10.44); Carbon Dioxide 15 mmol/L (23-31); Chloride 117 mmol/L (98-107); Estimated GFR-MDRD 35; Globulin 3.9 g/dL (2.4-3.5); Glucose 104 mg/dL (83-110); Potassium 4.7 mmol/L (3.5-5.1); Sodium 146 mmol/L (136-145)
[2019-04-30 08:08] LABS: #Eosinphils 0.2 thou/uL (0.0-0.7); #Lymphocytes 1.4 thou/uL (1.20-3.40); #Neutrophils 10.9 thou/uL (1.40-6.50); %Basophils 0.1 % (0.0-1.0); %Eosinophils 1.2 % (0.0-10.0); %Lymphocytes 10.2 % (21.0-51.0); %Monocytes 7.3 % (0.0-10.0); %Neutrophils 81.3 % (42.0-75.0); Hemoglobin 8.6 g/dL (14.0-18.0); Hypochromia SLIGHT = 6-15 cells (100X) (0-5/hpf); MDiff Complete? YES; Mean Corpuscular HGB CONC 31.4 g/dL (32.0-36.0); Mean Corpuscular Hemoglobin 29.3 pg (27.0-31.0); Mean Corpuscular Volume 93.5 fL (78.0-98.0); Mean Platelet Volume 8.2 fL (7.4-10.4); Platelet Count 231 thou/uL (130-400); Polychromasia SLIGHT = 2-3 cells (100X) (0-2/hpf); RBC Distribution Width 14.8 % (11.5-14.5); Red Blood Cell (RBC) Count 2.94 mill/uL (4.70-6.10); White Blood Cell (WBC) Count 13.4 thou/uL (4.8-10.8)
[2019-04-30] MEDS: Aspirin 81 mg Enteric Coated Tablet PO SCH (08:16)
[2019-04-30] MEDS: Carvedilol 6.25 MG TAB PO SCH ×2 (08:16→16:30)
[2019-04-30] MEDS: Cefdinir 300 MG CAP PO SCH (08:16)
--- NOTE | 2019-04-30 11:19 | PDOC.HOSPP ---
- Subjective Encounter Date: 04/30/19 Encounter Time: 11:10 Subjective: f/u s/p NSTEMI and ischemic bilat CVA medically managed with ASA/Lipitor. No new events reported and nursing states he is tolerating pureed diet with thickened liquids. Remains confused and ambulated short distance with PT. - Objective Vital Signs & Weight: Vital Signs (12 hours) Temp Pulse Resp BP BP Pulse Ox 04/30/19 08:16 120/86 04/30/19 07:48 98 F 74 18 120/86 92 L 04/30/19 06:38 72 16 04/30/19 04:00 98.7 F 93 18 121/82 92 L 04/30/19 00:14 79 16 Weight Weight 181 lb 8 oz Most Recent Monitor Data Heart Rate from ECG 86 NIBP 121/80 NIBP BP-Mean 93 Respiration from ECG 22 SpO2 100 I&O: 04/29/19 04/30/19 05/01/19 06:59 06:59 06:59 Intake Total 840 1000 Output Total 1000 1500 Balance -160 -500 Result Diagrams: 04/30/19 07:02 04/30/19 07:02 Additional Labs: Microbiology 04/25/19 07:47 Venous blood - Left Hand Blood Culture - Final NO GROWTH IN 5 DAYS 04/25/19 07:16 Venous blood - Left Hand Blood Culture - Final NO GROWTH IN 5 DAYS Laboratory Tests 04/25/19 04/25/19 04/25/19 06:40 06:40 10:55 WBC 21.9 H Sodium Creatinine AST Troponin I 18.215 H* 21.886 H* 04/25/19 04/25/19 04/25/19 14:01 18:34 22:28 WBC Sodium Creatinine AST Troponin I 23.040 H* 21.834 H* 21.687 H* 04/26/19 04/26/19 04/26/19 02:09 02:09 09:24 WBC 18.7 H Sodium Creatinine AST 1030 H Troponin I 19.586 H* 04/27/19 04/27/19 04/28/19 03:13 03:13 05:09 WBC 16.9 H Sodium 146 H 145 Creatinine 2.37 H 1.95 H AST 322 H 194 H Troponin I 04/29/19 05:01 WBC Sodium 146 H Creatinine 1.88 H AST 113 H Troponin I EKG Reviewed by me: Yes (Tele - SR) Hospitalist ROS - Medication Medications: Active Medications Generic Name Dose Route Start Last Admin Trade Name Freq PRN Reason Stop Dose Admin Albuterol/Ipratropium 3 ml 04/26/19 13:00 04/30/19 06:38 Duoneb NEB 3 ml [id number] DILCIA Administration Aspirin 81 mg 04/26/19 09:00 04/30/19 08:16 Ecotrin PO 81 mg DAILY DILCIA Administration Atorvastatin Calcium 40 mg 04/25/19 21:00 04/29/19 20:14 Lipitor PO 40 mg HS DILCIA Administration Carvedilol 6.25 mg 04/29/19 17:00 04/30/19 08:16 Coreg PO 6.25 mg BID-WM DILCIA Administration Cefdinir 300 mg 04/27/19 09:00 04/30/19 08:16 Omnicef PO 05/01/19 09:01 300 mg DAILY DILCIA Administration Sodium Chloride 10 ml 04/25/19 21:00 04/30/19 08:32 Flush - Normal Saline IVF Not Given Q12HR DILCIA - Exam General Appearance: awake alert General - other findings: responds to questions Eye: PERRL, anicteric sclera ENT: normocephalic atraumatic, no oropharyngeal lesions Neck: supple, symmetric, no JVD, no thyromegaly Heart: RRR, no gallops, no rubs, diminshed peripheral pulses Respiratory: CTAB, no wheezes, no rales, no ronchi Gastrointestinal: soft, non-tender, non-distended, normal bowel sounds, no palpable masses Gastrointestinal - other findings: Suprapubic catheter in place Extremities: no cyanosis, no clubbing, no edema Skin: normal turgor, no lesions Neurological: cranial nerve grossly intact, no new deficit Neurological - other findings: L-sided weakness Musculoskeletal: normal tone, generalized weakness Psychiatric: oriented to person, flat affect Hosp A/P (1) NSTEMI (non-ST elevated myocardial infarction) Code(s): I21.4 - NON-ST ELEVATION (NSTEMI) MYOCARDIAL INFARCTION Status: Acute Plan: medical mgmt with ASA/Lipitor/Coreg, no cardiac catheterization or surgical intervention (2) Stroke Code(s): I63.9 - CEREBRAL INFARCTION, UNSPECIFIED Status: Acute Plan: Bilateral ischemic CVA, medical mgmt with ASA/Lipitor (3) MIRANDA (acute kidney injury) Code(s): N17.9 - ACUTE KIDNEY FAILURE, UNSPECIFIED Status: Acute Plan: Persistent, potential new baseline given NSTEMI, avoid nephrotoxic meds and limit contrast exposure (4) Acute metabolic encephalopathy Code(s): G93.41 - METABOLIC ENCEPHALOPATHY Status: Acute Plan: Persistent, likely multifactorial with component of dementia, supportive mgmt (5) CKD (chronic kidney disease) stage 3, GFR 30-59 ml/min Code(s): N18.3 - CHRONIC KIDNEY DISEASE, STAGE 3 (MODERATE) Status: Chronic Plan: Avoid nephrotoxic meds and limit contrast exposure (6) Complicated UTI (urinary tract infection) Code(s): N39.0 - URINARY TRACT INFECTION, SITE NOT SPECIFIED Status: Acute Plan: Completed treatment, suprapubic catheter in place/chronic (7) Hypernatremia Code(s): E87.0 - HYPEROSMOLALITY AND HYPERNATREMIA Status: Acute Plan: mild elevation, continue routine pureed dietary intake, thickened liquids (8) Physical deconditioning Code(s): R53.81 - OTHER MALAISE Status: Chronic Plan: PT/OT for mobilization, will return to [facility] as primary residence
[2019-04-30] MEDS: Atorvastatin Calcium 40 MG TAB PO SCH (21:47)
[2019-05-01 05:40] LABS: Hemoglobin 9.3 g/dL (14.0-18.0); Mean Corpuscular Hemoglobin 28.7 pg (27.0-31.0); Mean Corpuscular Volume 92.7 fL (78.0-98.0); Mean Platelet Volume 8.1 fL (7.4-10.4); Platelet Count 251 thou/uL (130-400); RBC Distribution Width 15.3 % (11.5-14.5); Red Blood Cell (RBC) Count 3.22 mill/uL (4.70-6.10); White Blood Cell (WBC) Count 13.4 thou/uL (4.8-10.8)
[2019-05-01 05:41] LABS: Lymphocytes 9 % (21-51); MDiff Complete? YES; Monocytes 7 % (0-10); Neutrophil 84 % (42-75); Platelet Morphology Comment Appears Adequate
[2019-05-01 05:52] LABS: ALT (SGPT) 118 U/L (8-55); AST (SGOT) 142 U/L (5-34); Albumin 3.1 g/dL (3.4-4.8); Alkaline Phosphatase 155 U/L (40-110); Anion Gap 18 mmol/L (10-20); BUN (Urea Nitrogen) 52 mg/dL (8.4-25.7); Bilirubin, Total 1.3 mg/dL (0.2-1.2); Calc. Creatinine Clearance 24 mL/min (70-130); Calcium 8.8 mg/dL (7.8-10.44); Carbon Dioxide 17 mmol/L (23-31); Chloride 117 mmol/L (98-107); Estimated GFR-MDRD 28; Glucose 120 mg/dL (83-110); Potassium 4.6 mmol/L (3.5-5.1); Protein, Total 7.1 g/dL (5.8-8.1); Sodium 147 mmol/L (136-145)
[2019-05-01] MEDS: Cefdinir 300 MG CAP PO SCH (08:27)
[2019-05-01] MEDS: Carvedilol 6.25 MG TAB PO SCH ×2 (08:27→17:21)
[2019-05-01] MEDS: Aspirin 81 mg Enteric Coated Tablet PO SCH (08:27)
[2019-05-01] MEDS: Atorvastatin Calcium 40 MG TAB PO SCH (20:39)
--- NOTE | 2019-05-01 22:16 | PDOC.HOSPP ---
- Subjective Encounter Date: 05/01/19 Encounter Time: 10:45 Subjective: f/u s/p NSTEMI, CVA medically managed. Current plans for SNF. No new issues but family noted persistent confusion. - Objective Vital Signs & Weight: Vital Signs (12 hours) Temp Pulse Resp BP BP Pulse Ox 05/01/19 19:15 98.2 F 70 22 H 105/74 100 05/01/19 17:21 119/92 H 05/01/19 15:03 97.9 F 67 20 101/76 98 05/01/19 12:59 65 20 98 05/01/19 11:23 97.4 F L 67 16 102/75 100 Weight Weight 184 lb 9.6 oz Most Recent Monitor Data Heart Rate from ECG 86 NIBP 121/80 NIBP BP-Mean 93 Respiration from ECG 22 SpO2 100 I&O: 04/30/19 05/01/19 05/02/19 06:59 06:59 06:59 Intake Total 1000 480 720 Output Total 1500 1250 700 Balance -500 -770 20 Result Diagrams: 05/01/19 04:56 05/01/19 04:56 Additional Labs: Microbiology 04/25/19 07:47 Venous blood - Left Hand Blood Culture - Final NO GROWTH IN 5 DAYS 04/25/19 07:16 Venous blood - Left Hand Blood Culture - Final NO GROWTH IN 5 DAYS Laboratory Tests 04/25/19 04/25/19 04/25/19 06:40 06:40 10:55 WBC 21.9 H Sodium Creatinine AST Troponin I 18.215 H* 21.886 H* 04/25/19 04/25/19 04/25/19 14:01 18:34 22:28 WBC Sodium Creatinine AST Troponin I 23.040 H* 21.834 H* 21.687 H* 04/26/19 04/26/19 04/26/19 02:09 02:09 09:24 WBC 18.7 H Sodium Creatinine AST 1030 H Troponin I 19.586 H* 04/27/19 04/27/19 04/28/19 03:13 03:13 05:09 WBC 16.9 H Sodium 146 H 145 Creatinine 2.37 H 1.95 H AST 322 H 194 H Troponin I 04/29/19 05:01 WBC Sodium 146 H Creatinine 1.88 H AST 113 H Troponin I EKG Reviewed by me: Yes (Tele - SR) Hospitalist ROS - Medication Medications: Active Medications Generic Name Dose Route Start Last Admin Trade Name Freq PRN Reason Stop Dose Admin Albuterol/Ipratropium 3 ml 04/26/19 13:00 05/01/19 18:52 Duoneb NEB 3 ml [id number] DILCIA Administration Aspirin 81 mg 04/26/19 09:00 05/01/19 08:27 Ecotrin PO 81 mg DAILY DILCIA Administration Atorvastatin Calcium 40 mg 04/25/19 21:00 05/01/19 20:39 Lipitor PO 40 mg HS DILCIA Administration Carvedilol 6.25 mg 04/29/19 17:00 05/01/19 17:21 Coreg PO 6.25 mg BID-WM DILCIA Administration Sodium Chloride 10 ml 04/25/19 21:00 05/01/19 20:40 Flush - Normal Saline IVF Not Given Q12HR DILCIA - Exam General Appearance: NAD, awake alert Eye: PERRL, anicteric sclera ENT: normocephalic atraumatic, no oropharyngeal lesions Neck: supple, symmetric, no JVD, no thyromegaly Heart: RRR, no murmur, no gallops, no rubs Respiratory: CTAB, no wheezes, no rales, no ronchi Gastrointestinal: soft, non-tender, non-distended, normal bowel sounds Gastrointestinal - other findings: suprapubic catheter in place Extremities: no cyanosis, no clubbing Skin: normal turgor, no lesions Neurological: no new deficit Neurological - other findings: L-sided weakness Musculoskeletal: generalized weakness Psychiatric: oriented to person Hosp A/P (1) NSTEMI (non-ST elevated myocardial infarction) Code(s): I21.4 - NON-ST ELEVATION (NSTEMI) MYOCARDIAL INFARCTION Status: Acute Plan: Continue medical mgmt, no surgical intervention recommended (2) Stroke Code(s): I63.9 - CEREBRAL INFARCTION, UNSPECIFIED Status: Acute Plan: Continue medical mgmt (3) MIRANDA (acute kidney injury) Code(s): N17.9 - ACUTE KIDNEY FAILURE, UNSPECIFIED Status: Acute Plan: Add NS IV @ 100ml/h, serial creatinine, avoid nephrotoxic meds and limit contrast exposure (4) Acute metabolic encephalopathy Code(s): G93.41 - METABOLIC ENCEPHALOPATHY Status: Acute Plan: Persistent (5) CKD (chronic kidney disease) stage 3, GFR 30-59 ml/min Code(s): N18.3 - CHRONIC KIDNEY DISEASE, STAGE 3 (MODERATE) Status: Chronic (6) Complicated UTI (urinary tract infection) Code(s): N39.0 - URINARY TRACT INFECTION, SITE NOT SPECIFIED Status: Acute Plan: Levaquin 250mg daily (7) Hypernatremia Code(s): E87.0 - HYPEROSMOLALITY AND HYPERNATREMIA Status: Acute (8) Physical deconditioning Code(s): R53.81 - OTHER MALAISE Status: Chronic Plan: SNF options pending - Plan plan discussed w/ family, continue antibiotics, PT/OT, rn social work, speech therapy, out of bed/ambulate, DVT proph w/SCDs Stable currently IVF NS @ 100ml/h Pureed/Thickened liquids CM for SNF options Continue ASA/Lipitor/Coreg Likely d/c in 24h
[2019-05-02] MEDS: Sodium Chloride 0.9% 1,000 ML IV SCH ×2 (02:15→12:58)
--- NOTE | 2019-05-02 04:20 | DIS ---
DATE OF ADMISSION: 04/25/2019 DATE OF DISCHARGE: 05/01/2019 DISCHARGE DIAGNOSES: 1. Non-ST elevation myocardial infarction, medically managed. 2. Acute bilateral ischemic cerebrovascular accident, medical management. 3. Acute kidney injury on chronic kidney disease, stage 3. 4. Acute metabolic encephalopathy multifactorial with component of dementia. 5. Urinary tract infection with previous Escherichia coli species complicated by a suprapubic catheter. 6. Hypernatremia, mild. 7. Physical deconditioning, chronic. CONSULTATIONS: 1. Dr. Gomez with Neurology Service. 2. Dr. Laughlin with Cardiology Service. 3. Dr. Clements with Pulmonology/Critical Care Service. PERTINENT LABORATORY AND X-RAY FINDINGS: Sodium ranged between 138 to 147. Creatinine ranged between 1.79 to 2.64. Estimated GFR ranged between 28 to 44. Lactic acid level ranged between 4.3 to 9.5. AST ranged between 112 to 1030. ALT ranged between 38 to 277. Troponin I ranged between 18.22 to 23.04. CBC showed a white blood cell count ranged between 13.4 to 21.9. Hemoglobin ranged between 8.6 to 10.3. Blood cultures x2 dated 04/25/2019, showed no growth at 5 days. Urine culture from 04/16/2019, showed greater than 100,000 colonies of mixed skin and enteric get. CT of the brain without contrast dated 04/25/2019, showed no acute intracranial process. CT angiogram of [place] dated 04/25/2019, showed short-segment moderate to severe stenosis within the distal left vertebral artery and mid basilar artery. Mild calcified plaque with approximate 50% luminal stenosis at the right carotid bulb and right internal carotid artery origin. Short segment severe right mid posterior cerebral artery stenosis. Portable chest x-ray dated 04/25/2019, showed mild widening and increased density in the upper mediastinum. Vascular prominence noted. Left pleural effusion. CT of the chest with dissection protocol dated 04/25/2019, showed no aortic dissection. 4 cm fusiform infrarenal abdominal aortic aneurysm with chronic mural thrombus. 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 Moderate-sized pericardial effusion. Bilateral renal cysts. MRI of the brain dated 04/25/2019, showed multiple foci of acute infarct within the bilateral supratentorial and infratentorial regions. 2D transthoracic echocardiogram dated 04/25/2019, showed ejection fraction 40% to 45% with inferior and posterior hypokinesis. Diastolic dysfunction. Right atrial enlargement. Moderate mitral regurgitation. Mild pericardial effusion without tamponade. HOSPITAL COURSE: The patient initially presented with change in mentation in the context of previous diagnosis of urinary tract infection and influenza in the context of chronic suprapubic catheter. Patient previously treated for E coli urinary tract infection on Levaquin. The patient presented with change in mental status, undergoing extensive neuroimaging showing evidence of multi-vessel cerebrovascular disease and MRI imaging confirming bilateral ischemic infarcts. The patient also was noted with acute myocardial infarction with troponins in the 18 to 20 range. The patient was evaluated by the Cardiology Service with recommendations for general medical management due to comorbid status, and acute kidney injury. The patient continued on aspirin therapy in addition to Lipitor and Coreg through the remainder of the hospital course. The patient also continued general medical management for the acute CVA after discussions with the Neurology Service. The patient continued antibiotic coverage for suspected urinary tract infection given chronic suprapubic catheter, which was changed during this hospital stay. The patient was also evaluated for potential pericardial effusion; however, 2D transthoracic echocardiogram showed small pericardial effusion without evidence of tamponade, without recommendations for any further intervention. The patient continued to clinically stabilize with general supportive management, walking short distance with rolling walker and standby/contact guard assistance. Due to the patient's overall multiple comorbid status, deconditioning, and current clinical status, the patient was deemed appropriate candidate for ongoing skilled care. I have examined the patient at the time of discharge and discussed disposition planning. The patient was ready for discharge on 05/01/2019. DISCHARGE MEDICATIONS: 1. Enteric-coated aspirin 81 mg p.o. daily. 2. Lipitor 40 mg p.o. at bedtime. 3. Coreg 6.25 mg p.o. b.i.d. 4. DuoNeb 3 mL nebulized q.6 hours p.r.n. 5. Levaquin 250 mg p.o. daily x7 days. FOLLOWUP: The patient may follow up with Dr. Rico upon discharge. CONDITION ON DISCHARGE: Guarded. ACTIVITY: Ad marlena, rolling walker with contact guard/standby assistance. DIET: Heart healthy. Pureed with thickened liquids with increased water intake daily. CODE STATUS: Do not attempt resuscitation. DISPOSITION: Discharged to [place], [place], 05/01/2019. TIME SPENT: Total time preparing and coordinating discharge, 37 minutes. Job ID: [id number]
[2019-05-02 05:31] LABS: ALT (SGPT) 91 U/L (8-55); AST (SGOT) 104 U/L (5-34); Albumin 2.7 g/dL (3.4-4.8); Alkaline Phosphatase 152 U/L (40-110); Anion Gap 18 mmol/L (10-20); BUN (Urea Nitrogen) 55 mg/dL (8.4-25.7); Calc. Creatinine Clearance 25 mL/min (70-130); Calcium 8.5 mg/dL (7.8-10.44); Carbon Dioxide 16 mmol/L (23-31); Chloride 122 mmol/L (98-107); Estimated GFR-MDRD 29; Globulin 4.3 g/dL (2.4-3.5); Glucose 121 mg/dL (83-110); Potassium 5.7 mmol/L (3.5-5.1); Sodium 150 mmol/L (136-145)
[2019-05-02] MEDS: Aspirin 81 mg Enteric Coated Tablet PO SCH (08:29)
[2019-05-02] MEDS: Carvedilol 6.25 MG TAB PO SCH ×2 (08:30→16:10)
--- NOTE | 2019-05-02 14:09 | PDOC.HOSPP ---
- Subjective Encounter Date: 05/02/19 Encounter Time: 14:00 Subjective: f/u s/p CVA/NSTEMI medically managed. Receiving IVF's due to MIRANDA and mild hyperkalemia. Remains confused but calm per nursing. No new issues reported. - Objective Vital Signs & Weight: Vital Signs (12 hours) Temp Pulse Pulse Pulse Resp BP BP 05/02/19 12:56 78 16 05/02/19 11:15 98.4 F 68 24 H 05/02/19 09:20 83 70 114/89 05/02/19 08:30 113/85 05/02/19 07:18 97.5 F L 88 16 05/02/19 07:10 05/02/19 07:09 77 16 05/02/19 04:00 97.3 F L 67 24 H BP BP Pulse Ox 05/02/19 12:56 95 05/02/19 11:15 108/77 100 05/02/19 09:20 120/94 H 05/02/19 08:30 05/02/19 07:18 112/77 95 05/02/19 07:10 95 05/02/19 07:09 95 05/02/19 04:00 112/85 100 Weight Weight 182 lb 8 oz Most Recent Monitor Data Heart Rate from ECG 86 NIBP 121/80 NIBP BP-Mean 93 Respiration from ECG 22 SpO2 100 I&O: 05/01/19 05/02/19 05/03/19 06:59 06:59 06:59 Intake Total 480 1400 Output Total 1250 1500 Balance -770 -100 Result Diagrams: 05/01/19 04:56 05/02/19 04:26 Additional Labs: Microbiology 04/25/19 07:47 Venous blood - Left Hand Blood Culture - Final NO GROWTH IN 5 DAYS 04/25/19 07:16 Venous blood - Left Hand Blood Culture - Final NO GROWTH IN 5 DAYS Laboratory Tests 04/25/19 04/25/19 04/25/19 06:40 06:40 10:55 WBC 21.9 H Sodium Creatinine AST Troponin I 18.215 H* 21.886 H* 04/25/19 04/25/19 04/25/19 14:01 18:34 22:28 WBC Sodium Creatinine AST Troponin I 23.040 H* 21.834 H* 21.687 H* 04/26/19 04/26/19 04/26/19 02:09 02:09 09:24 WBC 18.7 H Sodium Creatinine AST 1030 H Troponin I 19.586 H* 04/27/19 04/27/19 04/28/19 03:13 03:13 05:09 WBC 16.9 H Sodium 146 H 145 Creatinine 2.37 H 1.95 H AST 322 H 194 H Troponin I 04/29/19 05:01 WBC Sodium 146 H Creatinine 1.88 H AST 113 H Troponin I EKG Reviewed by me: Yes (Tele - SR) Hospitalist ROS - Medication Medications: Active Medications Generic Name Dose Route Start Last Admin Trade Name Freq PRN Reason Stop Dose Admin Albuterol/Ipratropium 3 ml 04/26/19 13:00 05/02/19 12:56 Duoneb NEB 3 ml [id number] DILCIA Administration Aspirin 81 mg 04/26/19 09:00 05/02/19 08:29 Ecotrin PO 81 mg DAILY DILCIA Administration Atorvastatin Calcium 40 mg 04/25/19 21:00 05/01/19 20:39 Lipitor PO 40 mg HS DILCIA Administration Carvedilol 6.25 mg 04/29/19 17:00 05/02/19 08:30 Coreg PO 6.25 mg BID-WM DILCIA Administration Sodium Chloride 10 ml 04/25/19 21:00 05/02/19 08:30 Flush - Normal Saline IVF 10 ml Q12HR DILCIA Administration - Exam General Appearance: NAD, awake alert Eye: PERRL, anicteric sclera ENT: normocephalic atraumatic, no oropharyngeal lesions Neck: supple, symmetric, no JVD, no thyromegaly Heart: RRR, no murmur, no gallops, no rubs, normal peripheral pulses Respiratory: CTAB, no wheezes, no rales, no ronchi Gastrointestinal: soft, non-tender, non-distended, normal bowel sounds, no palpable masses Extremities: no cyanosis, no clubbing, no edema Skin: normal turgor, no lesions Neurological: cranial nerve grossly intact, no new deficit Neurological - other findings: L-sided weakness Musculoskeletal: normal tone, generalized weakness Psychiatric: oriented to person Hosp A/P (1) NSTEMI (non-ST elevated myocardial infarction) Code(s): I21.4 - NON-ST ELEVATION (NSTEMI) MYOCARDIAL INFARCTION Status: Acute Plan: Medical mgmt, no surgical intervention (2) Stroke Code(s): I63.9 - CEREBRAL INFARCTION, UNSPECIFIED Status: Acute Plan: Medical mgmt (3) MIRANDA (acute kidney injury) Code(s): N17.9 - ACUTE KIDNEY FAILURE, UNSPECIFIED Status: Acute Plan: Continue IVF's and avoid nephrotoxic meds and limit contrast exposure, serial creatinine (4) Hyperkalemia Code(s): E87.5 - HYPERKALEMIA Status: Acute Plan: Continue IVF's, avoid KCL supplementation, repeat K+ level in am (5) Acute metabolic encephalopathy Code(s): G93.41 - METABOLIC ENCEPHALOPATHY Status: Acute Plan: Persistent, likely component of dementia, supportive mgmt (6) CKD (chronic kidney disease) stage 3, GFR 30-59 ml/min Code(s): N18.3 - CHRONIC KIDNEY DISEASE, STAGE 3 (MODERATE) Status: Chronic (7) Complicated UTI (urinary tract infection) Code(s): N39.0 - URINARY TRACT INFECTION, SITE NOT SPECIFIED Status: Acute Plan: Plan for Levaquin x 7 days (8) Hypernatremia Code(s): E87.0 - HYPEROSMOLALITY AND HYPERNATREMIA Status: Acute Plan: Secondary to dehydration, change IVF D5W @ 100ml/h, repeat Na+ in am (9) Physical deconditioning Code(s): R53.81 - OTHER MALAISE Status: Chronic Plan: PT/OT for mobilization - Plan continue antibiotics, PT/OT, social media intern, out of bed/ambulate Stable currently Change IVF D5W @ 100ml/h Pureed/Thickened liquids CM for SNF options Continue ASA/Lipitor/Coreg AM lab: CMP Awaiting SNF options
[2019-05-02] MEDS ORDERED: Dextrose 5% in Water 1,000 ML IV SCH (14:15)
[2019-05-02 15:58] VITALS: BP 117/82; TEMP 97.7
[2019-05-02] MEDS ORDERED: Bisacodyl 10 MG SUPP PR SCH (16:00)
[2019-05-02] MEDS ORDERED: Polyethylene Glycol 3350 17 GM Packet PO SCH (16:00)
--- NOTE | 2019-05-03 09:37 | DIS ---
DATE OF ADMISSION: 04/25/2019 DATE OF DISCHARGE: 05/02/2019 ADDENDUM: HOSPITAL COURSE: The patient's discharge was held for approximately 24 hours due to insurance authorization/approval in addition to dehydration, requiring IV fluid administration. The patient was initially placed on normal saline due to mild dehydration, transitioning to IV D5 water due to hypernatremia and hyperkalemia. The patient tolerated the IV fluids with recommendations to continue for approximately 24 hours after discharge with serial monitoring of electrolytes and renal function. Overall, the patient did remain clinically stable during the hospital course with stable vital signs at the time of discharge. I have examined the patient at the time of discharge, and the patient is clinically stable and ready for transfer on 05/02/2019. Please see dictated discharge summary of 05/01/2019 for full details and medication reconciliation. Job ID: [id number]
== END 2019-05-02 17:35 | DRG 64 ==
LOC: ERS 06:17 → CCU 08:28 → 2SE 04-27 14:16
PROVIDERS: ADMIT Internal Medicine; ATTEND Internal Medicine
DX: I63.9 Cerebral infarction, unspecified (principal); A41.9 Sepsis, unspecified organism; G93.41 Metabolic encephalopathy; I21.4 Non-ST elevation (NSTEMI) myocardial infarction; T83.511A Infection and inflammatory reaction due to indwelling urethral catheter, initial encounter; E87.2 Acidosis; E44.0 Moderate protein-calorie malnutrition; I31.3 Pericardial effusion (noninflammatory); N39.0 Urinary tract infection, site not specified; E87.0 Hyperosmolality and hypernatremia; I13.0 Hypertensive heart and chronic kidney disease with heart failure and stage 1 through stage 4 chronic kidney disease, or unspecified chronic kidney disease; Z68.22 Body mass index [BMI] 22.0-22.9, adult; R47.81 Slurred speech; F03.90 Unspecified dementia, unspecified severity, without behavioral disturbance, psychotic disturbance, mood disturbance, and anxiety; Z66 Do not resuscitate; N40.0 Benign prostatic hyperplasia without lower urinary tract symptoms; N18.3 Chronic kidney disease, stage 3 (moderate); I50.9 Heart failure, unspecified; E87.5 Hyperkalemia; R29.727 NIHSS score 27; Z86.718 Personal history of other venous thrombosis and embolism; Z85.46 Personal history of malignant neoplasm of prostate; Y84.6 Urinary catheterization as the cause of abnormal reaction of the patient, or of later complication, without mention of misadventure at the time of the procedure
CPT/HCPCS: 36415; 36416; 70450; 70496; 70498; 70551; 71045; 71275; 72191; 74175; 80053; 80202; 81003; 81015; 82553; 83605; 84484; 85007; 85025; 85027; 85610; 85730; 87040; 93005; 93306; 94640; 96361; 96365; 96367; J0295; J0692; J0696; J2543; J3370; J3490; J7050; J7620; Q9967